=== PATIENT | female | born 1970 ===

== ENCOUNTER 2017-04-28 11:47 | Inpatient (IN) | payer MEDICAID ==
[2017-04-28 11:50] VITALS: BMI 26.4
[2017-04-28] MEDS ORDERED: (Novolin R) Insulin Human Regular 100 units/ml vial IV STA ×2 (12:22)
[2017-04-28] MEDS ORDERED: Sodium Chloride 0.9% 1,000 ML IV ONE ×2 (12:22→13:40)
[2017-04-28] MEDS ORDERED: Sodium Chloride 0.9% 1,000 ML ONE (12:32)
[2017-04-28 12:50] LABS: BASO # 0.1 K/uL (0.0-0.2); BASO % 0.9 % (0.0-2.0); EOS # 0.1 K/uL (0.0-0.7); EOS % 1.8 % (0.0-4.0); HEMOGLOBIN 15.6 g/dL (11.0-16.0); MEAN CELL VOLUME 89.2 fL (81.0-99.0); MEAN CORPUSCULAR HGB CONC 33.6 g/dL (33.0-37.0); MEAN PLATELET VOLUME 10.6 fL (7.2-11.7); MONO # 0.4 K/uL (0.0-0.8); MONO % 7.1 % (0.0-10.0); NEUT # 3.4 K/uL (1.8-7.0); NEUT % 57.2 % (50.0-75.0); NRBC % 0.3 % (0.0-2.0); RBC 5.19 Mil/uL (3.80-5.20); RED CELL DISTRIBUTION WIDTH 12.7 % (11.5-14.5)
[2017-04-28] MEDS ORDERED: (Novolin R) Insulin Human Regular 100 units/ml vial ONE ×2 (12:55→15:32)
[2017-04-28 12:59] LABS: ALBUMIN 3.9 g/dL (3.5-5.0)
[2017-04-28 13:01] LABS: AST/SGOT 102 U/L (14-36); GFR AFRICAN-AMERICAN > 60; GFR NON-AFRICAN AMERICAN > 60
[2017-04-28 13:01] LABS: VENOUS BLOOD GAS BASE EXCESS 1.7 mmol/L (0.0-2.0); VENOUS BLOOD GAS PCO2 28 mmHg (40-60); VENOUS BLOOD GAS PO2 47 mm/Hg (30-55); VENOUS BLOOD PH 7.53 (7.32-7.43)
[2017-04-28 13:02] LABS: ALT/SGPT 125 U/L (9-52); BLOOD UREA NITROGEN 13 mg/dL (7-17); CALCIUM 9.7 mg/dl (8.6-10.4); LIPASE 110 U/L (23-300)
[2017-04-28 13:26] LABS: CK-MB 0.29 ng/mL (0.0-3.38)
[2017-04-28 13:47] LABS: SQUAMOUS EPITHIAL 6 /hpf (0-5); URINE BACTERIA OCC (<OCC); URINE BILIRUBIN NEGATIVE (NEGATIVE); URINE BLOOD NEGATIVE (NEGATIVE); URINE CLARITY Clear (Clear); URINE COLOR Yellow (YELLOW); URINE GLUCOSE (UA) 3+ mg/dL (Normal); URINE NITRATE NEGATIVE (NEGATIVE); URINE PROTEIN NEGATIVE (NEGATIVE)
[2017-04-28 13:49] LABS: URINE LEUKOCYTE ESTERASE 1+ Leu/uL (Negative)
[2017-04-28] MEDS ORDERED: Morphine 4 MG/ML VIAL ONE ×2 (14:07→15:32)
[2017-04-28] MEDS ORDERED: Iodixanol 320 mg/ml 150 ml Bottle IV ONE (14:32)
[2017-04-28] MEDS ORDERED: (Novolin R) Insulin Human Regular 100 units/ml vial IV ONE (15:15)
--- NOTE | 2017-04-28 15:38 | CT ---
CT abdomen and pelvis History: Abdominal pain. Comparison: CT scan dated 04/20/2012 Technique: Multiple contiguous axial images were performed through the abdomen and pelvis with the use intravenous contrast. Subsequently, sagittal and coronal reformatted images were obtained. This CT exam was performed using one or more of the following dose reduction techniques: Automated exposure control, adjustment of the mA and/or kV according to patient size, and/or use of iterative reconstruction technique. Findings: 2 millimeter subpleural nodule along the right-sided fissure on series 3, image 1. Mild bibasilar atelectasis. No pleural or pericardial effusion. Enlarged liver with diffuse fatty infiltration and mild intrahepatic biliary ductal dilatation. Mild prominence of the common bile duct. Distended gallbladder. Prominent spleen. Adrenal glands are preserved. Pancreas is preserved. Gastric wall appears moderately thickened, nonspecific. Right kidney: No calculi or hydronephrosis. Left Kidney: No calculi or hydronephrosis. Moderate amount of air seen within the anterior aspect of the urinary bladder. Please correlate with recent instrumentation. In the absence of recent instrumentation, underlying emphysematous cystitis cannot be excluded. Clinical correlation. Heterogeneous uterus and bilateral adnexa. Prominent 8 millimeter calcification in the region of the left adnexa. Under distended and/or thickened sigmoid colon. Colonic diverticulosis. Fecal retention in the colon. Appendix is visualized best seen on series 3 images 120 through 138. Appendix is mildly prominent measuring up to 8.8 millimeters. No gross adjacent fat stranding or fluid. Indeterminate. Clinical correlation. Calcification and plaque within the aorta and iliac vessels. Few shotty para-aortic and inguinal lymph nodes. Few shotty mesenteric lymph nodes. Small fat containing umbilical hernia. Degenerative changes in the spine. Prominent posterior disc osteophyte complex at the L5-S1 level. Impression: 2 millimeter subpleural nodule along the right-sided fissure on series 3, image 1. Mild bibasilar atelectasis. No pleural or pericardial effusion. Enlarged liver with diffuse fatty infiltration and mild intrahepatic biliary ductal dilatation. Mild prominence of the common bile duct. Distended gallbladder. Prominent spleen. Adrenal glands are preserved. Pancreas is preserved. Gastric wall appears moderately thickened, nonspecific. Right kidney: No calculi or hydronephrosis. Left Kidney: No calculi or hydronephrosis. Moderate amount of air seen within the anterior aspect of the urinary bladder. Please correlate with recent instrumentation. In the absence of recent instrumentation, underlying emphysematous cystitis cannot be excluded. Clinical correlation. Heterogeneous uterus and bilateral adnexa. Prominent 8 millimeter calcification in the region of the left adnexa. Under distended and/or thickened sigmoid colon. Colonic diverticulosis. Fecal retention in the colon. Appendix is visualized best seen on series 3 images 120 through 138. Appendix is mildly prominent measuring up to 8.8 millimeters. No gross adjacent fat stranding or fluid. Indeterminate. Clinical correlation. Calcification and plaque within the aorta and iliac vessels. Few shotty para-aortic and inguinal lymph nodes. Few shotty mesenteric lymph nodes. Small fat containing umbilical hernia. Degenerative changes in the spine. Prominent posterior disc osteophyte complex at the L5-S1 level. Impression: 4 millimeter subpleural nodule along the right-sided fissure on series 3, image 1. Mild bibasilar atelectasis. No pleural or pericardial effusion. Enlarged liver with diffuse fatty infiltration and mild intrahepatic biliary ductal dilatation. Mild prominence of the common bile duct. Distended gallbladder. Prominent spleen. Adrenal glands are preserved. Pancreas is preserved. Gastric wall appears moderately thickened, nonspecific. Right kidney: No calculi or hydronephrosis. Left Kidney: No calculi or hydronephrosis. Moderate amount of air seen within the anterior aspect of the urinary bladder. Please correlate with recent instrumentation. In the absence of recent instrumentation, underlying emphysematous cystitis cannot be excluded. Clinical correlation. Heterogeneous uterus and bilateral adnexa. Prominent 8 millimeter calcification in the region of the left adnexa. Under distended and/or thickened sigmoid colon. Colonic diverticulosis. Fecal retention in the colon. Appendix is visualized best seen on series 3 images 120 through 138. Appendix is mildly prominent measuring up to 8.8 millimeters. No gross adjacent fat stranding or fluid. Indeterminate. Clinical correlation. Calcification and plaque within the aorta and iliac vessels. Few shotty para-aortic and inguinal lymph nodes. Few shotty mesenteric lymph nodes. Small fat containing umbilical hernia. Degenerative changes in the spine. Prominent posterior disc osteophyte complex at the L5-S1 level. Impression: 1. Moderate amount of air seen within the anterior aspect of the urinary bladder. Please correlate with recent instrumentation. In the absence of recent instrumentation, underlying emphysematous cystitis cannot be excluded. Clinical correlation. 2. Under distended and/or thickened sigmoid colon. Colonic diverticulosis. Clinical correlation. 3. Appendix is visualized best seen on series 3 images 120 through 138. Appendix is mildly prominent measuring up to 8.8 millimeters. No gross adjacent fat stranding or fluid. Indeterminate. Clinical correlation. 4. Enlarged liver with diffuse fatty infiltration and mild intrahepatic biliary ductal dilatation. Mild prominence of the common bile duct. 5. Distended gallbladder. 6. Prominent spleen. 7. Gastric wall appears moderately thickened, nonspecific. Clinical correlation. 8. Heterogeneous uterus and bilateral adnexa. Prominent 8 millimeter calcification in the region of the left adnexa. 8. 4 millimeter subpleural nodule along the right-sided fissure on series 3, image 1. Mild bibasilar atelectasis. 9. Prominent posterior disc osteophyte complex at the L5-S1 level.
--- NOTE | 2017-04-28 15:52 | C.PDOC ---
History Of Present Illness 46 year old female presents to the ED with complaints of bilateral lower leg pain since yesterday. Patient notes she was diagnosed with neuropathy and has had similar symptoms for many months. She also complains of nausea, vomiting, dysuria, urinary frequency, and thirst. Patient states she is complaint with medications and took ibuprofen for symptoms with no relief. She denies any fever or other complaints at this time. Time Seen by Provider: 04/28/17 12:10 Chief Complaint (Nursing): Lower Extremity Problem/Injury History Per: Patient History/Exam Limitations: no limitations Onset/Duration Of Symptoms: Days (since yesterday has had nausea, vomiting, dysuria, urinary frequency, and thirst ), Persistent (similiar bilateral leg pain for months ) Current Symptoms Are (Timing): Still Present Recent travel outside of the [place]: No Past Medical History Reviewed: Historical Data, Nursing Documentation, Vital Signs Vital Signs: Last Vital Signs Temp 98.1 F 04/28/17 17:02 Pulse 64 04/28/17 17:02 Resp 18 04/28/17 17:02 BP 136/92 H 04/28/17 17:02 Pulse Ox 100 04/28/17 18:00 - Medical History PMH: Anxiety, Bipolar Disorder, Diabetes, Post Traumatic Stress Disorder Family History: States: Unknown Family Hx - Social History Hx Tobacco Use: Yes Hx Alcohol Use: No Hx Substance Use: Yes (Methadone) - Immunization History Hx Tetanus Toxoid Vaccination: No Hx Influenza Vaccination: No Hx Pneumococcal Vaccination: No Review Of Systems Constitutional: Positive for: Other (increase thirst ). Negative for: Fever, Chills Cardiovascular: Negative for: Chest Pain Respiratory: Negative for: Cough, Shortness of Breath Gastrointestinal: Positive for: Nausea, Vomiting. Negative for: Diarrhea Genitourinary: Positive for: Dysuria, Frequency Neurological: Negative for: Weakness, Numbness, Headache Physical Exam - Physical Exam Appears: Non-toxic, In Acute Distress (painful) Skin: Warm, Dry Head: Atraumatic, Normacephalic Eye(s): bilateral: Normal Inspection, EOMI Nose: Normal Oral Mucosa: Moist Neck: Supple Chest: Symmetrical, No Deformity Cardiovascular: Rhythm Regular Respiratory: Normal Breath Sounds, No Rhonchi, No Wheezing Gastrointestinal/Abdominal: Soft, Tenderness (diffuse abdominal tenderness ), No Distention, No Guarding, No Rebound Back: No CVA Tenderness, No Vertebral Tenderness, Paraspinal Tenderness (lower paralumbar/buttock tenderness) Extremity: Normal ROM, Capillary Refill (good capillary refill ), No Swelling ( no increase swelling ), Other (diffuse leg tenderness; track rowe on legs (pt notes they are old); no erythema ) Extremity: Bilateral: Atraumatic, Normal Color And Temperature, Normal ROM Pulses: Left Dorsalis Pedis: Normal, Right Dorsalis Pedis: Normal Neurological/Psych: Oriented x3, Normal Speech, Normal Cognition, Normal Motor, Normal Sensation Gait: Steady ED Course And Treatment - Laboratory Results Result Diagrams: 04/28/17 12:33 04/28/17 12:41 ECG: Interpreted By Me, Viewed By Me ECG Rhythm: Sinus Rhythm ECG Interpretation: No Acute Changes Rate From EC (bpm) O2 Sat by Pulse Oximetry: 100 (room air ) Pulse Ox Interpretation: Normal - CT Scan/US Abd & pelvis CT Other Rad Studies (CT/US): Read By Radiologist, Radiology Report Reviewed CT/US Interpretation: Findings: 2 millimeter subpleural nodule along the right- sided fissure on series 3, image 1. Mild bibasilar atelectasis. No pleural or pericardial effusion. Enlarged liver with diffuse fatty infiltration and mild intrahepatic biliary ductal dilatation. Mild prominence of the common bile duct. Distended gallbladder. Prominent spleen. Adrenal glands are preserved. Pancreas is preserved. Gastric wall appears moderately thickened, nonspecific. Right kidney: No calculi or hydronephrosis. Left Kidney: No calculi or hydronephrosis. Moderate amount of air seen within the anterior aspect of the urinary bladder. Please correlate with recent instrumentation. In the absence of recent instrumentation, underlying emphysematous cystitis cannot be excluded. Clinical correlation. Heterogeneous uterus and bilateral adnexa. Prominent 8 millimeter calcification in the region of the left adnexa. Under distended and/or thickened sigmoid colon. Colonic diverticulosis. Fecal retention in the colon. Appendix is visualized best seen on series 3 images 120 through 138. Appendix is mildly prominent measuring up to 8.8 millimeters. No gross adjacent fat stranding or fluid. Indeterminate. Clinical correlation. Calcification and plaque within the aorta and iliac vessels. Few shotty para-aortic and inguinal lymph nodes. Few shotty mesenteric lymph nodes. Small fat containing umbilical hernia. Degenerative changes in the spine. Prominent posterior disc osteophyte complex at the L5-S1 level. Impression: 2 millimeter subpleural nodule along the right-sided fissure on series 3, image 1. Mild bibasilar atelectasis. No pleural or pericardial effusion. Enlarged liver with diffuse fatty infiltration and mild intrahepatic biliary ductal dilatation. Mild prominence of the common bile duct. Distended gallbladder. Prominent spleen. Adrenal glands are preserved. Pancreas is preserved. Gastric wall appears moderately thickened, nonspecific. Right kidney: No calculi or hydronephrosis. Left Kidney: No calculi or hydronephrosis. Moderate amount of air seen within the anterior aspect of the urinary bladder. Please correlate with recent instrumentation. In the absence of recent instrumentation, underlying emphysematous cystitis cannot be excluded. Clinical correlation. Heterogeneous uterus and bilateral adnexa. Prominent 8 millimeter calcification in the region of the left adnexa. Under distended and/or thickened sigmoid colon. Colonic diverticulosis. Fecal retention in the colon. Appendix is visualized best seen on series 3 images 120 through 138. Appendix is mildly prominent measuring up to 8.8 millimeters. No gross adjacent fat stranding or fluid. Indeterminate. Clinical correlation. Calcification and plaque within the aorta and iliac vessels. Few shotty para-aortic and inguinal lymph nodes. Few shotty mesenteric lymph nodes. Small fat containing umbilical hernia. Degenerative changes in the spine. Prominent posterior disc osteophyte complex at the L5-S1 level. Impression: 4 millimeter subpleural nodule along the right-sided fissure on series 3, image 1. Mild bibasilar atelectasis. No pleural or pericardial effusion. Enlarged liver with diffuse fatty infiltration and mild intrahepatic biliary ductal dilatation. Mild prominence of the common bile duct. Distended gallbladder. Prominent spleen. Adrenal glands are preserved. Pancreas is preserved. Gastric wall appears moderately thickened, nonspecific. Right kidney: No calculi or hydronephrosis. Left Kidney: No calculi or hydronephrosis. Moderate amount of air seen within the anterior aspect of the urinary bladder. Please correlate with recent instrumentation. In the absence of recent instrumentation, underlying emphysematous cystitis cannot be excluded. Clinical correlation. Heterogeneous uterus and bilateral adnexa. Prominent 8 millimeter calcification in the region of the left adnexa. Under distended and/or thickened sigmoid colon. Colonic diverticulosis. Fecal retention in the colon. Appendix is visualized best seen on series 3 images 120 through 138. Appendix is mildly prominent measuring up to 8.8 millimeters. No gross adjacent fat stranding or fluid. Indeterminate. Clinical correlation. Calcification and plaque within the aorta and iliac vessels. Few shotty para-aortic and inguinal lymph nodes. Few shotty mesenteric lymph nodes. Small fat containing umbilical hernia. Degenerative changes in the spine. Prominent posterior disc osteophyte complex at the L5-S1 level. Impression: 1. Moderate amount of air seen within the anterior aspect of the urinary bladder. Please correlate with recent instrumentation. In the absence of recent instrumentation, underlying emphysematous cystitis cannot be excluded. Clinical correlation. 2. Under distended and/or thickened sigmoid colon. Colonic diverticulosis. Clinical correlation. 3. Appendix is visualized best seen on series 3 images 120 through 138. Appendix is mildly prominent measuring up to 8.8 millimeters. No gross adjacent fat stranding or fluid. Indeterminate. Clinical correlation. 4. Enlarged liver with diffuse fatty infiltration and mild intrahepatic biliary ductal dilatation. Mild prominence of the common bile duct. 5. Distended gallbladder. 6. Prominent spleen. 7. Gastric wall appears moderately thickened, nonspecific. Clinical correlation. 8. Heterogeneous uterus and bilateral adnexa. Prominent 8 millimeter calcification in the region of the left adnexa. 8. 4 millimeter subpleural nodule along the right-sided fissure on series 3, image 1. Mild bibasilar atelectasis. 9. Prominent posterior disc osteophyte complex at the L5-S1 level. Progress Note: Upon re-evaluation patient states abdominal pain persists. Morphine and CT scan were ordered and patient notes some improvement. CT results reviewed. Pt denies any procedure or catheter. CT scan results were discussed with Dr. Wall who instructs medical admission and ID consult. Disposition - Disposition Disposition: HOSPITALIZED Disposition Time: 17:00 Condition: STABLE - Clinical Impression Clinical Impression: Uncontrolled diabetes mellitus, Cystitis, Neuropathy - Scribe Statement The provider has reviewed the documentation as recorded by the Scribe Rachell Bailey All medical record entries made by the Lemuelibe were at my direction and personally dictated by me. I have reviewed the chart and agree that the record accurately reflects my personal performance of the history, physical exam, medical decision making, and the department course for this patient. I have also personally directed, reviewed, and agree with the discharge instructions and disposition.
[2017-04-28] MEDS ORDERED: cefTRIAXone IV 1 gm in Dextros 50 ML IV ONE (16:55)
[2017-04-28] MEDS ORDERED: cefTRIAXone IV 1 gm in Dextros 50 ML IVPB ONE (17:32)
[2017-04-28] MEDS ORDERED: DiphenhydrAMINE 50 mg/ml Inj IVP STA (19:03)
[2017-04-28] MEDS ORDERED: MethylPREDNISolone 40 mg Vial IVP STA (19:03)
--- NOTE | 2017-04-28 19:57 | CP.PCM.HP ---
<Olivia Velez - Last Filed: 04/28/17 20:28> History of Present Illness - History of Present Illness History of Present Illness: cc: Leg and abdominal pain Patient is a 46 F with PMH of DM, HTN, Hep C, heroin/cocain/alcohol abuser 4 years ago who presents to the ED with bilateral leg and abdominal pain that has been getting worse since Saturday. Patient also has urinary frequency and burning that his been on and off for 3 months and has never been treated. Patient describes her urine as beer colored and foamy. Patient describes the abdominal pain to be in the LLQ and RUQ and has had nausea and two episodes of vomiting over the weekend. Patient says her legs feel like they are burning. Patient denies chest pain now although she says she had some when she first came to the ED. She denies headache, palpitations, shortness of breath, constipation, or diarrhea. PMH:DM, HTN, Hep C, heroin/cocain/alcohol abuser 4 years ago Psurgical: back abscess, abdominal abscess many years ago Family hx: Mom and Aunt-DM Socialhx: tobacco: 5 cigarettes per day for about 30 years EtOH: sober for 4 years, used to drink one bottle of hard liquor per day Drugs: sober for 4 years, used to inject heroin, snort cocaine goes to [facility] Home Meds:Neurontin 800mg lantus 25 u daily humalog with meals metformin 500 mg daily ambien 10 mg HS htn medication seroquel constipation medication PRN Present on Admission - Present on Admission Any Indicators Present on Admission: Yes History of DVT/PE: No History of Uncontrolled Diabetes: Yes Urinary Catheter: No Decubitus Ulcer Present: No Review of Systems - Constitutional Constitutional: absent: Fever, Headache - EENT Eyes: absent: Blurred Vision Nose/Mouth/Throat: absent: Nasal Congestion, Hoarsness, Sore Throat - Cardiovascular Cardiovascular: absent: Chest Pain, Diaphoresis, Dyspnea on Exertion, Edema, Leg Edema, Lightheadedness - Respiratory Respiratory: absent: Cough, Dyspnea, Wheezing - Gastrointestinal Gastrointestinal: absent: Constipation, Diarrhea, Hematochezia - Genitourinary Genitourinary: Dysuria, Flank Pain, Urinary Frequency Additional comments: mild left flank pain - Reproductive: Female Reproductive:Female: Post Menopausal - Musculoskeletal Musculoskeletal: Arthralgias, Myalgias Additional comments: burning in legs - Integumentary Integumentary: absent: Bleeding Lesions, Changing Lesions, Erythema, Swelling - Neurological Neurological: Burning Sensations. absent: Headaches - Psychiatric Psychiatric: absent: Confusion - Endocrine Endocrine: absent: Excessive Sweating, Palpitations - Hematologic/Lymphatic Hematologic: absent: Easy Bleeding, Easy Bruising Past Patient History - Past Social History Smoking Status: Light Smoker < 10 Cigarettes Daily - ENDOCRINE/METABOLIC Hx Diabetes Mellitus Type 1: Yes - PSYCHIATRIC Hx Anxiety: Yes Hx Bipolar Disorder: Yes Hx Post Traumatic Stress Disorder: Yes Hx Substance Use: Yes (Methadone) - SURGICAL HISTORY Hx Surgeries: No - ANESTHESIA Hx Anesthesia: No Meds Allergies/Adverse Reactions: Allergies Allergy/AdvReac Type Severity Reaction Status Date / Time Penicillins Allergy PAIN Verified 04/28/17 20:52 Physical Exam - Constitutional Appears: Non-toxic, In Acute Distress - Head Exam Head Exam: ATRAUMATIC, NORMAL INSPECTION, NORMOCEPHALIC - Eye Exam Eye Exam: EOMI, Normal appearance, PERRL - ENT Exam ENT Exam: Mucous Membranes Moist, Normal Exam - Neck Exam Neck exam: Positive for: Normal Inspection. Negative for: Tenderness - Respiratory Exam Respiratory Exam: Clear to Auscultation Bilateral, NORMAL BREATHING PATTERN. absent: Rales, Rhonchi, Wheezes, Respiratory Distress, Stridor - Cardiovascular Exam Cardiovascular Exam: REGULAR RHYTHM, RRR. absent: Gallop, Rubs, Systolic Murmur - GI/Abdominal Exam GI & Abdominal Exam: Normal Bowel Sounds, Tenderness Additional comments: RUQ tenderness and LLQ tenderness - Extremities Exam Extremities exam: Positive for: tenderness. Negative for: joint swelling, normal inspection Additional comments: tenderness b/l in legs and feet, feels like burning - Back Exam Back exam: CVA tenderness (L), NORMAL INSPECTION Additional comments: mild CVA tenderness on left side - Neurological Exam Neurological exam: Alert, Oriented x3 - Psychiatric Exam Psychiatric exam: Anxious - Skin Skin Exam: Intact, Normal Color, Warm Results - Vital Signs Recent Vital Signs: Last Vital Signs Temp 98.7 F 04/28/17 18:40 Pulse 61 04/28/17 18:40 Resp 20 04/28/17 18:40 BP 155/99 H 04/28/17 18:40 Pulse Ox 97 04/28/17 18:40 - Labs Result Diagrams: 04/28/17 12:33 04/28/17 12:41 Labs: Laboratory Results - last 24 hr 04/28/17 16:57 POC Glucose (mg/dL) 276 H Assessment & Plan - Assessment and Plan (Free Text) Assessment: 1. Complicated Urinary Tract Infection suspicion for emphysematous cystitis -CT scan:moderate amount of air in urinary bladder, emphysematous cystitis cannot be excluded -Urology Consult, Dr. Kateryna Rangel, help appreciated -ID consult, Dr. Payne, help appreciated -Florastor 250mg PO BID -UA, urine culture -Aztreonam 2 g IV q8h -gonorrhea, chlamydia 2. Abdominal Pain -amylase: normal -lipase: normal -abnormal CT scan: enlarged liver with diffuse fatty infiltration and mild intrahepatic biliary ductal dilation, distended gallbladder, appendix 8.8mm -abdominal U/S ordered -RUQ pain -general surger, Dr. Dodd, help appreciated 3. Questionable Penicillin Allergy -f/u with PMD, Dr. Parrish -solumedrol 40 mg iv x1, Benadryl 25mg x1, Pepcid 20 mg iv x1 4. Uncontrolled Diabetes -HbA1c, Lipid in AM -Accucheck q6 hours -D51/2 NS 100 cc/ hour -Lantus 25 units q daily -Novolog sliding scale (low) -Hold metformin -Neurontin 800mg po daily 5. Hypertension -f/u pharmacy to confirm meds -monitor vitals 6. Bipolar disorder -Seroquel 25mg po daily -f/u pharmacy to confirm 7. Leg Pain CPK-25 8. Prior use of Heroin -will confirm with [facility] [place] for Meth[place] dose -No narcotic medications 9. Hepatitis C -hx of hep C -not on treatment -HIV 1&2, Hepatitis panel 10. Prophylactic Measure - protonix 40 mg IVQ daily -Hepain 5000 units sc q8h -florastor 250 mg po bid <Liya Melissa V - Last Filed: 04/28/17 21:11> Results - Vital Signs Recent Vital Signs: Last Vital Signs Temp 98.7 F 04/28/17 18:40 Pulse 61 04/28/17 18:40 Resp 20 04/28/17 18:40 BP 155/99 H 04/28/17 18:40 Pulse Ox 97 04/28/17 18:40 - Labs Result Diagrams: 04/28/17 12:33 04/28/17 12:41 Labs: Laboratory Results - last 24 hr 04/28/17 16:57 POC Glucose (mg/dL) 276 H Attending/Attestation - Attestation I have personally seen and examined this patient.: Yes I have fully participated in the care of the patient.: Yes I have reviewed all pertinent clinical information: Yes Notes (Text): Patient seen, examined, and case discussed with day-time senior insight manager international. Patient reporting recurrent urinary tract symptoms over the past few months "long time" wherein she reports she has never tried antibiotics and reports that the pain associated has gone away on its own in the past. Patient reports pain worsened on Saturday and reports her abdomen hurts her. Patient reports she was told by her PMD, Dr. Parrish to go to a urologist but she has not gone. patient denies use of noyola or any procedure. Patient reports she took her Methadone this morning prior to coming in. Patient is a former heroin/cocaine user, sober for 4 years. Patient reports she has not felt like eating. Patient also reports leg pains for "long time" wherein she is on Neurontin 800mg PO daily but reports does not help her. Patient reports sensation intact and able to feel my hands across legs. PT and DT pulses are appreciable. Admitting diagnoses and orders discussed with day-time senior insight manager international. Patient reports a questionable history of allergy to pencillin which she was told she was "allergic" when she was kid by her mother,pt does not recall reaction. Patient reports she has tolerated Augmentin/Amoxcillin in the past. In the ED, patient given a dose of Rocephin. Given as preventive for allergic, Solumedrol 40mg IVX1, Benadryl 25mg IVX1, and Pepcid 20mg IVX1 in light of this questionable allergy and cross reactivity between penciillin and cephalosporins. Assessment/Plan 1. Complicated Urinary Tract Infection * suspicion for emphysematous cystitis * CT scan (04/28/17) :moderate amount of air in urinary bladder, emphysematous cystitis cannot be excluded (further details available on the EMR) * Urology Consult, Dr. Kateryna Rangel, help appreciated * ID consult, Dr. Payne, help appreciated--f/u given questionable PCN allergy * Florastor 250mg PO BID * f/u UA, urine culture * IV abx: Aztreonam 2 g IV q8h * Ordered for STD testing given patient is sexually active, no condoms, and prior history of prostitution: gonorrhea, chlamydia 2. Abdominal Pain * amylase: normal; lipase: normal * CT scan (04/28/17): enlarged liver with diffuse fatty infiltration and mild intrahepatic biliary ductal dilation, distended gallbladder, appendix 8.8mm ( further details available in the EMR) * Abdominal U/S ordered -RUQ pain; patient has negative James's sign on exam * General surgery, Dr. Dodd, help appreciated-->for further evaluation 3. Questionable Penicillin Allergy * f/u with PMD, Dr. Parrish, regarding confirmation of patient's allergy * Given: solumedrol 40 mg iv x1, Benadryl 25mg x1, Pepcid 20 mg iv x1 in light of receiving Rocephin in the ED; patient denies pruritus; swelling nor oropharyngeal involvement * Patient reports she has tolerated Amoxicillin/Augmentin in the past 4. Uncontrolled Diabetes * HbA1c, Lipid in AM * Accucheck q6 hours * D51/2 NS 100 cc/ hour * Lantus 25 units q daily (patient took this morning) * Novolog sliding scale (low) subq * Hold metformin on admission * Neurontin 800mg PO daily 5. Hypertension * f/u pharmacy to confirm meds; patient cannot recall medication * monitor vitals 6. History of Bipolar disorder and PTSD * Patient started on low dose Seroquel 25mg po daily until her actual dose is confirmed in the AM * f/u pharmacy to confirm 7. Leg Pain * CPK is low * Ordered for arterial duplex 8. Prior use of Heroin * Will confirm with [facility] [place] for Meth[facility] dose * No narcotic medications * Has been sober for 4 years; on methadone maintenance 9. Hepatitis C * hx of hep C * not on treatment * HIV 1&2, Hepatitis panel 10. Prophylactic Measure * protonix 40 mg IVQ daily for GI ppx * Heparin 5000 units sc q8h * florastor 250 mg po bid * NPO * D51/2 NS 100cc/hr
[2017-04-28] MEDS: (Novolog) Insulin Aspart, Recombinant 100 u/ml 10 ml vial SC SCH ×2 (20:17→22:04)
[2017-04-28] MEDS: Dextrose 5%/0.45% NS 1,000 ML IV SCH (20:36)
[2017-04-28] MEDS: Saccharomyces Boulardi 250 mg Cap PO SCH (20:36)
[2017-04-28] MEDS ORDERED: Aztreonam 2 GM in Sodium Chloride 0.9% 100 ML IVPB SCH (21:00)
[2017-04-28] MEDS ORDERED: Naloxone 0.4 mg/ml Inj (Adult) IVP ONE (22:45)
[2017-04-28] MEDS: Cefepime IV 2 gm in Dextrose 2 GM/100 ML BAG IVPB SCH (22:52)
--- NOTE | 2017-04-28 23:36 | CP.PCM.PN ---
Subjective - Date & Time of Evaluation Date of Evaluation: 04/29/17 Time of Evaluation: 00:07 - Subjective Subjective: House Doctor responding to page As per Nurse, the patient's son visited the patient, and shortly after he left, the patient's mental status changed. Upon exam, patient was lethargic, slurring words, startled by movement and my speech. UDS was unable to be obtained, since patient's urine sample was insufficient and consumed by toilet paper. Patient was given Narcan and Head CT ordered. --- CLINICAL DOCUMENT IMPROVEMENT EDUCATOR @ 21:14 After administration of the Narcan, patient started to become aggressive, hyperarrousal, and removed all her clothing. Ativan 2mg IV was given. Patient continued the same behavior. Patient ripped out her IV access. Haldol 5mg IM x2 was given in total and the patient is now somewhat calm. A syringe was found at bedside. As per patient she has diabetes and takes lantus at night. 1:1 ordered , psych consult ordered. Continue 1:[address] - once patient is more calm Pending UDS Objective - Vital Signs/Intake and Output Vital Signs (last 24 hours): Temp Pulse Resp BP Pulse Ox 98.7 F 61 20 155/99 H 97 04/28/17 18:40 04/28/17 18:40 04/28/17 18:40 04/28/17 18:40 04/28/17 18:40 - Medications Medications: Current Medications Famotidine (Pepcid) 20 mg IVP ONCE ONE Stop: 04/29/17 19:04 Gabapentin (Neurontin) 800 mg PO DAILY [facility] Heparin Sodium (Porcine) (Heparin) 5,000 units SC Q8 [facility] Last Admin: 04/28/17 22:51 Dose: 5,000 units Dextrose/Sodium Chloride (Dextrose 5%/0.45% Ns 1000 Ml) 1,000 mls @ 100 mls/hr IV .Q10H [facility] Last Admin: 04/28/17 20:36 Dose: 100 mls/hr Cefepime HCl (Maxipime Iv 2 Gm Premix) 2 gm in 100 mls @ 100 mls/hr IVPB Q12H [facility] Stop: 05/03/17 22:01 Last Admin: 04/28/17 22:52 Dose: 100 mls/hr Aztreonam 2 gm/ Sodium (Chloride) 100 mls @ 200 mls/hr IVPB Q8H [facility] Insulin Aspart (Novolog) 0 unit SC ACHS [facility] PRN Reason: Protocol Last Admin: 04/28/17 22:04 Dose: Not Given Insulin Glargine (Lantus) 25 unit SC HS [facility] Pantoprazole Sodium (Protonix Inj) 40 mg IVP DAILY [facility] Quetiapine Fumarate (Seroquel) 25 mg PO DAILY [facility] Saccharomyces Boulardii (Florastor) 250 mg PO BID [facility] Last Admin: 04/28/17 20:36 Dose: 250 mg Zolpidem Tartrate (Ambien) 5 mg PO HS PRN PRN Reason: Insomnia
--- NOTE | 2017-04-29 01:55 | CP.PCM.CON ---
History of Present Illness - History of Present Illness History of Present Illness: GENERAL SURGERY CONSULT NOTE FOR DR. DOZIER 46yo F with PMHx of DM, HTN, bipolar, Hep C, former heroin/cocain/alcohol abuser now on methadone who presents to the ED with chief complaint of bilateral leg pain. She also had RUQ and LLQ abdominal pain with 3 episodes of emesis. The patient states that the abdominal pain is completely gone now. She denies pain after eating or relating to food intake. She also had dysuria, urinary frequency, and increased thirst on and off over the past 3 months. She denies diarrhea. PMHx: DM, HTN, bipolar, Hep C, heroin/cocain/alcohol abuser 4 years ago Surgical: I&D of back abscess, abdominal abscess many years ago Socialhx: tobacco: 5 cigarettes per day for about 30 years; EtOH: sober for 4 years, used to drink one bottle of hard liquor per day; Drugs: sober for 4 years , used to inject heroin, snort cocaine, goes [facility] Review of Systems - Review of Systems All systems: reviewed and no additional remarkable complaints except (as per HPI ) Past Patient History - Past Social History Smoking Status: Light Smoker < 10 Cigarettes Daily - CARDIAC Hx Hypertension: Yes - PULMONARY Hx Respiratory Disorders: No - NEUROLOGICAL Hx Neurological Disorder: No - HEENT Hx HEENT Problems: No - RENAL Hx Chronic Kidney Disease: No - ENDOCRINE/METABOLIC Hx Diabetes Mellitus Type 1: Yes - HEMATOLOGICAL/ONCOLOGICAL Hx Blood Disorders: Yes Hx Hepatitis C: Yes - INTEGUMENTARY Hx Dermatological Problems: No - MUSCULOSKELETAL/RHEUMATOLOGICAL Hx Musculoskeletal Disorders: No Hx Falls: No - GASTROINTESTINAL Hx Gastrointestinal Disorders: No - GENITOURINARY/GYNECOLOGICAL Hx Genitourinary Disorders: No - PSYCHIATRIC Hx Anxiety: Yes Hx Bipolar Disorder: Yes Hx Post Traumatic Stress Disorder: Yes Hx Substance Use: Yes (Methadone) - SURGICAL HISTORY Hx Surgeries: No - ANESTHESIA Hx Anesthesia: No Meds Allergies/Adverse Reactions: Allergies Allergy/AdvReac Type Severity Reaction Status Date / Time Penicillins Allergy PAIN Verified 04/28/17 20:52 - Medications Medications: Current Medications Famotidine (Pepcid) 20 mg IVP ONCE ONE Stop: 04/29/17 19:04 Gabapentin (Neurontin) 800 mg PO DAILY [facility] Heparin Sodium (Porcine) (Heparin) 5,000 units SC Q8 [facility] Last Admin: 04/28/17 22:51 Dose: 5,000 units Dextrose/Sodium Chloride (Dextrose 5%/0.45% Ns 1000 Ml) 1,000 mls @ 100 mls/hr IV .Q10H [facility] Last Admin: 04/28/17 20:36 Dose: 100 mls/hr Cefepime HCl (Maxipime Iv 2 Gm Premix) 2 gm in 100 mls @ 100 mls/hr IVPB Q12H [facility] Stop: 05/03/17 22:01 Last Admin: 04/28/17 22:52 Dose: 100 mls/hr Aztreonam 2 gm/ Sodium (Chloride) 100 mls @ 200 mls/hr IVPB Q8H [facility] Insulin Aspart (Novolog) 0 unit SC ACHS [facility] PRN Reason: Protocol Last Admin: 04/28/17 22:04 Dose: Not Given Insulin Glargine (Lantus) 25 unit SC HS [facility] Pantoprazole Sodium (Protonix Inj) 40 mg IVP DAILY [facility] Quetiapine Fumarate (Seroquel) 25 mg PO DAILY [facility] Saccharomyces Boulardii (Florastor) 250 mg PO BID [facility] Last Admin: 04/28/17 20:36 Dose: 250 mg Zolpidem Tartrate (Ambien) 5 mg PO HS PRN PRN Reason: Insomnia Physical Exam - Constitutional Appears: Non-toxic, No Acute Distress - Head Exam Head Exam: ATRAUMATIC - Respiratory Exam Respiratory Exam: NORMAL BREATHING PATTERN. absent: Respiratory Distress - Cardiovascular Exam Cardiovascular Exam: +S1, +S2 - GI/Abdominal Exam GI & Abdominal Exam: Soft, Tenderness (tender in RUQ, mild tender on deep palpation of LLQ, no tenderness in RLQ on deep palpation). absent: Distended, Firm, Guarding, Rebound, Rigid Additional comments: + Rinard sign - Extremities Exam Additional comments: tenderness in bilateral legs and feet - Neurological Exam Neurological exam: Alert - Psychiatric Exam Psychiatric exam: Flat Affect - Skin Skin Exam: Dry, Normal Color Results - Vital Signs Recent Vital Signs: Last Vital Signs Temp 98.7 F 04/28/17 18:40 Pulse 61 04/28/17 18:40 Resp 20 04/28/17 18:40 BP 155/99 H 04/28/17 18:40 Pulse Ox 97 04/28/17 18:40 - Labs Result Diagrams: 04/28/17 12:33 04/28/17 12:41 Labs: Laboratory Results - last 24 hr 04/28/17 04/28/17 16:57 21:41 POC Glucose (mg/dL) 276 H 312 H Assessment & Plan - Assessment and Plan (Free Text) Assessment: 46yo F with PMHx of DM, HTN, bipolar, Hep C, former heroin/cocain/alcohol abuser now on methadone who has RUQ and LLQ abdominal pain - Afebrile, VSS - T bili WNL - AST, ALT, Alk phos elevated (were elevated on previous ED visit in February) - CT: moderate amount of air in bladder, emphysematous cystitis cannot be excluded; mild prominence of CBD; distended GB; fecal retention; diverticulosis ; appendix mildly prominent 8.8mm; no adjacent fat stranding or fluid - Abdominal US ordered by primary team, will follow up with results to rule out biliary pathology - Unlikely appendicitis given normal WBC and non tender in RLQ - Discussed plan with Dr. Ju Mariee PGY-3
--- NOTE | 2017-04-29 05:09 | CT ---
EXAM: CT Head Without Intravenous Contrast CLINICAL HISTORY: 46 years old, female; Signs and symptoms; Altered mental status/memory loss; Confusion or disorientation; Additional info: AMS TECHNIQUE: Axial computed tomography images of the head/brain without intravenous contrast. This CT exam was performed using one or more of the following dose reduction techniques: automated exposure control, adjustment of the mA and/or kV according to patient size, and/or use of iterative reconstruction technique. COMPARISON: No relevant prior studies available. FINDINGS: Brain: Mild atrophy. No intracranial hemorrhage. No mass. No definite edema. Ventricles: No hydrocephalus. Bones/joints: No acute fracture. Soft tissues: Unremarkable. Sinuses: No acute sinusitis. Mastoid air cells: No mastoid effusion. Orbits: Unremarkable as visualized. IMPRESSION: 1. No definite acute intracranial abnormality. Acute infarction may be CT occult within first 24 hours. If a focal deficit persists, consider followup CT or MRI for further evaluation. 2. Incidental/non-acute findings are described above.
[2017-04-29] MEDS: Aztreonam 2 GM in Sodium Chloride 0.9% 100 ML IVPB SCH ×3 (05:40→21:53)
[2017-04-29] MEDS: Dextrose 5%/0.45% NS 1,000 ML IV SCH (05:49)
[2017-04-29 08:29] LABS: INR 1.1; PROTHROMBIN TIME 12.6 SECONDS (9.7-12.2)
[2017-04-29 08:44] LABS: HDL CHOLESTEROL 20 mg/dL (30-70)
[2017-04-29 08:56] LABS: LDL CHOLESTEROL 69 mg/dL (0-129)
[2017-04-29 09:16] LABS: HEPATITIS B SURFACE AG NEGATIVE (NEGATIVE)
[2017-04-29 09:21] LABS: HEPATITIS A IGM NEGATIVE (NEGATIVE)
[2017-04-29 09:22] LABS: HEPATITIS B CORE AB NEGATIVE (NEGATIVE)
[2017-04-29] MEDS: Saccharomyces Boulardi 250 mg Cap PO SCH ×2 (09:50→17:12)
[2017-04-29] MEDS: Cefepime IV 2 gm in Dextrose 2 GM/100 ML BAG IVPB SCH ×2 (09:54→22:45)
[2017-04-29] MEDS: (Novolog) Insulin Aspart, Recombinant 100 u/ml 10 ml vial SC SCH ×4 (10:38→22:03)
--- NOTE | 2017-04-29 11:46 | RAD ---
HISTORY: abdominal pain COMPARISON: 10/03/2015 TECHNIQUE: Chest PA and lateral FINDINGS: LUNGS: No active pulmonary disease. PLEURA: No significant pleural effusion identified. No pneumothorax apparent. CARDIOVASCULAR: Normal. OSSEOUS STRUCTURES: No significant abnormalities. VISUALIZED UPPER ABDOMEN: Normal. OTHER FINDINGS: None. IMPRESSION: No active disease.
[2017-04-29 11:48] LABS: HEPATITIS C ANTIBODY REACTIVE (NEGATIVE)
--- NOTE | 2017-04-29 11:57 | US ---
HISTORY: RUQ pain COMPARISON: CT abdomen/pelvis 04/28/2017 TECHNIQUE: Sonographic evaluation of the abdomen. FINDINGS: LIVER: Measures 18.9 cm. Diffusely increased echogenicity of the liver parenchyma. Consistent with fatty infiltration. Smooth contour. No mass. No intrahepatic biliary dilatation. GALLBLADDER: Cholelithiasis. Small while sludge noted. No mural thickening. No pericholecystic fluid. Negative sonographic James sign. COMMON BILE DUCT: Measures 5 mm. No stones. No dilatation. PANCREAS: Unremarkable as visualized. No mass. No ductal dilatation. RIGHT KIDNEY: Measures 11.6cm. Normal echogenicity. No calculus, mass, or hydronephrosis. LEFT KIDNEY: Measures 11.0cm. Normal echogenicity. No calculus, mass, or hydronephrosis. SPLEEN: Normal in size and contour. No mass. AORTA: No aneurysmal dilatation. IVC: Unremarkable. OTHER FINDINGS: None. IMPRESSION: Cholelithiasis without sonographic evidence of cholecystitis. Mild hepatomegaly with fatty infiltration. No additional abnormality.
--- NOTE | 2017-04-29 14:09 | PCM.PSYCH ---
Initial Psychiatric Evaluation - Initial Psychiatric Evaluation Type of Admission: Voluntary Legal Status: Capacity Chief Complaint (in patient's own words): 'I have pain in my legs' History of Present Illness and Precipitating Events: Patient is a 46 years-old female, who lives alone, presented to the ED with pain in her legs. We were consulted due to her mental status change for suspicion of heroin overdose after her son visited yesterday. As per the staff, she was lethargic, slurring words, and acting up. There was insufficient amount of urine for toxicology screening. Patient was seen and evaluated today. She denies any substance abuse and states that she has not abused heroin for past 4 years. She states that she has been on methadone 200 mg/day and attends [facility] methadone clinic regularly in [place], [place] for past 4 years. She does not appear lethargic, or slurring any words. However, she appears to have methadone withdrawal s/s. Patient reports nausea, back pain, and anxiety. She reports irritable mood and denies feelings of hopelessness and helplessness. She denies any auditory or visual hallucinations. She denies any past psychiatric hospitalizations. She denies any past suicidal ideation or attempts. Current Medications: Active Medications Generic Name Dose Route Start Last Admin Trade Name Freq PRN Reason Stop Dose Admin Famotidine 20 mg 04/29/17 19:03 Pepcid IVP 04/29/17 19:04 ONCE ONE Gabapentin 800 mg 04/29/17 10:00 04/29/17 09:50 Neurontin PO Not Given DAILY NICHOL Heparin Sodium (Porcine) 5,000 units 04/28/17 22:00 04/29/17 13:52 Heparin SC 5,000 units Q8 NICHOL Administration Dextrose/Sodium Chloride 1,000 mls @ 100 mls/hr 04/28/17 19:45 04/29/17 05:49 Dextrose 5%/0.45% Ns 1000 Ml IV Not Given .Q10H NICHOL Cefepime HCl 2 gm in 100 mls @ 100 mls/hr 04/28/17 22:00 04/29/17 09:54 Maxipime Iv 2 Gm Premix IVPB 05/03/17 22:01 100 mls/hr Q12H NICHOL Administration Aztreonam 2 gm/ Sodium 100 mls @ 200 mls/hr 04/29/17 05:30 04/29/17 12:30 Chloride IVPB 200 mls/hr Q8H NICHOL Administration Insulin Aspart 0 unit 04/28/17 19:42 04/29/17 12:22 Novolog SC 4 unit ACHS NICHOL Administration Protocol Insulin Glargine 25 unit 04/29/17 22:00 Lantus SC HS NICHOL Pantoprazole Sodium 40 mg 04/29/17 10:00 04/29/17 12:28 Protonix Inj IVP 40 mg DAILY NICHOL Administration Quetiapine Fumarate 25 mg 04/29/17 10:00 04/29/17 12:22 Seroquel PO Not Given DAILY NICHOL Saccharomyces Boulardii 250 mg 04/28/17 19:45 04/29/17 09:50 Florastor PO Not Given BID NICHOL Zolpidem Tartrate 5 mg 04/28/17 21:22 Ambien PO HS PRN Insomnia Past Psychiatric History - Past Psychiatric History Previous Treatment History: None Pertinent Medical Hx (Current Medical&Sleep Prob, Allergies): Allergies Allergy/AdvReac Type Severity Reaction Status Date / Time Penicillins Allergy PAIN Verified 04/28/17 20:52 Ambien 10/03/15 Humalog 10/03/15 Ibuprofen [Motrin] 600 mg PO Q6 #25 tab 10/03/15 Lantus 10/03/15 Methadone 10/03/15 Methocarbamol [Robaxin] 2 tab PO TID #30 tab 10/03/15 SEROquel 10/03/15 metFORMIN 10/03/15 Famotidine [Pepcid] 20 mg PO Q12 #20 tab 02/25/17 Review of Systems - Review of Systems All systems: reviewed and no additional remarkable complaints except - Psychiatric Psychiatric: Anxiety, Irritability Mental Status Examination - Personal Presentation Personal Presentation: Looks stated age - Affect Affect: Broad - Motor Activity Motor Activity: Psychomotor Agitation - Reliability in Providing Information Reliability in Providing Information: Fair - Speech Speech: Organized - Mood Mood: Anxious - Formal Thought Process Formal Thought Process: No Impairment - Obsessions/Compulsions Obsessions: No Compulsions: No - Cognitive Functions Orientation: Person, Place, Situation, Time Sensorium: Alert Attention/Concentration: Attentive Abstract Thinking: Corinna Estimate of Intelligence: Below average Judgement: Imparied, as evidence by: Poor judgement, Imparied, as evidence by: Lack of insight into illness - Risk Risk: Withdrawal, Diminished functioning - Strength & Assets Inventory Strength & Assets Inventory: Cooperative DSM 5 DX - DSM 5 DSM 5 Diagnosis: Opioid use severe in sustained remission on Maintenance therapy Mood disorder - Recommended/Plan of Treatment Treatment Recommendations and Plan of Treatment: Opioid use severe in sustained remission on Maintenance therapy CBT Psychoeducation Supportive therapy, individual therapy Clonidine when necessary Methadone 200 mg PO Daily (dose verified) Mood disorder CBT Psychoeducation Supportive therapy, group therapy, individual therapy Seroquel 25 mg pO Daily Neurontin 100 mg po TID - Smoking Cessation Smoking Cessation Initiated: No
[2017-04-29] MEDS ORDERED: Methadone 40 mg Tab PO ONE (14:16)
--- NOTE | 2017-04-29 14:45 | VASCLAB ---
STUDY DESCRIPTION: HISTORY: pain in legs, diabetes, neuropathy PRIORS: None. TECHNIQUE: Pulse volume recording waveforms and segmental pressures of bilateral lower extremities at multiple levels were obtained. Ankle Brachial Indices (ABIs) were calculated. Report prepared by DOMINGO Rebollar, RVT RIGHT LOWER EXTREMITY: * Brachial artery: Pressure - 132 mmHg. * High thigh: Pressure - 179 mmHg: Ratio - 1.35: PVR waveform - Pulsatile * Low thigh: Pressure - 189 mmHg: Ratio - 1.42 PVR waveform: Pulsatile * Calf: Pressure - 161 mmHg: Ratio - 1.21 PVR waveform: Pulsatile * Posterior tibial Artery: Pressure - 155 mmHg: Ratio - 1.17 PVR waveform: Pulsatile * Dorsalis pedis Artery: Pressure - 143 mmHg: Ratio - 1.08 PVR waveform: Pulsatile * Great toe: Pressure - mmHg: Ratio - PVR waveform: Ankle brachial index (NAOMI): 1.17 LEFT LOWER EXTREMITY: * Brachial artery: Pressure - 133 mmHg. * High thigh: Pressure - 178 mmHg: Ratio - 1.34: PVR waveform - Pulsatile * Low thigh: Pressure - 184 mmHg: Ratio - 1.38 PVR waveform: Pulsatile * Calf: Pressure - 144 mmHg: Ratio - 1.08 PVR waveform: Pulsatile * Posterior tibial Artery: Pressure - 154 mmHg: Ratio - 1.16 PVR waveform: Pulsatile * Dorsalis pedis Artery: Pressure - 161 mmHg: Ratio - 1.21 PVR waveform: Pulsatile * Great toe: Pressure - mmHg: Ratio - PVR waveform: Ankle brachial index (NAOMI): 1.21 OTHER FINDINGS: Right: Left: IMPRESSION: Right: There was no evidence of hemodynamically significant arterial insufficiency in the right lower extremity. Left: There was no evidence of hemodynamically significant arterial insufficiency in the left lower extremity.
[2017-04-29 14:49] LABS: BARBITURATES, UR NEGATIVE (NEGATIVE); BENZODIAZEPINES, UR NEGATIVE (NEGATIVE)
[2017-04-29 14:52] LABS: OPIATES, UR NEGATIVE (NEGATIVE)
[2017-04-29 14:53] LABS: PHENCYCLIDINE, UR NEGATIVE (NEGATIVE)
--- NOTE | 2017-04-29 15:45 | CP.PCM.PN ---
<Dony Brown - Last Filed: 04/29/17 18:32> Subjective - Date & Time of Evaluation Date of Evaluation: 04/29/17 Time of Evaluation: 11:00 - Subjective Subjective: Patient was seen and examined at bedside. Patient was not in acute distress. Patient stated she needed her methadone today. She stated that she gets 200mg of methadone every morning. I called her methadone clinic and verified this. She had no other complaints when I saw her. She denied chest pain, shortness of breath, fever, dysuria, abdominal pain, headache, nausea, vomiting, diarrhea. Objective - Vital Signs/Intake and Output Vital Signs (last 24 hours): Temp Pulse Resp BP Pulse Ox 97.6 F 83 20 131/89 97 04/29/17 08:00 04/29/17 08:00 04/29/17 08:00 04/29/17 08:00 04/29/17 08:00 Intake and Output: 04/29/17 04/29/17 06:59 18:59 Intake Total 800 Balance 800 - Medications Medications: Current Medications Famotidine (Pepcid) 20 mg IVP ONCE ONE Stop: 04/29/17 19:04 Gabapentin (Neurontin) 800 mg PO DAILY COUNT INCLUDES THE [facility] Last Admin: 04/29/17 09:50 Dose: Not Given Heparin Sodium (Porcine) (Heparin) 5,000 units SC Q8 COUNT INCLUDES THE [facility] Last Admin: 04/29/17 13:52 Dose: 5,000 units Dextrose/Sodium Chloride (Dextrose 5%/0.45% Ns 1000 Ml) 1,000 mls @ 100 mls/hr IV .Q10H COUNT INCLUDES THE [facility] Last Admin: 04/29/17 05:49 Dose: Not Given Cefepime HCl (Maxipime Iv 2 Gm Premix) 2 gm in 100 mls @ 100 mls/hr IVPB Q12H COUNT INCLUDES THE [facility] Stop: 05/03/17 22:01 Last Admin: 04/29/17 09:54 Dose: 100 mls/hr Aztreonam 2 gm/ Sodium (Chloride) 100 mls @ 200 mls/hr IVPB Q8H COUNT INCLUDES THE [facility] Last Admin: 04/29/17 12:30 Dose: 200 mls/hr Insulin Aspart (Novolog) 0 unit SC ACHS COUNT INCLUDES THE [facility] PRN Reason: Protocol Last Admin: 04/29/17 12:22 Dose: 4 unit Insulin Glargine (Lantus) 25 unit SC [facility] Pantoprazole Sodium (Protonix Inj) 40 mg IVP DAILY COUNT INCLUDES THE [facility] Last Admin: 04/29/17 12:28 Dose: 40 mg Quetiapine Fumarate (Seroquel) 25 mg PO DAILY COUNT INCLUDES THE [facility] Last Admin: 04/29/17 12:22 Dose: Not Given Saccharomyces Boulardii (Florastor) 250 mg PO BID COUNT INCLUDES THE [facility] Last Admin: 04/29/17 09:50 Dose: Not Given Zolpidem Tartrate (Ambien) 5 mg PO HS PRN PRN Reason: Insomnia - Labs Labs: PT 12.6 SECONDS (9.7-12.2) H 04/29/17 08:09 INR 1.1 04/29/17 08:09 - Constitutional Appears: Well - Head Exam Head Exam: ATRAUMATIC, NORMAL INSPECTION, NORMOCEPHALIC - Eye Exam Eye Exam: EOMI, Normal appearance, PERRL - ENT Exam ENT Exam: Mucous Membranes Moist, Normal Exam - Neck Exam Neck Exam: Full ROM, Normal Inspection. absent: Lymphadenopathy - Respiratory Exam Respiratory Exam: Clear to Ausculation Bilateral, NORMAL BREATHING PATTERN - Cardiovascular Exam Cardiovascular Exam: REGULAR RHYTHM, +S1, +S2. absent: Murmur - GI/Abdominal Exam GI & Abdominal Exam: Soft, Normal Bowel Sounds. absent: Tenderness - Rectal Exam Rectal Exam: Deferred - Extremities Exam Extremities Exam: Full ROM, Normal Capillary Refill, Normal Inspection. absent : Joint Swelling, Pedal Edema - Neurological Exam Neurological Exam: Alert, Awake, Oriented x3 - Psychiatric Exam Psychiatric exam: Normal Affect, Normal Mood - Skin Skin Exam: Dry, Intact, Normal Color, Warm Assessment and Plan - Assessment and Plan (Free Text) Assessment: Assessment/Plan 1. Complicated Urinary Tract Infection 04/29: urine culture: gram negative rods 04/29: CXR: no active disease * suspicion for emphysematous cystitis * CT scan (04/28/17) :moderate amount of air in urinary bladder, emphysematous cystitis cannot be excluded (further details available on the EMR) * Urology Consult, Dr. Kateryna Rangel, help appreciated * ID consult, Dr. Payne, help appreciated--f/u given questionable PCN allergy * Florastor 250mg PO BID * f/u UA, urine culture. UA 04/28: positive for glucose, ketones, urobilinogen, leukocyte esterase, wbc, rbc, epith cells, bacteria * IV abx: Aztreonam 2 g IV q8h * IV abx: cefepime 2gm IV q12 * Ordered for STD testing given patient is sexually active, no condoms, and prior history of prostitution: gonorrhea, chlamydia * 04/29: AMS, Head CT ordered: 1. No definite acute intracranial abnormality. Acute infarction may be CT occult within first 24 hours. If a focal deficit persists, consider followup CT or MRI for further evaluation. 2. Incidental/ non-acute findings are described above. 2. Abdominal Pain * amylase: normal; lipase: normal * CT scan (04/28/17): enlarged liver with diffuse fatty infiltration and mild intrahepatic biliary ductal dilation, distended gallbladder, appendix 8.8mm ( further details available in the EMR) * Abdominal U/S ordered -RUQ pain; patient has negative James's sign on exam * 04/29: Abd Ultrasound: Cholelithiasis without sonographic evidence of cholecystitis. Mild hepatomegaly with fatty infiltration. No additional abnormality. * General surgery, Dr. Dodd, help appreciated-->for further evaluation 3. Questionable Penicillin Allergy * f/u with PMD, Dr. Parrish, regarding confirmation of patient's allergy * Given: solumedrol 40 mg iv x1, Benadryl 25mg x1, Pepcid 20 mg iv x1 in light of receiving Rocephin in the ED; patient denies pruritus; swelling nor oropharyngeal involvement * Patient reports she has tolerated Amoxicillin/Augmentin in the past 4. Uncontrolled Diabetes * HbA1c, Lipid in AM * Accucheck q6 hours * D51/2 NS 100 cc/ hour * Lantus 25 units q daily (patient took this morning) * Novolog sliding scale (low) subq * Hold metformin on admission * Neurontin 800mg PO daily 5. Hypertension * f/u pharmacy to confirm meds; patient cannot recall medication * monitor vitals * lisinopril 10mg po daily 6. History of Bipolar disorder and PTSD * Patient started on low dose Seroquel 25mg po daily until her actual dose is confirmed in the AM * f/u pharmacy to confirm 7. Leg Pain * CPK is low * Ordered for arterial duplex 8. Prior use of Heroin * Will confirm with [facility] in [place] for Methadone dose * 04/29: Spoke with Pt's cardiovascular lab director Areli at [facility] who verified 200mg methadone dose every morning * No narcotic medications * Has been sober for 4 years; on methadone maintenance 9. Hepatitis C * hx of hep C, 04/29: hepatitic C reactive, GI consulted - Dr Pantoja * not on treatment * HIV 1&2, Hepatitis panel 10. Prophylactic Measure * protonix 40 mg IVQ daily for GI ppx * Heparin 5000 units sc q8h * florastor 250 mg po bid * consistent carb diet * discontinued D51/2 NS 100cc/hr <Da Dewitt - Last Filed: 04/29/17 21:15> Objective - Vital Signs/Intake and Output Vital Signs (last 24 hours): Temp Pulse Resp BP Pulse Ox 98.6 F 79 20 131/91 H 96 04/29/17 16:00 04/29/17 16:00 04/29/17 16:00 04/29/17 16:00 04/29/17 16:00 Intake and Output: 04/29/17 04/30/17 18:59 06:59 Intake Total 800 Balance 800 - Medications Medications: Current Medications Gabapentin (Neurontin) 800 mg PO DAILY COUNT INCLUDES THE [facility] Last Admin: 04/29/17 09:50 Dose: Not Given Heparin Sodium (Porcine) (Heparin) 5,000 units SC Q8 COUNT INCLUDES THE [facility] Last Admin: 04/29/17 13:52 Dose: 5,000 units Cefepime HCl (Maxipime Iv 2 Gm Premix) 2 gm in 100 mls @ 100 mls/hr IVPB Q12H COUNT INCLUDES THE [facility] Stop: 05/03/17 22:01 Last Admin: 04/29/17 09:54 Dose: 100 mls/hr Aztreonam 2 gm/ Sodium (Chloride) 100 mls @ 200 mls/hr IVPB Q8H COUNT INCLUDES THE [facility] Last Admin: 04/29/17 12:30 Dose: 200 mls/hr Insulin Aspart (Novolog) 0 unit SC ACHS COUNT INCLUDES THE [facility] PRN Reason: Protocol Last Admin: 04/29/17 17:12 Dose: 4 unit Insulin Glargine (Lantus) 25 unit SC HS COUNT INCLUDES [facility] Lisinopril (Zestril) 10 mg PO DAILY COUNT INCLUDES THE [facility] Pantoprazole Sodium (Protonix Inj) 40 mg IVP DAILY COUNT INCLUDES THE [facility] Last Admin: 04/29/17 12:28 Dose: 40 mg Quetiapine Fumarate (Seroquel) 25 mg PO DAILY COUNT INCLUDES THE [facility] Last Admin: 04/29/17 12:22 Dose: Not Given Saccharomyces Boulardii (Florastor) 250 mg PO BID COUNT INCLUDES THE [facility] Last Admin: 04/29/17 17:12 Dose: 250 mg Zolpidem Tartrate (Ambien) 5 mg PO HS PRN PRN Reason: Insomnia - Labs Labs: PT 12.6 SECONDS (9.7-12.2) H 04/29/17 08:09 INR 1.1 04/29/17 08:09 Attending/Attestation - Attestation I have personally seen and examined this patient.: Yes I have fully participated in the care of the patient.: Yes I have reviewed all pertinent clinical information, including history, physical exam and plan: Yes Notes (Text): 04/29/17 21:12 Patient was seen and examined at 6 PM 04/29/17 Exam, Assessment and Plan were thoroughly gone over with the Resident. Methadone dose was confirmed with [facility] Hx Hepatitis C +: GI consult placed for recommendations. Currently not on any treatment Awaiting sensitivities for Urine Culture + for Gram Negative Rods Lisinopril 10 mg PO 1x/day was added for HTN considering the Hx DM [address]illip Mitchell consult placed considering the uncontrolled DM 2: HgBA1C at 16.6. Da Dewitt D.O.
[2017-04-29] MEDS ORDERED: (Lantus) Insulin Glargine, Recombinant SC SCH ×2 (22:00→22:49)
[2017-04-30] MEDS: Aztreonam 2 GM in Sodium Chloride 0.9% 100 ML IVPB SCH ×2 (05:19→13:33)
[2017-04-30] MEDS: Methadone 40 mg Tab PO SCH (07:59)
[2017-04-30] MEDS: (Novolog) Insulin Aspart, Recombinant 100 u/ml 10 ml vial SC SCH ×7 (08:00→22:10)
[2017-04-30 08:33] LABS: BASO % 0.9 % (0.0-2.0); EOS # 0.1 K/uL (0.0-0.7); EOS % 2.5 % (0.0-4.0); HEMOGLOBIN 14.6 g/dL (11.0-16.0); LYMPH # 2.2 K/uL (1.0-4.3); LYMPH % 37.7 % (20.0-40.0); MEAN CORPUSCULAR HEMOGLOBIN 30.1 pg (27.0-31.0); MEAN CORPUSCULAR HGB CONC 33.8 g/dL (33.0-37.0); MEAN PLATELET VOLUME 10.3 fL (7.2-11.7); MONO # 0.5 K/uL (0.0-0.8); MONO % 8.6 % (0.0-10.0); NEUT # 2.9 K/uL (1.8-7.0); NEUT % 50.3 % (50.0-75.0); NRBC % 1.4 % (0.0-2.0); RBC 4.86 Mil/uL (3.80-5.20); RED CELL DISTRIBUTION WIDTH 12.6 % (11.5-14.5); WHITE BLOOD COUNT 5.7 K/uL (4.8-10.8)
[2017-04-30 08:46] LABS: ALBUMIN 3.4 g/dL (3.5-5.0)
[2017-04-30 08:49] LABS: AST/SGOT 160 U/L (14-36); GFR AFRICAN-AMERICAN > 60; GFR NON-AFRICAN AMERICAN > 60
[2017-04-30 08:50] LABS: ALT/SGPT 147 U/L (9-52); BLOOD UREA NITROGEN 10 mg/dL (7-17); CALCIUM 8.9 mg/dl (8.6-10.4); GAMMA GLUTAMYL TRANSPEPTIDASE 351 U/L (8-78); LIPASE 148 U/L (23-300); MAGNESIUM 1.7 mg/dL (1.6-2.3)
[2017-04-30 08:51] LABS: HDL CHOLESTEROL 23 mg/dL (30-70)
--- NOTE | 2017-04-30 09:00 | CP.PCM.PN ---
Subjective - Date & Time of Evaluation Date of Evaluation: 04/30/17 Time of Evaluation: 07:00 - Subjective Subjective: General sx progres note for Dr. Andrea Correa, PGY-1 Pt S & E at bedside. Pt tolerating diet, reports abdominal pain resolved, reports normal BM this AM. Objective - Vital Signs/Intake and Output Vital Signs (last 24 hours): Temp Pulse Resp BP Pulse Ox 98.9 F 74 20 149/90 97 04/30/17 07:34 04/30/17 07:34 04/30/17 07:34 04/30/17 07:34 04/30/17 07:34 Intake and Output: 04/30/17 04/30/17 06:59 18:59 Intake Total 280 Balance 280 - Medications Medications: Current Medications Gabapentin (Neurontin) 800 mg PO DAILY [facility] Last Admin: 04/29/17 09:50 Dose: Not Given Heparin Sodium (Porcine) (Heparin) 5,000 units SC Q8 [facility] Last Admin: 04/30/17 05:18 Dose: 5,000 units Cefepime HCl (Maxipime Iv 2 Gm Premix) 2 gm in 100 mls @ 100 mls/hr IVPB Q12H [facility] Stop: 05/03/17 22:01 Last Admin: 04/29/17 22:45 Dose: 100 mls/hr Aztreonam 2 gm/ Sodium (Chloride) 100 mls @ 200 mls/hr IVPB Q8H [facility] Last Admin: 04/30/17 05:19 Dose: 200 mls/hr Insulin Aspart (Novolog) 12 unit SC AC [facility] Insulin Aspart (Novolog) 0 unit SC ACHS [facility] PRN Reason: Protocol Insulin Glargine (Lantus) 34 unit SC HS [facility] Lisinopril (Zestril) 10 mg PO DAILY [facility] Methadone HCl (Methadose) 200 mg PO DAILY@0800 [facility] Last Admin: 04/30/17 07:59 Dose: 200 mg Pantoprazole Sodium (Protonix Inj) 40 mg IVP DAILY [facility] Last Admin: 04/30/17 08:06 Dose: 40 mg Quetiapine Fumarate (Seroquel) 100 mg PO BID [facility] Saccharomyces Boulardii (Florastor) 250 mg PO BID [facility] Last Admin: 04/29/17 17:12 Dose: 250 mg Zolpidem Tartrate (Ambien) 5 mg PO HS PRN PRN Reason: Insomnia Last Admin: 04/29/17 23:50 Dose: 5 mg - Labs Labs: 04/30/17 08:08 04/30/17 08:08 PT 12.6 SECONDS (9.7-12.2) H 04/29/17 08:09 INR 1.1 04/29/17 08:09 - Constitutional Appears: Non-toxic, No Acute Distress - Head Exam Head Exam: ATRAUMATIC, NORMAL INSPECTION, NORMOCEPHALIC - Eye Exam Eye Exam: EOMI, Normal appearance - ENT Exam ENT Exam: Mucous Membranes Moist, Normal Exam - Neck Exam Neck Exam: Full ROM, Normal Inspection - Respiratory Exam Respiratory Exam: Clear to Ausculation Bilateral, NORMAL BREATHING PATTERN - Cardiovascular Exam Cardiovascular Exam: REGULAR RHYTHM, +S1, +S2 - GI/Abdominal Exam GI & Abdominal Exam: Soft, Normal Bowel Sounds. absent: Distended, Firm, Guarding, Rigid, Tenderness - Extremities Exam Extremities Exam: Normal Inspection. absent: Tenderness - Neurological Exam Neurological Exam: Alert, Awake, CN II-XII Intact - Psychiatric Exam Psychiatric exam: Normal Affect, Normal Mood - Skin Skin Exam: Dry, Intact, Normal Color, Warm Assessment and Plan - Assessment and Plan (Free Text) Assessment: 46F w/abdominal pain- resolving Plan: -No surgical intervention at this time -Please re-consult as needed Will SACHIN attending Madeline, PGY-1
[2017-04-30 09:09] LABS: LDL CHOLESTEROL 73 mg/dL (0-129)
--- NOTE | 2017-04-30 09:26 | CP.PCM.PN ---
<StephanieDony R - Last Filed: 04/30/17 19:08> Subjective - Date & Time of Evaluation Date of Evaluation: 04/30/17 Time of Evaluation: 07:45 - Subjective Subjective: Patient was seen and examined at bedside. Patient stated she was not feeling well. She says usually gets her Methadone dose (200mg) in the morning (this was verified yesterday by calling her methadone clinic). She stated that she was having left leg pain in her thigh to her foot. She admits to abdominal pain in her left lower quadrant. She said she's been eating her meals. She denied chest pain, fever, nausea, vomiting, fever, chills. Objective - Vital Signs/Intake and Output Vital Signs (last 24 hours): Temp Pulse Resp BP Pulse Ox 98.9 F 74 20 149/90 97 04/30/17 07:34 04/30/17 07:34 04/30/17 07:34 04/30/17 07:34 04/30/17 07:34 Intake and Output: 04/30/17 04/30/17 06:59 18:59 Intake Total 280 Balance 280 - Medications Medications: Current Medications Gabapentin (Neurontin) 800 mg PO DAILY [facility] Last Admin: 04/29/17 09:50 Dose: Not Given Heparin Sodium (Porcine) (Heparin) 5,000 units SC Q8 [facility] Last Admin: 04/30/17 05:18 Dose: 5,000 units Cefepime HCl (Maxipime Iv 2 Gm Premix) 2 gm in 100 mls @ 100 mls/hr IVPB Q12H [facility] Stop: 05/03/17 22:01 Last Admin: 04/29/17 22:45 Dose: 100 mls/hr Aztreonam 2 gm/ Sodium (Chloride) 100 mls @ 200 mls/hr IVPB Q8H [facility] Last Admin: 04/30/17 05:19 Dose: 200 mls/hr Insulin Aspart (Novolog) 12 unit SC AC [facility] Insulin Aspart (Novolog) 0 unit SC ACHS [facility] PRN Reason: Protocol Insulin Glargine (Lantus) 34 unit SC HS [facility] Lisinopril (Zestril) 10 mg PO DAILY [facility] Methadone HCl (Methadose) 200 mg PO DAILY@0800 [facility] Last Admin: 04/30/17 07:59 Dose: 200 mg Pantoprazole Sodium (Protonix Inj) 40 mg IVP DAILY [facility] Last Admin: 04/30/17 08:06 Dose: 40 mg Quetiapine Fumarate (Seroquel) 100 mg PO BID [facility] Saccharomyces Boulardii (Florastor) 250 mg PO BID [facility] Last Admin: 04/29/17 17:12 Dose: 250 mg Zolpidem Tartrate (Ambien) 5 mg PO HS PRN PRN Reason: Insomnia Last Admin: 04/29/17 23:50 Dose: 5 mg - Labs Labs: 04/30/17 08:08 04/30/17 08:08 PT 12.6 SECONDS (9.7-12.2) H 04/29/17 08:09 INR 1.1 04/29/17 08:09 - Constitutional Appears: Non-toxic, No Acute Distress, Agitated - Head Exam Head Exam: ATRAUMATIC, NORMAL INSPECTION, NORMOCEPHALIC - Eye Exam Eye Exam: EOMI, Normal appearance, PERRL - ENT Exam ENT Exam: Mucous Membranes Moist, Normal Exam - Neck Exam Neck Exam: Full ROM, Normal Inspection. absent: Lymphadenopathy - Respiratory Exam Respiratory Exam: Clear to Ausculation Bilateral, NORMAL BREATHING PATTERN - Cardiovascular Exam Cardiovascular Exam: REGULAR RHYTHM, +S1, +S2. absent: Murmur - GI/Abdominal Exam GI & Abdominal Exam: Tenderness - Rectal Exam Rectal Exam: Deferred - Extremities Exam Extremities Exam: Full ROM, Normal Capillary Refill, Normal Inspection, Tenderness. absent: Joint Swelling, Pedal Edema Additional comments: tenderness in left lower extremity from thigh to foot - Neurological Exam Neurological Exam: Alert, Awake, Oriented x3 - Psychiatric Exam Psychiatric exam: Normal Affect, Normal Mood - Skin Skin Exam: Dry, Intact, Normal Color, Warm Assessment and Plan - Assessment and Plan (Free Text) Assessment: 1. Complicated Urinary Tract Infection 04/30: started tigecycline 50mg iv q12 as it is sensitive for e coli in urine 04/30: stopped cefepime as it is resistant for e coli in urine 04/28: urine culture -> e coli 04/28: blood culture x2 -> gram negative rods 04/28: CXR: no active disease * suspicion for emphysematous cystitis * CT scan (04/28/17): moderate amount of air in urinary bladder, emphysematous cystitis cannot be excluded (further details available on the EMR) * Urology Consult, Dr. Kateryna Rangel, help appreciated * ID consult, Dr. Payne, help appreciated--f/u given questionable PCN allergy * 04/28: UA -> positive for glucose, ketones, urobilinogen, leukocyte esterase, wbc, rbc, epith cells, bacteria * IV abx: Aztreonam 2 g IV q8h * IV abx: cefepime 2gm IV q12 * Ordered for STD testing given patient is sexually active, no condoms, and prior history of prostitution: gonorrhea, chlamydia * 04/29: AMS, Head CT ordered: 1. No definite acute intracranial abnormality. Acute infarction may be CT occult within first 24 hours. If a focal deficit persists, consider followup CT or MRI for further evaluation. 2. Incidental/ non-acute findings are described above. * Florastor 250mg PO BID 2. Abdominal Pain * amylase: normal; lipase: normal * CT scan (04/28/17): enlarged liver with diffuse fatty infiltration and mild intrahepatic biliary ductal dilation, distended gallbladder, appendix 8.8mm ( further details available in the EMR) * Abdominal U/S ordered -RUQ pain; patient has negative James's sign on exam * 04/29: Abd Ultrasound: Cholelithiasis without sonographic evidence of cholecystitis. Mild hepatomegaly with fatty infiltration. No additional abnormality. * General surgery, Dr. Dodd, help appreciated-->for further evaluation 3. Questionable Penicillin Allergy * f/u with PMD, Dr. Parrish, regarding confirmation of patient's allergy * Given: solumedrol 40 mg iv x1, Benadryl 25mg x1, Pepcid 20 mg iv x1 in light of receiving Rocephin in the ED; patient denies pruritus; swelling nor oropharyngeal involvement * Patient reports she has tolerated Amoxicillin/Augmentin in the past 4. Uncontrolled Diabetes * HbA1c 16.6 * 04/30: Triglycerides 158, Cholesterol 119, LDL pending, HDL 23 * Accucheck q6 hours * discontinued: D51/2 NS 100 cc/ hour * Lantus 25 units q daily (patient took this morning) * Novolog sliding scale (low) subq * Hold metformin on admission * Neurontin 800mg PO daily 5. Hypertension * f/u pharmacy to confirm meds; patient cannot recall medication * monitor vitals * lisinopril 10mg po daily 6. History of Bipolar disorder and PTSD * Patient started on low dose Seroquel 25mg po daily until her actual dose is confirmed in the AM * f/u pharmacy to confirm * psychiatry following, per Dr oRdriguez: Mood disorder CBT Psychoeducation Supportive therapy, group therapy, individual therapy Seroquel 25 mg pO Daily Neurontin 100 mg po TID 7. Leg Pain * CPK is low * 04/29: Lower extremity ultrasound -> No evidence of hemodynamically significant arterial insufficiency in lower extremities b/l * 04/30: venous duplex scan ordered, f/u 8. 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 Hepatitis C 04/30: Per Dr Pantoja: "Obtain autoimmune panel. No planned GI intervention for chronic HCV, she should be considered for outpatient elective treatment following resolution of acute symptoms. Will sign off case, please reconsult as necessary, thank you. 04/30: f/u mitochondrial antibodies and smooth muscle antibodies * hx of hep C, 04/29: hepatitic C reactive, GI consulted - Dr Pantoja * not on treatment * HIV 1&2, Hepatitis panel * 10. Elevated LFTs 04/30: Likely 2/2 Hep C or likely 2/2 Aztreonam. Trend LFTs going forward. 10. Prophylactic Measure * protonix 40 mg IVQ daily for GI ppx * Heparin 5000 units sc q8h * florastor 250 mg po bid * consistent carb diet * discontinued D51/2 NS 100cc/hr <Da Dewitt - Last Filed: 04/30/17 20:48> Objective - Vital Signs/Intake and Output Vital Signs (last 24 hours): Temp Pulse Resp BP Pulse Ox 98.7 F 95 H 20 127/93 H 97 04/30/17 15:00 04/30/17 15:00 04/30/17 15:00 04/30/17 15:00 04/30/17 15:00 - Medications Medications: Current Medications Gabapentin (Neurontin) 800 mg PO DAILY [facility] Last Admin: 04/30/17 12:14 Dose: 800 mg Heparin Sodium (Porcine) (Heparin) 5,000 units SC Q8 [facility] Last Admin: 04/30/17 13:34 Dose: 5,000 units Tigecycline 50 mg/ Sodium (Chloride) 100 mls @ 100 mls/hr IVPB Q12H [facility] Insulin Aspart (Novolog) 0 unit SC ACHS [facility] PRN Reason: Protocol Last Admin: 04/30/17 17:29 Dose: 3 unit Insulin Aspart (Novolog) 20 unit SC AC [facility] Last Admin: 04/30/17 17:31 Dose: 20 unit Insulin Glargine (Lantus) 40 unit SC HS [facility] Lisinopril (Zestril) 10 mg PO DAILY [facility] Last Admin: 04/30/17 12:22 Dose: 10 mg Methadone HCl (Methadose) 200 mg PO DAILY@0800 [facility] Last Admin: 04/30/17 07:59 Dose: 200 mg Pantoprazole Sodium (Protonix Inj) 40 mg IVP DAILY [facility] Last Admin: 04/30/17 12:17 Dose: Not Given Quetiapine Fumarate (Seroquel) 100 mg PO BID [facility] Last Admin: 04/30/17 12:23 Dose: 100 mg Saccharomyces Boulardii (Florastor) 250 mg PO BID [facility] Last Admin: 04/30/17 17:32 Dose: 250 mg Zolpidem Tartrate (Ambien) 5 mg PO HS PRN PRN Reason: Insomnia Last Admin: 04/29/17 23:50 Dose: 5 mg - Labs Labs: 04/30/17 08:08 04/30/17 08:08 PT 12.6 SECONDS (9.7-12.2) H 04/29/17 08:09 INR 1.1 04/29/17 08:09 Attending/Attestation - Attestation I have personally seen and examined this patient.: Yes I have fully participated in the care of the patient.: Yes I have reviewed all pertinent clinical information, including history, physical exam and plan: Yes Notes (Text): 04/30/17 20:47 Patient was seen and examined at 7 PM Exam, Assessment and Plan were thoroughly gone over with the Resident. Da Dewitt D.O.
--- NOTE | 2017-04-30 11:24 | CP.PCM.CON ---
<Mima Bryant - Last Filed: 04/30/17 11:42> History of Present Illness - History of Present Illness History of Present Illness: GI Fellow PGY4 Consult Note This is a 46yF with a pmhx of uncontrolled DM, HTN, Hep C, IVDA. Pt pw with complaints of lower abdominal pain, nausea, vomiting for 2 days. Pt is currently being treated for emphysematous cysitis and urine cultures gram negative rods on IV antibiotic Aztreonam and Rocephin. Pt reports she was diagnosed with Hep C 5 yrs ago however never sought any further treatment. Pt reports she abused heroin/cocain for 6yrs at which time shared needles but has not used drugs in 4yrs. Pt denies any alcohol abuse history to me but per records has a hx of drinking hard liquor for years. Pt reports she has lost 50 pounds over 3months due to poor appetite, denies dysphagia. Pt at this time appears uncomfortable and complaining of suprapubic pain and pain in her legs and lower back. Pt reports subjective fevers, chills, N/V. GI was consulted for history of Hepatitis C with a positive Hep C antibody. Pt denies any prior EGD or colonoscopy. ROS: A 12pt ROS was obtained and was negative except as mentioned above. PmHx: As stated in HPI PsHx: back/abdominal abscess SHx: hx of heroin/cocaine abuse for 6yrs, drug free for 4 yrs on methadone now, denies alcohol use to me but per H/P has a hx of drinking hard liquor FHx: hx denies CA, liver disease, positive for DM Review of Systems - Review of Systems Review of Systems: A 12pt ROS was obtained and was negative except as mentioned above. Past Patient History - Past Social History Smoking Status: Light Smoker < 10 Cigarettes Daily - CARDIAC Hx Hypertension: Yes - PULMONARY Hx Respiratory Disorders: No - NEUROLOGICAL Hx Neurological Disorder: No - HEENT Hx HEENT Problems: No - RENAL Hx Chronic Kidney Disease: No - ENDOCRINE/METABOLIC Hx Diabetes Mellitus Type 1: Yes - HEMATOLOGICAL/ONCOLOGICAL Hx Blood Disorders: Yes Hx Hepatitis C: Yes - INTEGUMENTARY Hx Dermatological Problems: No - MUSCULOSKELETAL/RHEUMATOLOGICAL Hx Musculoskeletal Disorders: No Hx Falls: No - GASTROINTESTINAL Hx Gastrointestinal Disorders: No - GENITOURINARY/GYNECOLOGICAL Hx Genitourinary Disorders: No - PSYCHIATRIC Hx Anxiety: Yes Hx Bipolar Disorder: Yes Hx Post Traumatic Stress Disorder: Yes Hx Substance Use: Yes (Methadone) - SURGICAL HISTORY Hx Surgeries: No - ANESTHESIA Hx Anesthesia: No Meds Allergies/Adverse Reactions: Allergies Allergy/AdvReac Type Severity Reaction Status Date / Time Penicillins Allergy PAIN Verified 04/28/17 20:52 - Medications Medications: Current Medications Gabapentin (Neurontin) 800 mg PO DAILY [facility] Last Admin: 04/29/17 09:50 Dose: Not Given Heparin Sodium (Porcine) (Heparin) 5,000 units SC Q8 [facility] Last Admin: 04/30/17 05:18 Dose: 5,000 units Cefepime HCl (Maxipime Iv 2 Gm Premix) 2 gm in 100 mls @ 100 mls/hr IVPB Q12H [facility] Stop: 05/03/17 22:01 Last Admin: 04/29/17 22:45 Dose: 100 mls/hr Aztreonam 2 gm/ Sodium (Chloride) 100 mls @ 200 mls/hr IVPB Q8H [facility] Last Admin: 04/30/17 05:19 Dose: 200 mls/hr Insulin Aspart (Novolog) 12 unit SC AC [facility] Insulin Aspart (Novolog) 0 unit SC ACHS [facility] PRN Reason: Protocol Insulin Glargine (Lantus) 34 unit SC HS [facility] Lisinopril (Zestril) 10 mg PO DAILY [facility] Methadone HCl (Methadose) 200 mg PO DAILY@0800 [facility] Last Admin: 04/30/17 07:59 Dose: 200 mg Pantoprazole Sodium (Protonix Inj) 40 mg IVP DAILY [facility] Last Admin: 04/30/17 08:06 Dose: 40 mg Quetiapine Fumarate (Seroquel) 100 mg PO BID [facility] Saccharomyces Boulardii (Florastor) 250 mg PO BID [facility] Last Admin: 04/29/17 17:12 Dose: 250 mg Zolpidem Tartrate (Ambien) 5 mg PO HS PRN PRN Reason: Insomnia Last Admin: 04/29/17 23:50 Dose: 5 mg Physical Exam - Constitutional Appears: Non-toxic, In Acute Distress, Unkempt - Head Exam Head Exam: ATRAUMATIC, NORMAL INSPECTION, NORMOCEPHALIC - Eye Exam Eye Exam: EOMI, Normal appearance, Periorbital tenderness, PERRL Pupil Exam: PERRL - ENT Exam ENT Exam: Mucous Membranes Moist, Normal Exam, Normal External Ear Exam - Neck Exam Neck exam: Positive for: Full Rom, Normal Inspection - Respiratory Exam Respiratory Exam: Clear to Auscultation Bilateral, NORMAL BREATHING PATTERN - Cardiovascular Exam Cardiovascular Exam: REGULAR RHYTHM, RRR, +S1, +S2 - GI/Abdominal Exam GI & Abdominal Exam: Normal Bowel Sounds, Soft, Tenderness Additional comments: TTP Suprapubic - Rectal Exam Rectal Exam: Deferred - Extremities Exam Extremities exam: Positive for: normal inspection, tenderness. Negative for: pedal edema - Back Exam Back exam: NORMAL INSPECTION - Neurological Exam Neurological exam: Alert, Oriented x3 - Psychiatric Exam Additional comments: Appears in pain and uncomfortable - Skin Skin Exam: Dry, Intact, Normal Color, Warm Results - Vital Signs Recent Vital Signs: Last Vital Signs Temp 98.9 F 04/30/17 07:34 Pulse 74 04/30/17 07:34 Resp 20 04/30/17 07:34 BP 149/90 04/30/17 07:34 Pulse Ox 97 04/30/17 07:34 - Labs Result Diagrams: 04/30/17 08:08 04/30/17 08:08 Labs: Laboratory Results - last 24 hr 04/29/17 04/29/17 04/29/17 08:09 11:18 14:28 WBC RBC Hgb Hct MCV MCH MCHC RDW Plt Count MPV Neut % (Auto) Lymph % (Auto) Wetzel % (Auto) Eos % (Auto) Baso % (Auto) Neut # Lymph # Wetzel # Eos # Baso # Differential Comment Sodium Potassium Chloride Carbon Dioxide Anion Gap BUN Creatinine Est GFR ( Amer) Est GFR (Non-Af Amer) POC Glucose (mg/dL) 319 H Random Glucose Hemoglobin A1c Calcium Phosphorus Magnesium Total Bilirubin GGT AST ALT Alkaline Phosphatase Total Protein Albumin Globulin Albumin/Globulin Ratio Triglycerides Cholesterol LDL Cholesterol Direct HDL Cholesterol Lipase TSH 3rd Generation Urine Opiates Screen Negative Urine Methadone Screen Positive Ur Barbiturates Screen Negative Ur Phencyclidine Scrn Negative Ur Amphetamines Screen Negative U Benzodiazepines Scrn Negative U Oth Cocaine Metabols Negative U Cannabinoids Screen Negative Hepatitis C Antibody Reactive H 04/29/17 04/29/17 04/30/17 16:55 21:33 07:40 WBC RBC Hgb Hct MCV MCH MCHC RDW Plt Count MPV Neut % (Auto) Lymph % (Auto) Wetzel % (Auto) Eos % (Auto) Baso % (Auto) Neut # Lymph # Wetzel # Eos # Baso # Differential Comment Sodium Potassium Chloride Carbon Dioxide Anion Gap BUN Creatinine Est GFR ( Amer) Est GFR (Non-Af Amer) POC Glucose (mg/dL) 347 H 357 H 302 H Random Glucose Hemoglobin A1c Calcium Phosphorus Magnesium Total Bilirubin GGT AST ALT Alkaline Phosphatase Total Protein Albumin Globulin Albumin/Globulin Ratio Triglycerides Cholesterol LDL Cholesterol Direct HDL Cholesterol Lipase TSH 3rd Generation Urine Opiates Screen Urine Methadone Screen Ur Barbiturates Screen Ur Phencyclidine Scrn Ur Amphetamines Screen U Benzodiazepines Scrn U Oth Cocaine Metabols U Cannabinoids Screen Hepatitis C Antibody 04/30/17 04/30/17 04/30/17 08:08 08:08 08:08 WBC 5.7 RBC 4.86 Hgb 14.6 Hct 43.2 MCV 89.0 MCH 30.1 MCHC 33.8 RDW 12.6 Plt Count 116 L MPV 10.3 Neut % (Auto) 50.3 Lymph % (Auto) 37.7 Wetzel % (Auto) 8.6 Eos % (Auto) 2.5 Baso % (Auto) 0.9 Neut # 2.9 Lymph # 2.2 Wetzel # 0.5 Eos # 0.1 Baso # 0.0 Differential Comment Sodium 137 Potassium 3.7 Chloride 102 Carbon Dioxide 23 Anion Gap 16 BUN 10 Creatinine 0.5 L Est GFR ( Amer) > 60 Est GFR (Non-Af Amer) > 60 POC Glucose (mg/dL) Random Glucose 331 H Hemoglobin A1c 16.3 H Calcium 8.9 Phosphorus 3.6 Magnesium 1.7 Total Bilirubin 0.9 GGT 351 H AST 160 H D ALT 147 H Alkaline Phosphatase 142 H Total Protein 6.6 Albumin 3.4 L Globulin 3.2 Albumin/Globulin Ratio 1.0 Triglycerides 158 H Cholesterol 119 LDL Cholesterol Direct 73 HDL Cholesterol 23 L Lipase 148 TSH 3rd Generation 0.96 Urine Opiates Screen Urine Methadone Screen Ur Barbiturates Screen Ur Phencyclidine Scrn Ur Amphetamines Screen U Benzodiazepines Scrn U Oth Cocaine Metabols U Cannabinoids Screen Hepatitis C Antibody Assessment & Plan - Assessment and Plan (Free Text) Assessment: This is a 46yF with hx of IVDA, Hep C, uncontrolled DM, HTN pw complaints of lower abdominal pain found to have complicated UTI on IV antibiotics. 1. Hepatitis C 2. Complicated UTI-emphysematous cystitis 3. Uncontrolled DM 4. Hx of IVDA 5. Weight loss Plan: -Pt is not in decompensated liver failure and Abdominal US/CT shows enlarged fatty liver with no signs of lesions concerning for HCC -Pt will need outpt followup for further workup of her Hepatitis C including viral load/genotype for treatment options only after pt displays medical compliance and followup at the GI clinic. -Pt will need further outpt workup for weight loss once medically stable -Continue pepcid and pain control as needed by primary team -Continue abx for Complicated UTI -Discussed with patient the importance of followup at GI clinic for further Hep C workup Thank you for this consultation. Please call with any questions/concerns. <Tyron Pantoja Y - Last Filed: 04/30/17 12:25> Meds - Medications Medications: Current Medications Gabapentin (Neurontin) 800 mg PO DAILY [facility] Last Admin: 04/30/17 12:14 Dose: 800 mg Heparin Sodium (Porcine) (Heparin) 5,000 units SC Q8 [facility] Last Admin: 04/30/17 05:18 Dose: 5,000 units Cefepime HCl (Maxipime Iv 2 Gm Premix) 2 gm in 100 mls @ 100 mls/hr IVPB Q12H [facility] Stop: 05/03/17 22:01 Last Admin: 04/30/17 12:11 Dose: 100 mls/hr Aztreonam 2 gm/ Sodium (Chloride) 100 mls @ 200 mls/hr IVPB Q8H [facility] Last Admin: 04/30/17 05:19 Dose: 200 mls/hr Insulin Aspart (Novolog) 12 unit SC AC [facility] Last Admin: 04/30/17 12:15 Dose: 12 unit Insulin Aspart (Novolog) 0 unit SC ACHS [facility] PRN Reason: Protocol Last Admin: 04/30/17 08:00 Dose: 3 unit Insulin Glargine (Lantus) 34 unit SC HS [facility] Lisinopril (Zestril) 10 mg PO DAILY [facility] Methadone HCl (Methadose) 200 mg PO DAILY@0800 [facility] Last Admin: 04/30/17 07:59 Dose: 200 mg Pantoprazole Sodium (Protonix Inj) 40 mg IVP DAILY [facility] Last Admin: 04/30/17 12:17 Dose: Not Given Quetiapine Fumarate (Seroquel) 100 mg PO BID [facility] Saccharomyces Boulardii (Florastor) 250 mg PO BID [facility] Last Admin: 04/30/17 12:13 Dose: 250 mg Zolpidem Tartrate (Ambien) 5 mg PO HS PRN PRN Reason: Insomnia Last Admin: 04/29/17 23:50 Dose: 5 mg Results - Vital Signs Recent Vital Signs: Last Vital Signs Temp 98.9 F 04/30/17 07:34 Pulse 74 04/30/17 07:34 Resp 20 04/30/17 07:34 BP 149/90 04/30/17 07:34 Pulse Ox 97 04/30/17 07:34 - Labs Result Diagrams: 04/30/17 08:08 04/30/17 08:08 Labs: Laboratory Results - last 24 hr 04/29/17 04/29/17 04/29/17 11:18 14:28 16:55 WBC RBC Hgb Hct MCV MCH MCHC RDW Plt Count MPV Neut % (Auto) Lymph % (Auto) Wetzel % (Auto) Eos % (Auto) Baso % (Auto) Neut # Lymph # Wetzel # Eos # Baso # Differential Comment Sodium Potassium Chloride Carbon Dioxide Anion Gap BUN Creatinine Est GFR ( Amer) Est GFR (Non-Af Amer) POC Glucose (mg/dL) 319 H 347 H Random Glucose Hemoglobin A1c Calcium Phosphorus Magnesium Total Bilirubin GGT AST ALT Alkaline Phosphatase Total Protein Albumin Globulin Albumin/Globulin Ratio Triglycerides Cholesterol LDL Cholesterol Direct HDL Cholesterol Lipase TSH 3rd Generation Urine Opiates Screen Negative Urine Methadone Screen Positive Ur Barbiturates Screen Negative Ur Phencyclidine Scrn Negative Ur Amphetamines Screen Negative U Benzodiazepines Scrn Negative U Oth Cocaine Metabols Negative U Cannabinoids Screen Negative 04/29/17 04/30/17 04/30/17 21:33 07:40 08:08 WBC 5.7 RBC 4.86 Hgb 14.6 Hct 43.2 MCV 89.0 MCH 30.1 MCHC 33.8 RDW 12.6 Plt Count 116 L MPV 10.3 Neut % (Auto) 50.3 Lymph % (Auto) 37.7 Wetzel % (Auto) 8.6 Eos % (Auto) 2.5 Baso % (Auto) 0.9 Neut # 2.9 Lymph # 2.2 Wetzel # 0.5 Eos # 0.1 Baso # 0.0 Differential Comment Sodium Potassium Chloride Carbon Dioxide Anion Gap BUN Creatinine Est GFR ( Amer) Est GFR (Non-Af Amer) POC Glucose (mg/dL) 357 H 302 H Random Glucose Hemoglobin A1c Calcium Phosphorus Magnesium Total Bilirubin GGT AST ALT Alkaline Phosphatase Total Protein Albumin Globulin Albumin/Globulin Ratio Triglycerides Cholesterol LDL Cholesterol Direct HDL Cholesterol Lipase TSH 3rd Generation Urine Opiates Screen Urine Methadone Screen Ur Barbiturates Screen Ur Phencyclidine Scrn Ur Amphetamines Screen U Benzodiazepines Scrn U Oth Cocaine Metabols U Cannabinoids Screen 04/30/17 04/30/17 04/30/17 08:08 08:08 11:44 WBC RBC Hgb Hct MCV MCH MCHC RDW Plt Count MPV Neut % (Auto) Lymph % (Auto) Wetzel % (Auto) Eos % (Auto) Baso % (Auto) Neut # Lymph # Wetzel # Eos # Baso # Differential Comment Sodium 137 Potassium 3.7 Chloride 102 Carbon Dioxide 23 Anion Gap 16 BUN 10 Creatinine 0.5 L Est GFR ( Amer) > 60 Est GFR (Non-Af Amer) > 60 POC Glucose (mg/dL) 297 H Random Glucose 331 H Hemoglobin A1c 16.3 H Calcium 8.9 Phosphorus 3.6 Magnesium 1.7 Total Bilirubin 0.9 GGT 351 H AST 160 H D ALT 147 H Alkaline Phosphatase 142 H Total Protein 6.6 Albumin 3.4 L Globulin 3.2 Albumin/Globulin Ratio 1.0 Triglycerides 158 H Cholesterol 119 LDL Cholesterol Direct 73 HDL Cholesterol 23 L Lipase 148 TSH 3rd Generation 0.96 Urine Opiates Screen Urine Methadone Screen Ur Barbiturates Screen Ur Phencyclidine Scrn Ur Amphetamines Screen U Benzodiazepines Scrn U Oth Cocaine Metabols U Cannabinoids Screen Attending/Attestation - Attestation I have personally seen and examined this patient.: Yes I have fully participated in the care of the patient.: Yes I have reviewed all pertinent clinical information: Yes Notes (Text): 04/30/17 12:18 I have seen and examined patient with GI fellow. Agree with above documentation with the following additions. In brief, this is a 46 year old female with history of DM, HTN, chronic HCV (history of IVDA, diagnosed 5 years ago, treatment naive) who presents to hospital with complaint of suprapubic abdominal pain, nausea, and vomiting for the past 2 days. She was diagnosed with acute emphysematous cystitis and currently undergoing treatment. GI called for further management of chronic HCV. Currently her main complaint is suprapubic pain along with lower extremity discomfort. She denies ongoing drug or ETOH use. She denies jaundice, pruritis, rectal bleeding, or change in bowel habits. She does report significant weight loss over the past few months due to poor appetite. No prior endoscopic evaluation. DM / HTN Chronic HCV, treatment naive Emphysematous cystitis - Diet as tolerated - Continue with antibiotic therapy as per medical team - Abdominal US reviewed by me showing no focal hepatic lesions - LFTs stable, continue to monitor - Obtain autoimmune panel - No planned GI intervention for chronic HCV, she should be considered for outpatient elective treatment following resolution of acute symptoms. Will sign off case, please reconsult as necessary, thank you.
[2017-04-30] MEDS: Cefepime IV 2 gm in Dextrose 2 GM/100 ML BAG IVPB SCH (12:11)
[2017-04-30] MEDS: Saccharomyces Boulardi 250 mg Cap PO SCH ×2 (12:13→17:32)
--- NOTE | 2017-04-30 12:56 | US ---
PROCEDURE: Ultrasound of the Bladder HISTORY: retention COMPARISON: None available. TECHNIQUE: Sonographic evaluation of the bladder was performed. FINDINGS: Unremarkable without wall thickening or intraluminal debris. No calculus or gross mass lesion. No free fluid in pelvis. Prevoid Volume: 310 cc. Post void residual: 53 cc. Bilateral ureteral jets noted Uterus partly visualized and anteverted. IMPRESSION: Bladder with 53 cc postvoid residual urine volume
--- NOTE | 2017-04-30 21:07 | CP.PCM.CON ---
History of Present Illness - History of Present Illness History of Present Illness: THis patient is a 46 F with PMH of DM, HTN, Hep C, heroin/cocain/alcohol abuser 4 years ago who presents to the ED with bilateral leg and abdominal pain that has been getting worse since Saturday. Patient also has urinary frequency and burning that his been on and off for 3 months and has never been treated. Patient describes her urine as beer colored and foamy. Patient describes the abdominal pain to be in the LLQ and RUQ and has had nausea and two episodes of vomiting over the weekend. Patient says her legs feel like they are burning. Patient denies chest pain now although she says she had some when she first came to the ED. She denies headache, palpitations, shortness of breath, constipation, or diarrhea.She is on methadone she says PMH:DM, HTN, Hep C, heroin/cocain/alcohol abuser 4 years ago Psurgical: back abscess, abdominal abscess many years ago Family hx: Mom and Aunt-DM Socialhx: tobacco: 5 cigarettes per day for about 30 years EtOH: sober for 4 years, used to drink one bottle of hard liquor per day Drugs: sober for 4 years, used to inject heroin, snort cocaine goes to [facility] Home Meds:Neurontin 800mg lantus 25 u daily humalog with meals metformin 500 mg daily ambien 10 mg HS htn medication seroquel constipation medication P Review of Systems - Constitutional Constitutional: absent: As Per HPI, Anorexia, Chills, Daytime Sleepiness, Excessive Sweating, Fatigue, Fever, Frequent Falls, Headache, Increased Appetite , Lethargy, Malaise, Night Sweats, Snoring, Sleep Apnea, Weight Gain, Weight Loss, Weakness, Other - EENT Eyes: absent: As Per HPI, Blind Spots, Blurred Vision, Change in Vision, Decreased Night Vision, Diplopia, Discharge, Dry Eye, Exophthalmos, Floaters, Irritation, Itchy Eyes, Loss of Peripheral Vision, Pain, Photophobia, Requires Corrective Lenses, Sees Flashes, Spots in Vision, Tunnel Vision, Other Visual Disturbances, Loss of Vision, Other Ears: absent: As Per HPI, Decreased Hearing, Ear Discharge, Ear Pain, Tinnitus, Abnormal Hearing, Disequilibrium, Dizziness, Other Nose/Mouth/Throat: absent: As Per HPI, Epistaxis, Nasal Congestion, Nasal Discharge, Nasal Obstruction, Nasal Trauma, Nose Pain, Post Nasal Drip, Sinus Pain, Sinus Pressure, Bleeding Gums, Change in Voice, Dental Pain, Dry Mouth, Dysphagia, Halitosis, Hoarsness, Lip Swelling, Mouth Lesions, Mouth Pain, Odynophagia, Sore Throat, Throat Swelling, Tongue Swelling, Facial Pain, Neck Pain, Neck Mass, Other - Cardiovascular Cardiovascular: absent: As Per HPI, Acrocyanosis, Chest Pain, Chest Pain at Rest , Chest Pain with Activity, Claudication, Diaphoresis, Dyspnea, Dyspnea on Exertion, Edema, Irregular Heart Rhythm, Pain Radiating to Arm/Neck/Jaw, Leg Edema, Leg Ulcers, Lightheadedness, Orthopnea, Palpitations, Paroxysmal Nocturnal Dyspnea, Pedal Edema, Radiating Pain, Rapid Heart Rate, Slow Heart Rate, Syncope, Other - Respiratory Respiratory: absent: As Per HPI, Cough, Dyspnea, Hemoptysis, Dyspnea on Exertion , Wheezing, Snoring, Stridor, Pain on Inspiration, Chest Congestion, Excessive Mucous Production, Change in Mucous Color, Pain with Coughing, Other - Gastrointestinal Gastrointestinal: Abdominal Pain, Nausea - Genitourinary Genitourinary: Dysuria, Urinary Frequency, Freq UTI. absent: As Per HPI, Change in Urinary Stream, Difficulty Urinating, Flank Pain, Hematuria, Pyuria, Nocturia, Urinary Incontinence, Urinary Hesitance, Urinary Urgency, Voiding Freq /Small Amts, Hx Renal/Bladder Calculi, Hx /Renal Surgery, Bladder Distension, Other - Musculoskeletal Musculoskeletal: Arthralgias - Neurological Neurological: absent: As Per HPI, Abnormal Gait, Abnormal Hearing, Abnormal Movements, Abnormal Speech, Behavioral Changes, Burning Sensations, Confusion, Convulsions, Disequilibrium, Dizziness, Numbness, Focal Weakness, Frequent Falls , Headaches, Lack of Coordination, Loss of Vision, Memory Loss, Paresthesias, Radicular Pain, Restless Legs, Sensory Deficit, Syncope, Tingling, Tremor, Vertigo, Weakness, Other Visual Disturbances, Other Past Patient History - Past Social History Smoking Status: Light Smoker < 10 Cigarettes Daily - CARDIAC Hx Hypertension: Yes - PULMONARY Hx Respiratory Disorders: No - NEUROLOGICAL Hx Neurological Disorder: No - HEENT Hx HEENT Problems: No - RENAL Hx Chronic Kidney Disease: No - ENDOCRINE/METABOLIC Hx Diabetes Mellitus Type 1: Yes - HEMATOLOGICAL/ONCOLOGICAL Hx Blood Disorders: Yes Hx Hepatitis C: Yes - INTEGUMENTARY Hx Dermatological Problems: No - MUSCULOSKELETAL/RHEUMATOLOGICAL Hx Musculoskeletal Disorders: No Hx Falls: No - GASTROINTESTINAL Hx Gastrointestinal Disorders: No - GENITOURINARY/GYNECOLOGICAL Hx Genitourinary Disorders: No - PSYCHIATRIC Hx Substance Use: Yes (Methadone) - SURGICAL HISTORY Hx Surgeries: No - ANESTHESIA Hx Anesthesia: No Meds Allergies/Adverse Reactions: Allergies Allergy/AdvReac Type Severity Reaction Status Date / Time Penicillins Allergy PAIN Verified 04/28/17 20:52 - Medications Medications: Current Medications Gabapentin (Neurontin) 800 mg PO DAILY [facility] Last Admin: 04/30/17 12:14 Dose: 800 mg Heparin Sodium (Porcine) (Heparin) 5,000 units SC Q8 [facility] Last Admin: 04/30/17 13:34 Dose: 5,000 units Tigecycline 50 mg/ Sodium (Chloride) 100 mls @ 100 mls/hr IVPB Q12H [facility] Insulin Aspart (Novolog) 0 unit SC ACHS [facility]ICH[facility] PRN Reason: Protocol Last Admin: 04/30/17 17:29 Dose: 3 unit Insulin Aspart (Novolog) 20 unit SC AC [facility] Last Admin: 04/30/17 17:31 Dose: 20 unit Insulin Glargine (Lantus) 40 unit SC HS [facility] Lisinopril (Zestril) 10 mg PO DAILY [facility] Last Admin: 04/30/17 12:22 Dose: 10 mg Methadone HCl (Methadose) 200 mg PO DAILY@0800 [facility] Last Admin: 04/30/17 07:59 Dose: 200 mg Pantoprazole Sodium (Protonix Inj) 40 mg IVP DAILY [facility] Last Admin: 04/30/17 12:17 Dose: Not Given Quetiapine Fumarate (Seroquel) 100 mg PO BID [facility] Last Admin: 04/30/17 12:23 Dose: 100 mg Saccharomyces Boulardii (Florastor) 250 mg PO BID [facility] Last Admin: 04/30/17 17:32 Dose: 250 mg Zolpidem Tartrate (Ambien) 5 mg PO HS PRN PRN Reason: Insomnia Last Admin: 04/29/17 23:50 Dose: 5 mg Physical Exam - Constitutional Appears: No Acute Distress - Head Exam Head Exam: ATRAUMATIC, NORMOCEPHALIC - Eye Exam Eye Exam: Normal appearance Pupil Exam: NORMAL ACCOMODATION - ENT Exam ENT Exam: Mucous Membranes Moist - Neck Exam Neck exam: Positive for: Normal Inspection. Negative for: Full Rom, Lymphadenopathy, Meningismus, Tenderness, Thyromegaly - Respiratory Exam Respiratory Exam: Clear to Auscultation Bilateral, NORMAL BREATHING PATTERN. absent: Accessory Muscle Use, Chest Wall Tenderness, Decreased Breath Sounds, Prolonged Expiratory Phase, Rales, Rhonchi, Wheezes, Respiratory Distress, Stridor - Cardiovascular Exam Cardiovascular Exam: REGULAR RHYTHM. absent: Bradycardia, Tachycardia, Clicks, Diastolic murmur, Gallop, Irregular Rhythm, JVD, RRR, Rubs, +S1, +S2, +S4, Systolic Murmur - GI/Abdominal Exam GI & Abdominal Exam: Soft. absent: Bruit, Diminished Bowel Sounds, Distended, Firm, Guarding, Hernia, Hyperactive Bowel Sounds, Hypoactive Bowel Sounds, Mass , Normal Bowel Sounds, Organomegaly, Pulsatile Mass, Rebound, Rigid, Tenderness - Extremities Exam Extremities exam: Positive for: normal inspection. Negative for: calf tenderness, full ROM, joint swelling, normal capillary refill, pedal edema, tenderness, pedal pulses present - Back Exam Back exam: absent: CVA tenderness (L), CVA tenderness (R), FULL ROM, muscle spasm, NORMAL INSPECTION, paraspinal tenderness, rash noted, tenderness, vertebral tenderness Results - Vital Signs Recent Vital Signs: Last Vital Signs Temp 98.7 F 04/30/17 15:00 Pulse 95 H 04/30/17 15:00 Resp 20 04/30/17 15:00 BP 127/93 H 04/30/17 15:00 Pulse Ox 97 04/30/17 15:00 - Labs Result Diagrams: 04/30/17 08:08 04/30/17 08:08 Labs: Laboratory Results - last 24 hr 04/29/17 04/30/17 04/30/17 21:33 07:40 08:08 WBC 5.7 RBC 4.86 Hgb 14.6 Hct 43.2 MCV 89.0 MCH 30.1 MCHC 33.8 RDW 12.6 Plt Count 116 L MPV 10.3 Neut % (Auto) 50.3 Lymph % (Auto) 37.7 [place] % (Auto) 8.6 Eos % (Auto) 2.5 Baso % (Auto) 0.9 Neut # 2.9 Lymph # 2.2 [place] # 0.5 Eos # 0.1 Baso # 0.0 Differential Comment Sodium Potassium Chloride Carbon Dioxide Anion Gap BUN Creatinine Est GFR ( Amer) Est GFR (Non-Af Amer) POC Glucose (mg/dL) 357 H 302 H Random Glucose Hemoglobin A1c Calcium Phosphorus Magnesium Total Bilirubin GGT AST ALT Alkaline Phosphatase Total Protein Albumin Globulin Albumin/Globulin Ratio Triglycerides Cholesterol LDL Cholesterol Direct HDL Cholesterol Lipase TSH 3rd Generation 04/30/17 04/30/17 04/30/17 08:08 08:08 11:44 WBC RBC Hgb Hct MCV MCH MCHC RDW Plt Count MPV Neut % (Auto) Lymph % (Auto) [place] % (Auto) Eos % (Auto) Baso % (Auto) Neut # Lymph # [place] # Eos # Baso # Differential Comment Sodium 137 Potassium 3.7 Chloride 102 Carbon Dioxide 23 Anion Gap 16 BUN 10 Creatinine 0.5 L Est GFR ( Amer) > 60 Est GFR (Non-Af Amer) > 60 POC Glucose (mg/dL) 297 H Random Glucose 331 H Hemoglobin A1c 16.3 H Calcium 8.9 Phosphorus 3.6 Magnesium 1.7 Total Bilirubin 0.9 GGT 351 H AST 160 H D ALT 147 H Alkaline Phosphatase 142 H Total Protein 6.6 Albumin 3.4 L Globulin 3.2 Albumin/Globulin Ratio 1.0 Triglycerides 158 H Cholesterol 119 LDL Cholesterol Direct 73 HDL Cholesterol 23 L Lipase 148 TSH 3rd Generation 0.96 04/30/17 16:39 WBC RBC Hgb Hct MCV MCH MCHC RDW Plt Count MPV Neut % (Auto) Lymph % (Auto) [place] % (Auto) Eos % (Auto) Baso % (Auto) Neut # Lymph # [place] # Eos # Baso # Differential Comment Sodium Potassium Chloride Carbon Dioxide Anion Gap BUN Creatinine Est GFR ( Amer) Est GFR (Non-Af Amer) POC Glucose (mg/dL) 344 H Random Glucose Hemoglobin A1c Calcium Phosphorus Magnesium Total Bilirubin GGT AST ALT Alkaline Phosphatase Total Protein Albumin Globulin Albumin/Globulin Ratio Triglycerides Cholesterol LDL Cholesterol Direct HDL Cholesterol Lipase TSH 3rd Generation Assessment & Plan (1) Escherichia coli septicemia Assessment and Plan: Patient is allergic to penicillin but she has E coli esbl positive septiciemia will have to add tygacil or merrem with gentamicin Status: Acute (2) Hepatitis C Assessment and Plan: dr Ackerman is ordering further test,she is however HIv negative Status: Acute (3) Hepatitis C antibody positive in blood Status: Acute (4) Cystitis Status: Acute (5) Uncontrolled diabetes mellitus Status: Acute
[2017-04-30] MEDS ORDERED: (Lantus) Insulin Glargine, Recombinant SC SCH ×2 (22:00→22:49)
[2017-04-30] MEDS: Gentamicin 60mg/50ml NS 60 MG/50 ML BAG IVPB SCH (22:16)
--- NOTE | 2017-05-01 06:25 | CP.PCM.PN ---
<StephanieDony R - Last Filed: 05/01/17 18:17> Subjective - Date & Time of Evaluation Date of Evaluation: 05/01/17 Time of Evaluation: 07:30 - Subjective Subjective: Patient was seen and examined at bedside. Patient was resting comfortably in bed. She stated she had no complaints at this time. She said she's been eating well and slept well last night. She denied dysuria, chest pain, shortness of breath, abdominal pain, flank pain, diarrhea, vomiting, fever, nausea. Objective - Vital Signs/Intake and Output Vital Signs (last 24 hours): Temp Pulse Resp BP Pulse Ox 98.6 F 86 20 125/84 97 04/30/17 21:30 04/30/17 21:30 04/30/17 21:30 04/30/17 21:30 04/30/17 21:30 - Medications Medications: Current Medications Gabapentin (Neurontin) 800 mg PO DAILY [facility] Last Admin: 04/30/17 12:14 Dose: 800 mg Heparin Sodium (Porcine) (Heparin) 5,000 units SC Q8 [facility] Last Admin: 04/30/17 22:15 Dose: 5,000 units Tigecycline 50 mg/ Sodium (Chloride) 100 mls @ 100 mls/hr IVPB Q12H [facility] Last Admin: 05/01/17 05:58 Dose: 100 mls/hr Gentamicin Sulfate/Sodium Chloride (Gentamicin 60mg/50ml Ns) 60 mg in 50 mls @ 100 mls/hr IVPB Q8 [facility] Last Admin: 04/30/17 22:16 Dose: 100 mls/hr Insulin Aspart (Novolog) 0 unit SC ACHS [facility] PRN Reason: Protocol Last Admin: 04/30/17 22:10 Dose: Not Given Insulin Aspart (Novolog) 20 unit SC AC [facility] Last Admin: 04/30/17 17:31 Dose: 20 unit Insulin Glargine (Lantus) 40 unit SC HS [facility] Last Admin: 04/30/17 22:16 Dose: 40 units Lisinopril (Zestril) 10 mg PO DAILY [facility] Last Admin: 04/30/17 12:22 Dose: 10 mg Methadone HCl (Methadose) 200 mg PO DAILY@0800 [facility] Last Admin: 04/30/17 07:59 Dose: 200 mg Pantoprazole Sodium (Protonix Inj) 40 mg IVP DAILY [facility] Last Admin: 04/30/17 12:17 Dose: Not Given Quetiapine Fumarate (Seroquel) 100 mg PO BID [facility] Last Admin: 04/30/17 18:00 Dose: 100 mg Saccharomyces Boulardii (Florastor) 250 mg PO BID [facility] Last Admin: 04/30/17 17:32 Dose: 250 mg Zolpidem Tartrate (Ambien) 5 mg PO HS PRN PRN Reason: Insomnia Last Admin: 04/30/17 22:16 Dose: 5 mg - Labs Labs: 04/30/17 08:08 04/30/17 08:08 PT 12.6 SECONDS (9.7-12.2) H 04/29/17 08:09 INR 1.1 04/29/17 08:09 - Constitutional Appears: Well - Head Exam Head Exam: ATRAUMATIC, NORMAL INSPECTION, NORMOCEPHALIC - Eye Exam Eye Exam: EOMI, Normal appearance, PERRL - ENT Exam ENT Exam: Mucous Membranes Moist, Normal Exam - Neck Exam Neck Exam: Full ROM, Normal Inspection. absent: Lymphadenopathy - Respiratory Exam Respiratory Exam: Clear to Ausculation Bilateral, NORMAL BREATHING PATTERN - GI/Abdominal Exam GI & Abdominal Exam: Soft, Normal Bowel Sounds. absent: Tenderness - Rectal Exam Rectal Exam: Deferred - Extremities Exam Extremities Exam: Full ROM, Normal Capillary Refill, Normal Inspection. absent : Joint Swelling, Pedal Edema - Neurological Exam Neurological Exam: Alert, Awake, Oriented x3 - Psychiatric Exam Psychiatric exam: Normal Affect, Normal Mood - Skin Skin Exam: Dry, Intact, Normal Color, Warm Assessment and Plan - Assessment and Plan (Free Text) Assessment: 1. Complicated Urinary Tract Infection 05/01: waiting for blood culture organism identification 04/30: started tigecycline 50mg iv q12 as it is sensitive for e coli in urine 04/30: stopped cefepime as it is resistant for e coli in urine 04/28: urine culture -> e coli 04/28: blood culture x2 -> gram negative rods 04/28: CXR: no active disease * suspicion for emphysematous cystitis * CT scan (04/28/17): moderate amount of air in urinary bladder, emphysematous cystitis cannot be excluded (further details available on the EMR) * Urology Consult, Dr. Kateryna Rangel, help appreciated * ID consult, Dr. Payne, help appreciated--f/u given questionable PCN allergy * 04/28: UA -> positive for glucose, ketones, urobilinogen, leukocyte esterase, wbc, rbc, epith cells, bacteria * IV abx: Aztreonam 2 g IV q8h * IV abx: cefepime 2gm IV q12 * Ordered for STD testing given patient is sexually active, no condoms, and prior history of prostitution: gonorrhea, chlamydia * 04/29: AMS, Head CT ordered: 1. No definite acute intracranial abnormality. Acute infarction may be CT occult within first 24 hours. If a focal deficit persists, consider followup CT or MRI for further evaluation. 2. Incidental/ non-acute findings are described above. * Florastor 250mg PO BID 2. Abdominal Pain * amylase: normal; lipase: normal * CT scan (04/28/17): enlarged liver with diffuse fatty infiltration and mild intrahepatic biliary ductal dilation, distended gallbladder, appendix 8.8mm ( further details available in the EMR) * Abdominal U/S ordered -RUQ pain; patient has negative James's sign on exam * 04/29: Abd Ultrasound: Cholelithiasis without sonographic evidence of cholecystitis. Mild hepatomegaly with fatty infiltration. No additional abnormality. * General surgery, Dr. Dodd, help appreciated-->for further evaluation 3. Questionable Penicillin Allergy * f/u with PMD, Dr. Parrish, regarding confirmation of patient's allergy * Given: solumedrol 40 mg iv x1, Benadryl 25mg x1, Pepcid 20 mg iv x1 in light of receiving Rocephin in the ED; patient denies pruritus; swelling nor oropharyngeal involvement * Patient reports she has tolerated Amoxicillin/Augmentin in the past 4. Uncontrolled Diabetes 05/01: adjusted insulin regimen today. novolog 25 u sc ac. lantus 56 u sc hs. * HbA1c 16.6 * 04/30: Triglycerides 158, Cholesterol 119, LDL pending, HDL 23 * Accucheck q6 hours * discontinued: D51/2 NS 100 cc/ hour * Lantus 25 units q daily (patient took this morning) * Novolog sliding scale (low) subq * Hold metformin on admission * Neurontin 800mg PO daily 5. Hypertension * f/u pharmacy to confirm meds; patient cannot recall medication * monitor vitals * lisinopril 10mg po daily 6. History of Bipolar disorder and PTSD * Patient started on low dose Seroquel 25mg po daily until her actual dose is confirmed in the AM * f/u pharmacy to confirm * psychiatry following, per Dr Rodriguez: Mood disorder CBT Psychoeducation Supportive therapy, group therapy, individual therapy Seroquel 25 mg pO Daily Neurontin 100 mg po TID 7. Leg Pain * CPK is low * 04/29: Lower extremity ultrasound -> No evidence of hemodynamically significant arterial insufficiency in lower extremities b/l * 04/30: venous duplex scan ordered, f/u 8. Opioid use in sustained remission * On maintenance therapy - Will confirm with [facility] clin in [place] for Methadone dose * 04/29: Spoke with Pt's team lead Areli at [facility] who verified 200mg methadone dose every morning * No narcotic medications * Has been sober for 4 years; on methadone maintenance * psychiatry following, per dr Rodriguez: CBT Psychoeducation Supportive therapy, individual therapy Clonidine when necessary Methadone 200 mg PO Daily (dose verified) 9. Hepatitis C 04/30: Per Dr Pantoja: "Obtain autoimmune panel. No planned GI intervention for chronic HCV, she should be considered for outpatient elective treatment following resolution of acute symptoms. Will sign off case, please reconsult as necessary, thank you. 04/30: f/u mitochondrial antibodies and smooth muscle antibodies * hx of hep C, 04/29: hepatitic C reactive, GI consulted - Dr Pantoja * not on treatment * HIV 1&2, Hepatitis panel * 10. Elevated LFTs 04/30: Likely 2/2 Hep C or likely 2/2 Aztreonam. Trend LFTs going forward. 10. Prophylactic Measure * protonix 40 mg IVQ daily for GI ppx * Heparin 5000 units sc q8h * florastor 250 mg po bid * consistent carb diet * discontinued D51/2 NS 100cc/hr <Da Dewitt - Last Filed: 05/01/17 19:52> Objective - Vital Signs/Intake and Output Vital Signs (last 24 hours): Temp Pulse Resp BP Pulse Ox 98.4 F 80 18 121/87 98 05/01/17 16:00 05/01/17 16:00 05/01/17 16:00 05/01/17 16:00 05/01/17 16:00 Intake and Output: 05/01/17 05/02/17 18:59 06:59 Intake Total 700 Balance 700 - Medications Medications: Current Medications Acetaminophen (Tylenol 325mg Tab) 650 mg PO Q6 PRN PRN Reason: Pain, moderate (4-7) Last Admin: 05/01/17 17:30 Dose: 650 mg Gabapentin (Neurontin) 800 mg PO DAILY [facility] Last Admin: 05/01/17 09:14 Dose: 800 mg Heparin Sodium (Porcine) (Heparin) 5,000 units SC Q8 [facility] Last Admin: 05/01/17 13:37 Dose: 5,000 units Tigecycline 50 mg/ Sodium (Chloride) 100 mls @ 100 mls/hr IVPB Q12H [facility] Last Admin: 05/01/17 16:25 Dose: 100 mls/hr Gentamicin Sulfate/Sodium Chloride (Gentamicin 60mg/50ml Ns) 60 mg in 50 mls @ 100 mls/hr IVPB Q8 [facility] Last Admin: 05/01/17 13:00 Dose: 100 mls/hr Insulin Aspart (Novolog) 0 unit SC ACHS [facility] PRN Reason: Protocol Last Admin: 05/01/17 17:33 Dose: 3 unit Insulin Aspart (Novolog) 25 unit SC AC [facility] Last Admin: 05/01/17 17:33 Dose: 25 unit Insulin Glargine (Lantus) 56 unit SC HS [facility] Lisinopril (Zestril) 10 mg PO DAILY [facility] Last Admin: 05/01/17 09:14 Dose: 10 mg Methadone HCl (Methadose) 200 mg PO DAILY@0800 [facility] Last Admin: 05/01/17 07:51 Dose: 200 mg Pantoprazole Sodium (Protonix Inj) 40 mg IVP DAILY [facility] Last Admin: 05/01/17 09:14 Dose: 40 mg Quetiapine Fumarate (Seroquel) 100 mg PO BID [facility] Last Admin: 05/01/17 09:14 Dose: 100 mg Saccharomyces Boulardii (Florastor) 250 mg PO BID [facility] Last Admin: 05/01/17 17:31 Dose: 250 mg Zolpidem Tartrate (Ambien) 5 mg PO HS PRN PRN Reason: Insomnia Last Admin: 04/30/17 22:16 Dose: 5 mg - Labs Labs: 05/01/17 07:04 05/01/17 07:04 PT 12.6 SECONDS (9.7-12.2) H 04/29/17 08:09 INR 1.1 04/29/17 08:09 Attending/Attestation - Attestation I have personally seen and examined this patient.: Yes I have fully participated in the care of the patient.: Yes I have reviewed all pertinent clinical information, including history, physical exam and plan: Yes Notes (Text): 05/01/17 19:50 Patient was seen and examined at 5:12 PM 05/01/17 Assessment and Plan were thoroughly gone over with the Resident. Tylenol 650 mg PO Q6H PRN Bilateral Thigh Pain ordered. Explained to patient that we could not give her additional narcotics as she was already on Methadone 200 mg PO 1x/day for her history of drug abuse. She does not appear to be uncomfortable with the bilateral thigh soreness and expressed understanding. Da Dewitt D.O.
[2017-05-01] MEDS: Gentamicin 60mg/50ml NS 60 MG/50 ML BAG IVPB SCH ×3 (07:13→21:15)
[2017-05-01 07:37] LABS: ALBUMIN 3.1 g/dL (3.5-5.0)
[2017-05-01 07:39] LABS: BASO % 0.8 % (0.0-2.0); EOS # 0.2 K/uL (0.0-0.7); EOS % 2.7 % (0.0-4.0); GFR AFRICAN-AMERICAN > 60; GFR NON-AFRICAN AMERICAN > 60; HEMOGLOBIN 14.1 g/dL (11.0-16.0); LYMPH # 2.8 K/uL (1.0-4.3); LYMPH % 46.5 % (20.0-40.0); MEAN CELL VOLUME 89.7 fL (81.0-99.0); MEAN CORPUSCULAR HEMOGLOBIN 30.2 pg (27.0-31.0); MEAN CORPUSCULAR HGB CONC 33.6 g/dL (33.0-37.0); MEAN PLATELET VOLUME 9.9 fL (7.2-11.7); MONO # 0.5 K/uL (0.0-0.8); MONO % 8.4 % (0.0-10.0); NEUT # 2.5 K/uL (1.8-7.0); NEUT % 41.6 % (50.0-75.0); NRBC % 0.1 % (0.0-2.0); RBC 4.69 Mil/uL (3.80-5.20); RED CELL DISTRIBUTION WIDTH 12.8 % (11.5-14.5)
[2017-05-01 07:40] LABS: ALB/GLOB RATIO 0.9 (1.0-2.1); AST/SGOT 159 U/L (14-36); BLOOD UREA NITROGEN 16 mg/dL (7-17); CALCIUM 8.9 mg/dl (8.6-10.4)
[2017-05-01 07:41] LABS: ALT/SGPT 156 U/L (9-52); MAGNESIUM 1.6 mg/dL (1.6-2.3)
[2017-05-01] MEDS: (Novolog) Insulin Aspart, Recombinant 100 u/ml 10 ml vial SC SCH ×6 (07:41→22:08)
[2017-05-01] MEDS: Methadone 40 mg Tab PO SCH (07:51)
[2017-05-01] MEDS: Saccharomyces Boulardi 250 mg Cap PO SCH ×2 (09:14→17:31)
--- NOTE | 2017-05-01 10:54 | PCM.URO ---
Urology Progress Note - Subjective Abdominal Pain: Yes (multiple ) - Objective Lab Results Last 24 Hours: Laboratory Results - last 24 hr 04/30/17 04/30/17 04/30/17 08:08 11:44 16:39 WBC RBC Hgb Hct MCV MCH MCHC RDW Plt Count MPV Neut % (Auto) Lymph % (Auto) [place] % (Auto) Eos % (Auto) Baso % (Auto) Neut # Lymph # [place] # Eos # Baso # Differential Comment Sodium Potassium Chloride Carbon Dioxide Anion Gap BUN Creatinine Est GFR ( Amer) Est GFR (Non-Af Amer) POC Glucose (mg/dL) 297 H 344 H Random Glucose Calcium Phosphorus Magnesium Total Bilirubin AST ALT Alkaline Phosphatase Total Protein Albumin Globulin Albumin/Globulin Ratio 04/30/17 05/01/17 05/01/17 22:05 06:11 07:04 WBC 6.0 RBC 4.69 Hgb 14.1 Hct 42.0 MCV 89.7 MCH 30.2 MCHC 33.6 RDW 12.8 Plt Count 103 L MPV 9.9 Neut % (Auto) 41.6 L Lymph % (Auto) 46.5 H [place] % (Auto) 8.4 Eos % (Auto) 2.7 Baso % (Auto) 0.8 Neut # 2.5 Lymph # 2.8 [place] # 0.5 Eos # 0.2 Baso # 0.0 Differential Comment Sodium Potassium Chloride Carbon Dioxide Anion Gap BUN Creatinine Est GFR ( Amer) Est GFR (Non-Af Amer) POC Glucose (mg/dL) 198 H 310 H Random Glucose Calcium Phosphorus Magnesium Total Bilirubin AST ALT Alkaline Phosphatase Total Protein Albumin Globulin Albumin/Globulin Ratio 05/01/17 07:04 WBC RBC Hgb Hct MCV MCH MCHC RDW Plt Count MPV Neut % (Auto) Lymph % (Auto) [place] % (Auto) Eos % (Auto) Baso % (Auto) Neut # Lymph # [place] # Eos # Baso # Differential Comment Sodium 135 Potassium 3.9 Chloride 101 Carbon Dioxide 25 Anion Gap 13 BUN 16 Creatinine 0.7 Est GFR ( Amer) > 60 Est GFR (Non-Af Amer) > 60 POC Glucose (mg/dL) Random Glucose 333 H Calcium 8.9 Phosphorus 3.7 Magnesium 1.6 Total Bilirubin 0.8 AST 159 H ALT 156 H Alkaline Phosphatase 135 H Total Protein 6.4 Albumin 3.1 L Globulin 3.3 Albumin/Globulin Ratio 0.9 L Vital Signs: Vital Signs - 24 hr 04/30/17 04/30/17 05/01/17 15:00 21:30 08:31 Temperature 98.7 F 98.6 F 98.4 F Pulse Rate 95 H 86 90 Respiratory 20 20 18 Rate Blood Pressure 127/93 H 125/84 143/101 H O2 Sat by Pulse 97 97 97 Oximetry
--- NOTE | 2017-05-01 11:45 | CARD ---
APPROVED REPORT EKG Measurement Heart [id number] CT 126P-17 [id number] <Conclusion> Normal sinus rhythm Minimal voltage criteria for LVH, may be normal variant Borderline ECG
--- NOTE | 2017-05-01 16:17 | CARD ---
APPROVED REPORT EXAM: Two-dimensional and M-mode echocardiogram with Doppler and color Doppler. Other Information Quality : GoodRhythm : NSR INDICATION Chest Pain Hep C RISK FACTORS Diabetes M-Mode DIMENSIONS RVDd2.34 (2.1-3.2cm)Left Atrium (MM)3.83 (2.5-4.0cm) IVSd1.07 (0.7-1.1cm)Aortic Root3.07 (2.2-3.7cm) LVDd4.51 (4.0-5.6cm)Aortic Cusp Exc.1.58 (1.5-2.0cm) PWd0.96 (0.7-1.1cm)FS (%) 26 % LVDs3.33 (2.0-3.8cm)LVEF (%)52 (>50%) Mitral Valve MV E Dduzwvqk21.1cm/sMV A Uvmrpnhy60.1cm/sE/A ratio0.6 TDI E/Lateral E'0.0E/Medial E'0.0 Tricuspid Valve TR Peak [id number]/sTR Peak Gr.[id number] LEFT VENTRICLE The left ventricle is normal size. There is normal left ventricular wall thickness. The left ventricular systolic function is normal. The left ventricular ejection fraction is within the normal range. There is normal LV segmental wall motion. The left ventricular diastolic function is normal. RIGHT VENTRICLE The right ventricle is normal size. The right ventricular systolic function is normal. ATRIA The left atrium size is normal. The right atrium size is normal. AORTIC VALVE The aortic valve is normal in structure. No aortic regurgitation is present. MITRAL VALVE The mitral valve is normal in structure. There is no mitral valve regurgitation noted. TRICUSPID VALVE The tricuspid valve is normal in structure. There is trace tricuspid regurgitation. PULMONIC VALVE The pulmonary valve is normal in structure. There is trace pulmonic valvular regurgitation. GREAT VESSELS The aortic root is normal in size. The IVC is normal in size and collapses >50% with inspiration. PERICARDIAL EFFUSION There is no pericardial effusion. <Conclusion> Normal biventricular function. No structural valvular abnormality. No pericardial effusion.
--- NOTE | 2017-05-01 21:51 | CP.PCM.PN ---
Subjective - Date & Time of Evaluation Date of Evaluation: 05/01/17 Time of Evaluation: 03:15 - Subjective Subjective: Patient is complaining of right thigh pain though there is no obvious sign of swelling,redness or pain,She is on Tygacil and gentamicin will repeat blood cultures as she has morganella septiciemia,denies any nausea or vomiting and asks if she will get better Objective - Vital Signs/Intake and Output Vital Signs (last 24 hours): Temp Pulse Resp BP Pulse Ox 98.4 F 80 18 121/87 98 05/01/17 16:00 05/01/17 16:00 05/01/17 16:00 05/01/17 16:00 05/01/17 16:00 Intake and Output: 05/01/17 05/02/17 18:59 06:59 Intake Total 700 Balance 700 - Medications Medications: Current Medications Acetaminophen (Tylenol 325mg Tab) 650 mg PO Q6 PRN PRN Reason: Pain, moderate (4-7) Last Admin: 05/01/17 17:30 Dose: 650 mg Gabapentin (Neurontin) 800 mg PO DAILY [facility] Last Admin: 05/01/17 09:14 Dose: 800 mg Heparin Sodium (Porcine) (Heparin) 5,000 units SC Q8 [facility] Last Admin: 05/01/17 21:15 Dose: 5,000 units Tigecycline 50 mg/ Sodium (Chloride) 100 mls @ 100 mls/hr IVPB Q12H [facility] Last Admin: 05/01/17 16:25 Dose: 100 mls/hr Gentamicin Sulfate/Sodium Chloride (Gentamicin 60mg/50ml Ns) 60 mg in 50 mls @ 100 mls/hr IVPB Q8 [facility] Last Admin: 05/01/17 21:15 Dose: 100 mls/hr Insulin Aspart (Novolog) 0 unit SC ACHS [facility] PRN Reason: Protocol Last Admin: 05/01/17 17:33 Dose: 3 unit Insulin Aspart (Novolog) 25 unit SC AC [facility] Last Admin: 05/01/17 17:33 Dose: 25 unit Insulin Glargine (Lantus) 60 unit SC HS [facility] Lisinopril (Zestril) 10 mg PO DAILY [facility] Last Admin: 05/01/17 09:14 Dose: 10 mg Methadone HCl (Methadose) 200 mg PO DAILY@0800 [facility] Last Admin: 05/01/17 07:51 Dose: 200 mg Pantoprazole Sodium (Protonix Inj) 40 mg IVP DAILY [facility] Last Admin: 05/01/17 09:14 Dose: 40 mg Quetiapine Fumarate (Seroquel) 100 mg PO BID [facility] Last Admin: 05/01/17 19:00 Dose: 100 mg Saccharomyces Boulardii (Florastor) 250 mg PO BID [facility] Last Admin: 05/01/17 17:31 Dose: 250 mg Zolpidem Tartrate (Ambien) 5 mg PO HS PRN PRN Reason: Insomnia Last Admin: 04/30/17 22:16 Dose: 5 mg - Labs Labs: 05/01/17 07:04 05/01/17 07:04 PT 12.6 SECONDS (9.7-12.2) H 04/29/17 08:09 INR 1.1 04/29/17 08:09 - Constitutional Appears: No Acute Distress - Head Exam Head Exam: ATRAUMATIC, NORMOCEPHALIC - Eye Exam Eye Exam: Normal appearance Pupil Exam: NORMAL ACCOMODATION - ENT Exam ENT Exam: Mucous Membranes Moist - Neck Exam Neck Exam: Normal Inspection - Respiratory Exam Respiratory Exam: Clear to Ausculation Bilateral, NORMAL BREATHING PATTERN - Cardiovascular Exam Cardiovascular Exam: REGULAR RHYTHM, RRR - GI/Abdominal Exam GI & Abdominal Exam: Soft, Normal Bowel Sounds - Extremities Exam Extremities Exam: Normal Inspection - Back Exam Back Exam: NORMAL INSPECTION Assessment and Plan (1) Escherichia coli septicemia Assessment & Plan: Patient is on antibiotics and will follow also seen by Urologist Status: Acute (2) Hepatitis C Assessment & Plan: follow up with GI Status: Acute (3) Hepatitis C antibody positive in blood Status: Acute (4) Cystitis Status: Acute (5) Uncontrolled diabetes mellitus Status: Acute
[2017-05-01] MEDS ORDERED: (Lantus) Insulin Glargine, Recombinant SC SCH ×2 (22:00)
[2017-05-02] MEDS: Gentamicin 60mg/50ml NS 60 MG/50 ML BAG IVPB SCH ×3 (06:27→21:57)
[2017-05-02 07:34] LABS: BASO % 0.6 % (0.0-2.0); EOS # 0.2 K/uL (0.0-0.7); EOS % 3.7 % (0.0-4.0); HEMOGLOBIN 14.4 g/dL (11.0-16.0); LYMPH # 2.6 K/uL (1.0-4.3); LYMPH % 42.6 % (20.0-40.0); MEAN CELL VOLUME 89.6 fL (81.0-99.0); MEAN CORPUSCULAR HEMOGLOBIN 29.9 pg (27.0-31.0); MEAN CORPUSCULAR HGB CONC 33.4 g/dL (33.0-37.0); MEAN PLATELET VOLUME 9.7 fL (7.2-11.7); MONO # 0.6 K/uL (0.0-0.8); MONO % 10.4 % (0.0-10.0); NEUT # 2.6 K/uL (1.8-7.0); NEUT % 42.7 % (50.0-75.0); NRBC % 0.1 % (0.0-2.0); RBC 4.81 Mil/uL (3.80-5.20); RED CELL DISTRIBUTION WIDTH 12.8 % (11.5-14.5)
[2017-05-02 07:57] LABS: ALBUMIN 3.2 g/dL (3.5-5.0)
[2017-05-02 08:00] LABS: GFR AFRICAN-AMERICAN > 60; GFR NON-AFRICAN AMERICAN > 60
[2017-05-02 08:01] LABS: ALT/SGPT 163 U/L (9-52); AST/SGOT 157 U/L (14-36); BLOOD UREA NITROGEN 16 mg/dL (7-17); CALCIUM 8.8 mg/dl (8.6-10.4); MAGNESIUM 1.7 mg/dL (1.6-2.3)
[2017-05-02] MEDS: Methadone 40 mg Tab PO SCH (08:19)
[2017-05-02] MEDS: (Novolog) Insulin Aspart, Recombinant 100 u/ml 10 ml vial SC SCH ×7 (09:42→22:00)
--- NOTE | 2017-05-02 10:26 | VASCLAB ---
PROCEDURE: Lower Extremity Venous Duplex Exam. HISTORY: left leg pain PRIORS: None. TECHNIQUE: Bilateral common femoral, femoral, popliteal and posterior tibial, peroneal and great saphenous veins were evaluated. Flow was assessed with color Doppler, compressibility, assessment of phasic flow and augmentation response. Report prepared by John Paul Burger, DOMINGO, RVT FINDINGS: RIGHT: 1. Common Femoral Vein: 1.1. Compressibility - Fully compressible: Thrombus - None : Flow - Phasic: Augmentation -Normal: Reflux - None. 2. Femoral Vein: 2.1. Compressibility - Fully compressible: Thrombus - None : Flow - Phasic: Augmentation -Normal: Reflux - None. 3. Popliteal Vein: 3.1. Compressibility - Fully compressible: Thrombus - None : Flow - Phasic: Augmentation -Normal: Reflux - None. 4. Posterior Tibial Vein: 4.1. Compressibility - Fully compressible: Thrombus - None: Flow - Phasic: Augmentation -Normal: Reflux - None. 5. Peroneal Vein: 5.1. Compressibility - Fully compressible: Thrombus - None: Flow - Phasic: Augmentation -Normal: Reflux - None. 6. Great Saphenous Vein: 6.1. Compressibility - Fully compressible: Thrombus - None: Flow - Phasic: Augmentation - Normal: Reflux - None. LEFT: 1. Common Femoral Vein: 1.1. Compressibility - Fully compressible: Thrombus - None: Flow - Phasic: Augmentation -Normal: Reflux - None. 2. Femoral Vein: 2.1. Compressibility - Fully compressible: Thrombus - None: Flow - Phasic: Augmentation -Normal: Reflux - None. 3. Popliteal Vein: 3.1. Compressibility - Fully compressible: Thrombus - None : Flow - Phasic: Augmentation -Normal: Reflux - None. 4. Posterior Tibial Vein: 4.1. Compressibility - Fully compressible: Thrombus - None: Flow - Phasic: Augmentation -Normal: Reflux - None. 5. Peroneal Vein: 5.1. Compressibility - Fully compressible: Thrombus - None: Flow - Phasic: Augmentation -Normal: Reflux - None. 6. Great Saphenous Vein: 6.1. Compressibility - Fully compressible: Thrombus - None: Flow - Phasic: Augmentation - Normal: Reflux - Severe. OTHER FINDINGS: Right: None significant. Left: Severe valvular incompetence of the left greater saphenous vein. IMPRESSION: Right: No evidence of deep or superficial vein thrombosis of the right lower extremity. Normal valve function noted of the right side. Left: No evidence of deep or superficial vein thrombosis of the left lower extremity.
--- NOTE | 2017-05-02 10:36 | CP.PCM.PN ---
<StephanieDony Vipul - Last Filed: 05/02/17 19:28> Subjective - Date & Time of Evaluation Date of Evaluation: 05/02/17 Time of Evaluation: 08:15 - Subjective Subjective: Patient was seen and examined at bedside. Patient was in NAD. She was able to get some adequate sleep last night. General pain is well controlled. Patient does admit to having 1 episode of loose, brown diarrhea last night. Denies any blood or color changes to stool. She has been able to urinate without any issue as well. Denies dysuria or hematuria. When asked if there was any changes to her leg pain, patient admits to mild pain still present in the right lower leg, unchanged from yesterday. Also mentions presence of "static-like" tingling to the dorsum of the left foot this morning as well. Denies any burning, numbness or calf pain in association. She also denies any chest pain, nausea, vomiting, abdominal pain, headache or SOB. No other complaints are noted at this time. Objective - Vital Signs/Intake and Output Vital Signs (last 24 hours): Temp Pulse Resp BP Pulse Ox 98.0 F 77 18 139/82 98 05/02/17 08:59 05/02/17 08:59 05/02/17 08:59 05/02/17 08:59 05/02/17 08:59 Intake and Output: 05/02/17 05/02/17 06:59 18:59 Intake Total 750 Balance 750 - Medications Medications: Current Medications Acetaminophen (Tylenol 325mg Tab) 650 mg PO Q6 PRN PRN Reason: Pain, moderate (4-7) Last Admin: 05/01/17 17:30 Dose: 650 mg Gabapentin (Neurontin) 800 mg PO DAILY [facility] Last Admin: 05/01/17 09:14 Dose: 800 mg Heparin Sodium (Porcine) (Heparin) 5,000 units SC Q8 [facility] Last Admin: 05/02/17 06:27 Dose: 5,000 units Tigecycline 50 mg/ Sodium (Chloride) 100 mls @ 100 mls/hr IVPB Q12H [facility] Last Admin: 05/02/17 05:11 Dose: 100 mls/hr Gentamicin Sulfate/Sodium Chloride (Gentamicin 60mg/50ml Ns) 60 mg in 50 mls @ 100 mls/hr IVPB Q8 [facility] Last Admin: 05/02/17 06:27 Dose: 100 mls/hr Insulin Aspart (Novolog) 0 unit SC ACHS [facility] PRN Reason: Protocol Last Admin: 05/02/17 09:42 Dose: 3 unit Insulin Aspart (Novolog) 25 unit SC AC [facility] Last Admin: 05/02/17 09:42 Dose: 25 unit Insulin Glargine (Lantus) 60 unit SC HS [facility] Last Admin: 05/01/17 22:09 Dose: 60 units Lisinopril (Zestril) 10 mg PO DAILY [facility] Last Admin: 05/01/17 09:14 Dose: 10 mg Methadone HCl (Methadose) 200 mg PO DAILY@0800 [facility] Last Admin: 05/02/17 08:19 Dose: 200 mg Pantoprazole Sodium (Protonix Inj) 40 mg IVP DAILY [facility] Last Admin: 05/01/17 09:14 Dose: 40 mg Quetiapine Fumarate (Seroquel) 100 mg PO BID [facility] Last Admin: 05/01/17 19:00 Dose: 100 mg Saccharomyces Boulardii (Florastor) 250 mg PO BID [facility] Last Admin: 05/01/17 17:31 Dose: 250 mg Zolpidem Tartrate (Ambien) 5 mg PO HS PRN PRN Reason: Insomnia Last Admin: 04/30/17 22:16 Dose: 5 mg - Labs Labs: 05/02/17 07:24 05/02/17 07:24 PT 12.6 SECONDS (9.7-12.2) H 04/29/17 08:09 INR 1.1 04/29/17 08:09 - Constitutional Appears: Well - Head Exam Head Exam: ATRAUMATIC, NORMAL INSPECTION, NORMOCEPHALIC - Eye Exam Eye Exam: EOMI, Normal appearance, PERRL - ENT Exam ENT Exam: Mucous Membranes Moist, Normal Exam - Neck Exam Neck Exam: Full ROM, Normal Inspection. absent: Lymphadenopathy - Respiratory Exam Respiratory Exam: Clear to Ausculation Bilateral, NORMAL BREATHING PATTERN - Cardiovascular Exam Cardiovascular Exam: REGULAR RHYTHM, +S1, +S2. absent: Murmur - GI/Abdominal Exam GI & Abdominal Exam: Soft, Normal Bowel Sounds. absent: Tenderness - Rectal Exam Rectal Exam: Deferred - Extremities Exam Extremities Exam: Full ROM, Normal Capillary Refill, Normal Inspection. absent : Joint Swelling, Pedal Edema - Neurological Exam Neurological Exam: Alert, Awake, Oriented x3 - Psychiatric Exam Psychiatric exam: Normal Affect, Normal Mood - Skin Skin Exam: Dry, Intact, Normal Color, Warm Assessment and Plan - Assessment and Plan (Free Text) Assessment: 1. Complicated Urinary Tract Infection 05/02: Blood culture shows enterobacter 05/01: waiting for blood culture organism identification 04/30: started tigecycline 50mg iv q12 as it is sensitive for e coli in urine 04/30: stopped cefepime as it is resistant for e coli in urine 04/28: urine culture -> e coli 04/28: blood culture x2 -> gram negative rods 04/28: CXR: no active disease * suspicion for emphysematous cystitis * CT scan (04/28/17): moderate amount of air in urinary bladder, emphysematous cystitis cannot be excluded (further details available on the EMR) * Urology Consult, Dr. Kateryna Rangel, help appreciated * ID consult, Dr. Payne, help appreciated--f/u given questionable PCN allergy * 04/28: UA -> positive for glucose, ketones, urobilinogen, leukocyte esterase, wbc, rbc, epith cells, bacteria * IV abx: Aztreonam 2 g IV q8h * IV abx: cefepime 2gm IV q12 * Ordered for STD testing given patient is sexually active, no condoms, and prior history of prostitution: gonorrhea, chlamydia * 04/29: AMS, Head CT ordered: 1. No definite acute intracranial abnormality. Acute infarction may be CT occult within first 24 hours. If a focal deficit persists, consider followup CT or MRI for further evaluation. 2. Incidental/ non-acute findings are described above. * Florastor 250mg PO BID 2. Abdominal Pain * amylase: normal; lipase: normal * CT scan (04/28/17): enlarged liver with diffuse fatty infiltration and mild intrahepatic biliary ductal dilation, distended gallbladder, appendix 8.8mm ( further details available in the EMR) * Abdominal U/S ordered -RUQ pain; patient has negative James's sign on exam * 04/29: Abd Ultrasound: Cholelithiasis without sonographic evidence of cholecystitis. Mild hepatomegaly with fatty infiltration. No additional abnormality. * General surgery, Dr. Dodd, help appreciated-->for further evaluation 3. Questionable Penicillin Allergy * f/u with PMD, Dr. Parrish, regarding confirmation of patient's allergy * Given: solumedrol 40 mg iv x1, Benadryl 25mg x1, Pepcid 20 mg iv x1 in light of receiving Rocephin in the ED; patient denies pruritus; swelling nor oropharyngeal involvement * Patient reports she has tolerated Amoxicillin/Augmentin in the past 4. Uncontrolled Diabetes 05/02: Dr Mitchell adjusted insulin regimen today. novolog 34 u sc ac. lantus 80 u sc hs. 05/01: adjusted insulin regimen today. novolog 25 u sc ac. lantus 56 u sc hs. * HbA1c 16.6 * 04/30: Triglycerides 158, Cholesterol 119, LDL pending, HDL 23 * Accucheck q6 hours * discontinued: D510/22 NS 100 cc/ hour * Lantus 25 units q daily (patient took this morning) * Novolog sliding scale (low) subq * Hold metformin on admission * Neurontin 800mg PO daily 5. Hypertension * f/u pharmacy to confirm meds; patient cannot recall medication * monitor vitals * lisinopril 10mg po daily 6. History of Bipolar disorder and PTSD * Patient started on low dose Seroquel 25mg po daily until her actual dose is confirmed in the AM * f/u pharmacy to confirm * psychiatry following, per Dr Rodriguez: Mood disorder CBT Psychoeducation Supportive therapy, group therapy, individual therapy Seroquel 25 mg pO Daily Neurontin 100 mg po TID 7. Leg Pain 05/02: started tylenol 650mg q6 prn. Will not give narcotics for leg pain as she is already takes methadone. * CPK is low * 04/29: Lower extremity ultrasound -> No evidence of hemodynamically significant arterial insufficiency in lower extremities b/l * 04/30: venous duplex scan ordered, f/u 8. 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 Hepatitis C 04/30: Per Dr Pantoja: "Obtain autoimmune panel. No planned GI intervention for chronic HCV, she should be considered for outpatient elective treatment following resolution of acute symptoms. Will sign off case, please reconsult as necessary, thank you. 04/30: f/u mitochondrial antibodies and smooth muscle antibodies * hx of hep C, 04/29: hepatitic C reactive, GI consulted - Dr Pantoja * not on treatment * HIV 1&2, Hepatitis panel * 10. Elevated LFTs 04/30: Likely 2/2 Hep C or likely 2/2 Aztreonam. Trend LFTs going forward. 11. Hypotension 05/02: gave 500 ml bolus NS for low BP 12. Prophylactic Measure 05/02: PT eval and treat because patient was complaining of musculoskeletal aches and pain * protonix 40 mg IVQ daily for GI ppx * Heparin 5000 units sc q8h * florastor 250 mg po bid * consistent carb diet * discontinued D51/2 NS 100cc/hr <Da Dewitt - Last Filed: 05/02/17 19:38> Objective - Vital Signs/Intake and Output Vital Signs (last 24 hours): Temp Pulse Resp BP Pulse Ox 98.5 F 126 H 18 85/65 L 98 05/02/17 15:54 05/02/17 15:54 05/02/17 15:54 05/02/17 15:54 05/02/17 15:54 Intake and Output: 05/02/17 05/03/17 18:59 06:59 Intake Total 530 Balance 530 - Medications Medications: Current Medications Acetaminophen (Tylenol 325mg Tab) 650 mg PO Q6 PRN PRN Reason: Pain, moderate (4-7) Last Admin: 05/01/17 17:30 Dose: 650 mg Gabapentin (Neurontin) 800 mg PO DAILY [facility] Last Admin: 05/02/17 10:53 Dose: 800 mg Heparin Sodium (Porcine) (Heparin) 5,000 units SC Q8 [facility] Last Admin: 05/02/17 13:21 Dose: 5,000 units Tigecycline 50 mg/ Sodium (Chloride) 100 mls @ 100 mls/hr IVPB Q12H [facility] Last Admin: 05/02/17 17:48 Dose: 100 mls/hr Gentamicin Sulfate/Sodium Chloride (Gentamicin 60mg/50ml Ns) 60 mg in 50 mls @ 100 mls/hr IVPB Q8 [facility] Last Admin: 05/02/17 14:42 Dose: 100 mls/hr Insulin Aspart (Novolog) 0 unit SC ACHS [facility] PRN Reason: Protocol Last Admin: 05/02/17 17:24 Dose: Not Given Insulin Aspart (Novolog) 34 unit SC AC [facility] Last Admin: 05/02/17 17:26 Dose: Not Given Insulin Glargine (Lantus) 80 unit SC HS [facility] Lisinopril (Zestril) 10 mg PO DAILY [facility] Last Admin: 05/02/17 10:54 Dose: 10 mg Methadone HCl (Methadose) 200 mg PO DAILY@0800 [facility] Last Admin: 05/02/17 08:19 Dose: 200 mg Pantoprazole Sodium (Protonix Inj) 40 mg IVP DAILY [facility] Last Admin: 05/02/17 10:54 Dose: 40 mg Quetiapine Fumarate (Seroquel) 100 mg PO BID [facility] Last Admin: 05/02/17 17:48 Dose: 100 mg Saccharomyces Boulardii (Florastor) 250 mg PO BID [facility] Last Admin: 05/02/17 17:48 Dose: 250 mg Zolpidem Tartrate (Ambien) 5 mg PO HS PRN PRN Reason: Insomnia Last Admin: 04/30/17 22:16 Dose: 5 mg - Labs Labs: 05/02/17 07:24 05/02/17 07:24 PT 12.6 SECONDS (9.7-12.2) H 04/29/17 08:09 INR 1.1 04/29/17 08:09 Attending/Attestation - Attestation I have personally seen and examined this patient.: Yes I have fully participated in the care of the patient.: Yes I have reviewed all pertinent clinical information, including history, physical exam and plan: Yes Notes (Text): 05/02/17 19:34 Patient was seen and examined at 4:45 PM 05/02/17 655 Exam, Assessment and Plan were thoroughly gone over with the Resident. Please note that the patient is also on Gentamycin 60 mg IV Q8H to cover the Enterbacter (+) Blood Culture. Patient's blood glucose is not under control and Endocrine Dr. Mitchell has made changes to insulin regimen as noted above. However, upon questioning patient today to make sure that she was only eating the diet prescribed for her, she stated that she was mostly eating "[employer] and shit" that her family was bringing her. I explained to her the importance of controlling the blood glucose to help fight the infections in her blood as well as her urine and that the more uncontrolled the blood glucose was, the more difficult to fight these infections. She expressed understanding. Da Dewitt D.O.
[2017-05-02] MEDS: Saccharomyces Boulardi 250 mg Cap PO SCH ×2 (10:54→17:48)
[2017-05-02] MEDS ORDERED: Sodium Chloride 0.9% 500 ML IV ONE (16:28)
[2017-05-02] MEDS: (Lantus) Insulin Glargine, Recombinant SC SCH (21:57)
[2017-05-03] MEDS: Gentamicin 60mg/50ml NS 60 MG/50 ML BAG IVPB SCH ×3 (07:00→22:20)
--- NOTE | 2017-05-03 07:41 | CP.PCM.PN ---
<Dony Brown - Last Filed: 05/03/17 19:25> Subjective - Date & Time of Evaluation Date of Evaluation: 05/03/17 Time of Evaluation: 07:50 - Subjective Subjective: Patient was seen and examined at bedside. I saw her in the hospital lobby last night waiting for a friend to bring her ice cream so we discussed the importance of adhering to her low sugar diet in the context of diabetes. She nodded her head. She said she felt well and had no complaints today. She denied chest pain, dysuria, abdominal pain, headache, nausea, vomiting, diarrhea, fever , dizziness. Objective - Vital Signs/Intake and Output Vital Signs (last 24 hours): Temp Pulse Resp BP Pulse Ox 98.3 F 81 20 144/96 H 98 05/02/17 23:30 05/02/17 23:30 05/02/17 23:30 05/02/17 23:30 05/02/17 23:30 - Medications Medications: Current Medications Acetaminophen (Tylenol 325mg Tab) 650 mg PO Q6 PRN PRN Reason: Pain, moderate (4-7) Last Admin: 05/01/17 17:30 Dose: 650 mg Gabapentin (Neurontin) 800 mg PO DAILY [facility] Last Admin: 05/02/17 10:53 Dose: 800 mg Heparin Sodium (Porcine) (Heparin) 5,000 units SC Q8 [facility] Last Admin: 05/03/17 05:53 Dose: Not Given Tigecycline 50 mg/ Sodium (Chloride) 100 mls @ 100 mls/hr IVPB Q12H [facility] Last Admin: 05/03/17 05:48 Dose: 100 mls/hr Gentamicin Sulfate/Sodium Chloride (Gentamicin 60mg/50ml Ns) 60 mg in 50 mls @ 100 mls/hr IVPB Q8 [facility] Last Admin: 05/02/17 21:57 Dose: 100 mls/hr Insulin Aspart (Novolog) 0 unit SC ACHS NICHOL PRN Reason: Protocol Last Admin: 05/02/17 17:24 Dose: Not Given Insulin Aspart (Novolog) 34 unit SC AC [facility] Last Admin: 05/02/17 17:26 Dose: Not Given Insulin Glargine (Lantus) 80 unit SC HS [facility] Last Admin: 05/02/17 21:57 Dose: 80 unit Lisinopril (Zestril) 10 mg PO DAILY [facility] Last Admin: 05/02/17 10:54 Dose: 10 mg Methadone HCl (Methadose) 200 mg PO DAILY@0800 [facility] Last Admin: 05/02/17 08:19 Dose: 200 mg Pantoprazole Sodium (Protonix Ec Tab) 40 mg PO DAILY [facility] Quetiapine Fumarate (Seroquel) 100 mg PO BID [facility] Last Admin: 05/02/17 17:48 Dose: 100 mg Saccharomyces Boulardii (Florastor) 250 mg PO BID [facility] Last Admin: 05/02/17 17:48 Dose: 250 mg Zolpidem Tartrate (Ambien) 5 mg PO HS PRN PRN Reason: Insomnia Last Admin: 05/02/17 21:57 Dose: 5 mg - Labs Labs: 05/02/17 07:24 05/02/17 07:24 PT 12.6 SECONDS (9.7-12.2) H 04/29/17 08:09 INR 1.1 04/29/17 08:09 - Constitutional Appears: Well - Head Exam Head Exam: ATRAUMATIC, NORMAL INSPECTION, NORMOCEPHALIC - Eye Exam Eye Exam: EOMI, Normal appearance, PERRL - ENT Exam ENT Exam: Mucous Membranes Moist - Neck Exam Neck Exam: Full ROM - Respiratory Exam Respiratory Exam: Clear to Ausculation Bilateral, NORMAL BREATHING PATTERN - Cardiovascular Exam Cardiovascular Exam: REGULAR RHYTHM, +S1, +S2. absent: Murmur - GI/Abdominal Exam GI & Abdominal Exam: Soft, Normal Bowel Sounds. absent: Tenderness - Rectal Exam Rectal Exam: Deferred - Extremities Exam Extremities Exam: Full ROM, Normal Capillary Refill, Normal Inspection. absent : Joint Swelling, Pedal Edema - Neurological Exam Neurological Exam: Alert, Awake, Oriented x3 - Psychiatric Exam Psychiatric exam: Normal Affect, Normal Mood - Skin Skin Exam: Dry, Intact, Normal Color, Warm Assessment and Plan - Assessment and Plan (Free Text) Assessment: 1. Complicated Urinary Tract Infection 05/03: No ova and parasite seen in stool collection 05/02: Blood culture shows enterobacter 05/01: waiting for blood culture organism identification 04/30: started genamicin 60mg iv q8 04/30: started tigecycline 50mg iv q12 as it is sensitive for e coli in urine 04/30: stopped aztreonam 2g IV q12 04/30: stopped cefepime as it is resistant for e coli in urine 04/28: urine culture -> e coli 04/28: blood culture x2 -> gram negative rods 04/28: CXR: no active disease * suspicion for emphysematous cystitis * CT scan (04/28/17): moderate amount of air in urinary bladder, emphysematous cystitis cannot be excluded (further details available on the EMR) * Urology Consult, Dr. Kateryna Rangel, help appreciated * ID consult, Dr. Payne, help appreciated--f/u given questionable PCN allergy * 04/28: UA -> positive for glucose, ketones, urobilinogen, leukocyte esterase, wbc, rbc, epith cells, bacteria * IV abx: Aztreonam 2 g IV q8h * IV abx: cefepime 2gm IV q12 * Ordered for STD testing given patient is sexually active, no condoms, and prior history of prostitution: gonorrhea, chlamydia * 04/29: AMS, Head CT ordered: 1. No definite acute intracranial abnormality. Acute infarction may be CT occult within first 24 hours. If a focal deficit persists, consider followup CT or MRI for further evaluation. 2. Incidental/ non-acute findings are described above. * Florastor 250mg PO BID 2. Abdominal Pain * amylase: normal; lipase: normal * CT scan (04/28/17): enlarged liver with diffuse fatty infiltration and mild intrahepatic biliary ductal dilation, distended gallbladder, appendix 8.8mm ( further details available in the EMR) * Abdominal U/S ordered -RUQ pain; patient has negative James's sign on exam * 04/29: Abd Ultrasound: Cholelithiasis without sonographic evidence of cholecystitis. Mild hepatomegaly with fatty infiltration. No additional abnormality. * General surgery, Dr. Dodd, help appreciated-->for further evaluation 3. Questionable Penicillin Allergy * f/u with PMD, Dr. Parrish, regarding confirmation of patient's allergy * Given: solumedrol 40 mg iv x1, Benadryl 25mg x1, Pepcid 20 mg iv x1 in light of receiving Rocephin in the ED; patient denies pruritus; swelling nor oropharyngeal involvement * Patient reports she has tolerated Amoxicillin/Augmentin in the past 4. Uncontrolled Diabetes 05/02: Dr Mitchell adjusted insulin regimen today. novolog 34 u sc ac. lantus 80 u sc hs. 05/01: adjusted insulin regimen today. novolog 25 u sc ac. lantus 56 u sc hs. * HbA1c 16.6 * 04/30: Triglycerides 158, Cholesterol 119, LDL pending, HDL 23 * Accucheck q6 hours * discontinued: D5/ NS 100 cc/ hour * Lantus 25 units q daily (patient took this morning) * Novolog sliding scale (low) subq * Hold metformin on admission * Neurontin 800mg PO daily 5. Hypertension * f/u pharmacy to confirm meds; patient cannot recall medication * monitor vitals * lisinopril 10mg po daily 6. History of Bipolar disorder and PTSD * Patient started on low dose Seroquel 25mg po daily until her actual dose is confirmed in the AM * f/u pharmacy to confirm * psychiatry following, per Dr Rodriguez: Mood disorder CBT Psychoeducation Supportive therapy, group therapy, individual therapy Seroquel 25 mg pO Daily Neurontin 100 mg po TID 7. Leg Pain 05/02: started tylenol 650mg q6 prn. Will not give narcotics for leg pain as she is already takes methadone. * CPK is low * 04/29: Lower extremity ultrasound -> No evidence of hemodynamically significant arterial insufficiency in lower extremities b/l * 04/30: venous duplex scan ordered, f/u 8. Opioid use in sustained remission * On maintenance therapy - Will confirm with [facility] clin in [place] for Methadone dose * 04/29: Spoke with Pt's nut sorter operator Areli at [facility] who verified 200mg methadone dose every morning * No narcotic medications * Has been sober for 4 years; on methadone maintenance * psychiatry following, per dr Rodriguez: CBT Psychoeducation Supportive therapy, individual therapy Clonidine when necessary Methadone 200 mg PO Daily (dose verified) 9. Hepatitis C 04/30: Per Dr Pantoja: "Obtain autoimmune panel. No planned GI intervention for chronic HCV, she should be considered for outpatient elective treatment following resolution of acute symptoms. Will sign off case, please reconsult as necessary, thank you. 04/30: f/u mitochondrial antibodies and smooth muscle antibodies * hx of hep C, 04/29: hepatitic C reactive, GI consulted - Dr Pantoja * not on treatment * HIV 1&2, Hepatitis panel * 10. Elevated LFTs 04/30: Likely 2/2 Hep C or likely 2/2 Aztreonam. Trend LFTs going forward. 11. Hypotension 05/02: gave 500 ml bolus NS for low BP 12. Prophylactic Measure 05/02: PT eval and treat because patient was complaining of musculoskeletal aches and pain * protonix 40 mg IVQ daily for GI ppx * Heparin 5000 units sc q8h * florastor 250 mg po bid * consistent carb diet * discontinued D51/2 NS 100cc/hr <Da Dewitt - Last Filed: 05/03/17 19:54> Objective - Vital Signs/Intake and Output Vital Signs (last 24 hours): Temp Pulse Resp BP Pulse Ox 98.5 F 73 18 120/85 98 05/03/17 15:36 05/03/17 15:36 05/03/17 15:36 05/03/17 15:36 05/03/17 15:36 Intake and Output: 05/03/17 05/04/17 18:59 06:59 Intake Total 550 Balance 550 - Medications Medications: Current Medications Acetaminophen (Tylenol 325mg Tab) 650 mg PO Q6 PRN PRN Reason: Pain, moderate (4-7) Last Admin: 05/03/17 16:12 Dose: 650 mg Gabapentin (Neurontin) 800 mg PO DAILY [facility] Last Admin: 05/03/17 10:36 Dose: 800 mg Heparin Sodium (Porcine) (Heparin) 5,000 units SC Q8 [facility] Last Admin: 05/03/17 13:15 Dose: 5,000 units Tigecycline 50 mg/ Sodium (Chloride) 100 mls @ 100 mls/hr IVPB Q12H [facility] Last Admin: 05/03/17 17:56 Dose: 100 mls/hr Gentamicin Sulfate/Sodium Chloride (Gentamicin 60mg/50ml Ns) 60 mg in 50 mls @ 100 mls/hr IVPB Q8 [facility] Last Admin: 05/03/17 13:15 Dose: 100 mls/hr Insulin Aspart (Novolog) 0 unit SC ACHS NICHOL PRN Reason: Protocol Last Admin: 05/03/17 17:56 Dose: Not Given Insulin Aspart (Novolog) 34 unit SC AC [facility] Last Admin: 05/03/17 17:56 Dose: 34 unit Insulin Glargine (Lantus) 80 unit SC HS [facility] Last Admin: 05/02/17 21:57 Dose: 80 unit Lisinopril (Zestril) 10 mg PO DAILY [facility] Last Admin: 05/03/17 10:36 Dose: 10 mg Methadone HCl (Methadose) 200 mg PO DAILY@0800 [facility] Last Admin: 05/03/17 08:12 Dose: 200 mg Pantoprazole Sodium (Protonix Ec Tab) 40 mg PO DAILY [facility] Last Admin: 05/03/17 10:36 Dose: 40 mg Quetiapine Fumarate (Seroquel) 100 mg PO BID [facility] Last Admin: 05/03/17 17:56 Dose: 100 mg Saccharomyces Boulardii (Florastor) 250 mg PO BID [facility] Last Admin: 05/03/17 17:56 Dose: 250 mg Zolpidem Tartrate (Ambien) 5 mg PO HS PRN PRN Reason: Insomnia Last Admin: 05/02/17 21:57 Dose: 5 mg - Labs Labs: 05/03/17 07:20 05/03/17 07:20 PT 12.6 SECONDS (9.7-12.2) H 04/29/17 08:09 INR 1.1 04/29/17 08:09 Attending/Attestation - Attestation I have personally seen and examined this patient.: Yes I have fully participated in the care of the patient.: Yes I have reviewed all pertinent clinical information, including history, physical exam and plan: Yes Notes (Text): 05/03/17 19:53 Patient was seen and examined at 6:45 PM Exam, assessment and plan were thoroughly gone over with the resident. Repeat Blood and Urine Culture 05/04/17. Da Dewitt D.O.
[2017-05-03 07:43] LABS: BASO % 0.7 % (0.0-2.0); EOS # 0.2 K/uL (0.0-0.7); EOS % 4.6 % (0.0-4.0); HEMOGLOBIN 13.6 g/dL (11.0-16.0); LYMPH # 2.3 K/uL (1.0-4.3); LYMPH % 42.6 % (20.0-40.0); MEAN CELL VOLUME 90.5 fL (81.0-99.0); MEAN CORPUSCULAR HEMOGLOBIN 30.1 pg (27.0-31.0); MEAN CORPUSCULAR HGB CONC 33.3 g/dL (33.0-37.0); MEAN PLATELET VOLUME 9.8 fL (7.2-11.7); MONO # 0.6 K/uL (0.0-0.8); MONO % 10.9 % (0.0-10.0); NEUT # 2.2 K/uL (1.8-7.0); NEUT % 41.2 % (50.0-75.0); NRBC % 0.1 % (0.0-2.0); RBC 4.51 Mil/uL (3.80-5.20); RED CELL DISTRIBUTION WIDTH 12.7 % (11.5-14.5); WHITE BLOOD COUNT 5.3 K/uL (4.8-10.8)
[2017-05-03 07:48] LABS: ALB/GLOB RATIO 0.9 (1.0-2.1); ALT/SGPT 139 U/L (9-52); AST/SGOT 135 U/L (14-36); BLOOD UREA NITROGEN 15 mg/dL (7-17); CALCIUM 8.4 mg/dl (8.6-10.4); GFR AFRICAN-AMERICAN > 60; GFR NON-AFRICAN AMERICAN > 60; MAGNESIUM 1.6 mg/dL (1.6-2.3)
[2017-05-03] MEDS: (Novolog) Insulin Aspart, Recombinant 100 u/ml 10 ml vial SC SCH ×7 (08:11→22:02)
[2017-05-03] MEDS: Methadone 40 mg Tab PO SCH (08:12)
[2017-05-03] MEDS: Pantoprazole 40 mg EC Tab PO SCH (10:36)
[2017-05-03] MEDS: Saccharomyces Boulardi 250 mg Cap PO SCH ×2 (10:36→17:56)
--- NOTE | 2017-05-03 14:09 | PCM.URO ---
Urology Progress Note - General General: No Complaints, Tolerating Diet - Subjective Abdominal Pain: No Flank Pain: No Nausea: No Vomiting: No Voiding Well: Yes Dysuria: No Hematuria: No Good Stream: Yes - Objective Lab Results Last 24 Hours: Laboratory Results - last 24 hr 04/30/17 05/02/17 05/02/17 17:56 16:34 21:21 WBC RBC Hgb Hct MCV MCH MCHC RDW Plt Count MPV Neut % (Auto) Lymph % (Auto) Burt % (Auto) Eos % (Auto) Baso % (Auto) Neut # Lymph # Burt # Eos # Baso # Sodium Potassium Chloride Carbon Dioxide Anion Gap BUN Creatinine Est GFR ( Amer) Est GFR (Non-Af Amer) POC Glucose (mg/dL) 138 H 334 H Random Glucose Calcium Phosphorus Magnesium Total Bilirubin AST ALT Alkaline Phosphatase Total Protein Albumin Globulin Albumin/Globulin Ratio Anti-Mitochondrial Ab Negative Anti-Smooth Muscle Ab Negative 05/03/17 05/03/17 05/03/17 02:14 06:07 07:20 WBC 5.3 RBC 4.51 Hgb 13.6 Hct 40.8 MCV 90.5 MCH 30.1 MCHC 33.3 RDW 12.7 Plt Count 108 L MPV 9.8 Neut % (Auto) 41.2 L Lymph % (Auto) 42.6 H Burt % (Auto) 10.9 H Eos % (Auto) 4.6 H Baso % (Auto) 0.7 Neut # 2.2 Lymph # 2.3 Burt # 0.6 Eos # 0.2 Baso # 0.0 Sodium Potassium Chloride Carbon Dioxide Anion Gap BUN Creatinine Est GFR ( Amer) Est GFR (Non-Af Amer) POC Glucose (mg/dL) 290 H 322 H Random Glucose Calcium Phosphorus Magnesium Total Bilirubin AST ALT Alkaline Phosphatase Total Protein Albumin Globulin Albumin/Globulin Ratio Anti-Mitochondrial Ab Anti-Smooth Muscle Ab 05/03/17 05/03/17 07:20 11:14 WBC RBC Hgb Hct MCV MCH MCHC RDW Plt Count MPV Neut % (Auto) Lymph % (Auto) Burt % (Auto) Eos % (Auto) Baso % (Auto) Neut # Lymph # Burt # Eos # Baso # Sodium 132 Potassium 4.3 Chloride 98 Carbon Dioxide 26 Anion Gap 13 BUN 15 Creatinine 0.5 L Est GFR ( Amer) > 60 Est GFR (Non-Af Amer) > 60 POC Glucose (mg/dL) 70 Random Glucose 311 H Calcium 8.4 L Phosphorus 3.4 Magnesium 1.6 Total Bilirubin 0.8 AST 135 H ALT 139 H Alkaline Phosphatase 216 H Total Protein 6.3 Albumin 3.0 L Globulin 3.2 Albumin/Globulin Ratio 0.9 L Anti-Mitochondrial Ab Anti-Smooth Muscle Ab Intake & Output: Intake & Output 05/02/17 05/03/17 05/03/17 18:59 06:59 18:59 Intake Total 530 Balance 530 Intake: Intake, IV Amount 50 Left Hand 50 Oral 480 Other: # Voids Urine, Voided 3 Vital Signs: Vital Signs - 24 hr 05/02/17 05/02/17 05/03/17 15:54 23:30 07:35 Temperature 98.5 F 98.3 F 98.3 F Pulse Rate 126 H 81 68 Respiratory 18 20 18 Rate Blood Pressure 85/65 L 144/96 H 138/90 O2 Sat by Pulse 98 98 98 Oximetry - Physical Exam Abdominal Exam: Soft, Non-Tender, Non-Distended Back: No CVA Tenderness Urine Color: Clear, Yellow - Plan Additional Information: Imp: cystitis, improved. Progressing well urologically - Date & Time of Note Date: 05/03/17 Time: 10:30
--- NOTE | 2017-05-03 14:56 | PN ---
DATE: 05/02/2017 ROOM: 655 SUBJECTIVE: This is a 46-year-old female with recent uncontrolled type-2 insulin requiring diabetes now being followed closely for metabolic management. Her glycemic accelerations have declined and improved accordingly as noted. However, today the glucose values are much higher with glucose levels raising from 302 to 319 and 335 mg per dL. Her latest chemistry showed BUN of 16, sodium 138, potassium 4.0, chloride 103, CO2 of 26, glucose 320 and creatinine 0.5, so at this time, we will modify once again her basal and bolus insulin regimen and increase the NovoLog to 34 units subcu t.i.d. before meals to start at dinner time today as ordered. We will also increase the basal insulin with Lantus to be given at 80 units subcu at bedtime daily to start tonight. We will continue the low-dose correction scale using NovoLog insulin as given. We will obtain serial of chemistries and supplement accordingly as needed. We will follow and advice accordingly. Colleen Mitchell MD
--- NOTE | 2017-05-03 19:48 | CP.PCM.PN ---
Subjective - Date & Time of Evaluation Date of Evaluation: 05/03/17 Time of Evaluation: 02:20 - Subjective Subjective: dictated Objective - Vital Signs/Intake and Output Vital Signs (last 24 hours): Temp Pulse Resp BP Pulse Ox 98.5 F 73 18 120/85 98 05/03/17 15:36 05/03/17 15:36 05/03/17 15:36 05/03/17 15:36 05/03/17 15:36 Intake and Output: 05/03/17 05/04/17 18:59 06:59 Intake Total 550 Balance 550 - Medications Medications: Current Medications Acetaminophen (Tylenol 325mg Tab) 650 mg PO Q6 PRN PRN Reason: Pain, moderate (4-7) Last Admin: 05/03/17 16:12 Dose: 650 mg Gabapentin (Neurontin) 800 mg PO DAILY [facility] Last Admin: 05/03/17 10:36 Dose: 800 mg Heparin Sodium (Porcine) (Heparin) 5,000 units SC Q8 [facility] Last Admin: 05/03/17 13:15 Dose: 5,000 units Tigecycline 50 mg/ Sodium (Chloride) 100 mls @ 100 mls/hr IVPB Q12H [facility] Last Admin: 05/03/17 17:56 Dose: 100 mls/hr Gentamicin Sulfate/Sodium Chloride (Gentamicin 60mg/50ml Ns) 60 mg in 50 mls @ 100 mls/hr IVPB Q8 [facility] Last Admin: 05/03/17 13:15 Dose: 100 mls/hr Insulin Aspart (Novolog) 0 unit SC ACHS NICHOL PRN Reason: Protocol Last Admin: 05/03/17 17:56 Dose: Not Given Insulin Aspart (Novolog) 34 unit SC AC [facility] Last Admin: 05/03/17 17:56 Dose: 34 unit Insulin Glargine (Lantus) 80 unit SC HS [facility] Last Admin: 05/02/17 21:57 Dose: 80 unit Lisinopril (Zestril) 10 mg PO DAILY [facility] Last Admin: 05/03/17 10:36 Dose: 10 mg Methadone HCl (Methadose) 200 mg PO DAILY@0800 [facility] Last Admin: 05/03/17 08:12 Dose: 200 mg Pantoprazole Sodium (Protonix Ec Tab) 40 mg PO DAILY [facility] Last Admin: 05/03/17 10:36 Dose: 40 mg Quetiapine Fumarate (Seroquel) 100 mg PO BID [facility] Last Admin: 05/03/17 17:56 Dose: 100 mg Saccharomyces Boulardii (Florastor) 250 mg PO BID [facility] Last Admin: 05/03/17 17:56 Dose: 250 mg Zolpidem Tartrate (Ambien) 5 mg PO HS PRN PRN Reason: Insomnia Last Admin: 05/02/17 21:57 Dose: 5 mg - Labs Labs: 05/03/17 07:20 05/03/17 07:20 PT 12.6 SECONDS (9.7-12.2) H 04/29/17 08:09 INR 1.1 04/29/17 08:09 - Constitutional Appears: No Acute Distress - Head Exam Head Exam: NORMAL INSPECTION, NORMOCEPHALIC - Eye Exam Eye Exam: Normal appearance Pupil Exam: NORMAL ACCOMODATION - ENT Exam ENT Exam: Mucous Membranes Moist - Neck Exam Neck Exam: Normal Inspection - Respiratory Exam Respiratory Exam: Clear to Ausculation Bilateral, NORMAL BREATHING PATTERN - Cardiovascular Exam Cardiovascular Exam: REGULAR RHYTHM, RRR. absent: Bradycardia, Tachycardia, Clicks, Diastolic murmur, Gallop, Irregular Rhythm, JVD, Rubs, +S1, +S2, +S4, Murmur - GI/Abdominal Exam GI & Abdominal Exam: Soft, Normal Bowel Sounds. absent: Bruit, Distended, Firm , Guarding, Rigid, Tenderness, Diminished Bowel Sounds, Hernia, Hyperactive Bowel Sounds, Hypoactive Bowel Sounds, Organomegaly, Pulsatile Mass, Rebound, Mass - Extremities Exam Extremities Exam: Normal Inspection. absent: Calf Tenderness, Full ROM, Joint Swelling, Normal Capillary Refill, Pedal Edema, Tenderness - Back Exam Back Exam: absent: CVA tenderness (L), CVA tenderness (R), Full ROM, muscle spasm, NORMAL INSPECTION, paraspinal tenderness, rash noted, tenderness, vertebral tenderness Assessment and Plan (1) Escherichia coli septicemia Assessment & Plan: patient needs repeat blood and urine culture.follow up with urology noted Status: Acute (2) Hepatitis C Status: Acute (3) Hepatitis C antibody positive in blood Status: Acute (4) Cystitis Status: Acute (5) Uncontrolled diabetes mellitus Status: Acute (6) ESBL (extended spectrum beta-lactamase) producing bacteria infection Status: Acute - Assessment and Plan (Free Text) Assessment: will continue medications and check blood and urine culture pt needs total 2 weeks of treatment dc gentamicin soon
[2017-05-03] MEDS: (Lantus) Insulin Glargine, Recombinant SC SCH (22:19)
[2017-05-04] MEDS: Gentamicin 60mg/50ml NS 60 MG/50 ML BAG IVPB SCH ×3 (06:08→21:42)
[2017-05-04 06:51] LABS: BASO % 0.8 % (0.0-2.0); EOS # 0.2 K/uL (0.0-0.7); HEMOGLOBIN 13.5 g/dL (11.0-16.0); LYMPH # 2.5 K/uL (1.0-4.3); LYMPH % 47.8 % (20.0-40.0); MEAN CELL VOLUME 90.4 fL (81.0-99.0); MEAN CORPUSCULAR HGB CONC 33.2 g/dL (33.0-37.0); MEAN PLATELET VOLUME 9.9 fL (7.2-11.7); MONO # 0.5 K/uL (0.0-0.8); NEUT # 1.9 K/uL (1.8-7.0); NEUT % 37.4 % (50.0-75.0); NRBC % 0.1 % (0.0-2.0); RBC 4.51 Mil/uL (3.80-5.20); RED CELL DISTRIBUTION WIDTH 12.6 % (11.5-14.5); WHITE BLOOD COUNT 5.2 K/uL (4.8-10.8)
[2017-05-04 07:01] LABS: SQUAMOUS EPITHIAL < 1 /hpf (0-5); URINE BILIRUBIN NEGATIVE (NEGATIVE); URINE BLOOD NEGATIVE (NEGATIVE); URINE CLARITY Clear (Clear); URINE COLOR Yellow (YELLOW); URINE GLUCOSE (UA) 3+ mg/dL (Normal); URINE LEUKOCYTE ESTERASE NEG Leu/uL (Negative); URINE NITRATE NEGATIVE (NEGATIVE); URINE PROTEIN NEGATIVE (NEGATIVE); URINE UROBILINOGEN NORMAL mg/dL (0.2-1.0)
[2017-05-04 07:11] LABS: ALBUMIN 2.9 g/dL (3.5-5.0)
[2017-05-04 07:14] LABS: ALB/GLOB RATIO 0.9 (1.0-2.1); AST/SGOT 109 U/L (14-36); GFR AFRICAN-AMERICAN > 60; GFR NON-AFRICAN AMERICAN > 60
[2017-05-04 07:15] LABS: ALT/SGPT 126 U/L (9-52); BLOOD UREA NITROGEN 13 mg/dL (7-17); CALCIUM 8.8 mg/dl (8.6-10.4); MAGNESIUM 1.6 mg/dL (1.6-2.3)
--- NOTE | 2017-05-04 07:45 | CP.PCM.PN ---
<Dony Brown - Last Filed: 05/04/17 07:44> Subjective - Date & Time of Evaluation Date of Evaluation: 05/04/17 Time of Evaluation: 08:00 - Subjective Subjective: Patient was seen and examined at bedside. Objective - Vital Signs/Intake and Output Vital Signs (last 24 hours): Temp Pulse Resp BP Pulse Ox 98.4 F 83 20 135/97 H 98 05/04/17 07:00 05/04/17 07:00 05/04/17 07:00 05/04/17 07:00 05/04/17 07:00 - Medications Medications: Current Medications Acetaminophen (Tylenol 325mg Tab) 650 mg PO Q6 PRN PRN Reason: Pain, moderate (4-7) Last Admin: 05/03/17 16:12 Dose: 650 mg Gabapentin (Neurontin) 800 mg PO DAILY [facility] Last Admin: 05/03/17 10:36 Dose: 800 mg Heparin Sodium (Porcine) (Heparin) 5,000 units SC Q8 [facility] [place] Last Admin: 05/04/17 06:09 Dose: 5,000 units Tigecycline 50 mg/ Sodium (Chloride) 100 mls @ 100 mls/hr IVPB Q12H [facility] [place] Last Admin: 05/04/17 04:56 Dose: 100 mls/hr Gentamicin Sulfate/Sodium Chloride (Gentamicin 60mg/50ml Ns) 60 mg in 50 mls @ 100 mls/hr IVPB Q8 [facility] [place] Last Admin: 05/04/17 06:08 Dose: 100 mls/hr Insulin Aspart (Novolog) 0 unit SC ACHS NICHOL PRN Reason: Protocol Last Admin: 05/03/17 22:02 Dose: Not Given Insulin Aspart (Novolog) 34 unit SC AC [facility] [place] Last Admin: 05/03/17 17:56 Dose: 34 unit Insulin Glargine (Lantus) 80 unit SC HS [facility] [place] Last Admin: 05/03/17 22:19 Dose: 80 unit Lisinopril (Zestril) 10 mg PO DAILY [facility] [place] Last Admin: 05/03/17 10:36 Dose: 10 mg Methadone HCl (Methadose) 200 mg PO DAILY@0800 [facility] [place] Last Admin: 05/03/17 08:12 Dose: 200 mg Pantoprazole Sodium (Protonix Ec Tab) 40 mg PO DAILY [facility] [place] Last Admin: 05/03/17 10:36 Dose: 40 mg Quetiapine Fumarate (Seroquel) 100 mg PO BID [facility] [place] Last Admin: 05/03/17 17:56 Dose: 100 mg Saccharomyces Boulardii (Florastor) 250 mg PO BID [facility] [place] Last Admin: 05/03/17 17:56 Dose: 250 mg Zolpidem Tartrate (Ambien) 5 mg PO HS PRN PRN Reason: Insomnia Last Admin: 05/03/17 22:18 Dose: 5 mg - Labs Labs: 05/04/17 06:36 05/04/17 06:36 PT 12.6 SECONDS (9.7-12.2) H 04/29/17 08:09 INR 1.1 04/29/17 08:09 Assessment and Plan - Assessment and Plan (Free Text) Assessment: 1. Complicated Urinary Tract Infection 05/03: No ova and parasite seen in stool collection 05/02: Blood culture shows enterobacter 05/01: waiting for blood culture organism identification 04/30: started genamicin 60mg iv q8 04/30: started tigecycline 50mg iv q12 as it is sensitive for e coli in urine 04/30: stopped aztreonam 2g IV q12 04/30: stopped cefepime as it is resistant for e coli in urine 04/28: urine culture -> e coli 04/28: blood culture x2 -> gram negative rods 04/28: CXR: no active disease * suspicion for emphysematous cystitis * CT scan (04/28/17): moderate amount of air in urinary bladder, emphysematous cystitis cannot be excluded (further details available on the EMR) * Urology Consult, Dr. Kateryna Rangel, help appreciated * ID consult, Dr. Payne, help appreciated--f/u given questionable PCN allergy * 04/28: UA -> positive for glucose, ketones, urobilinogen, leukocyte esterase, wbc, rbc, epith cells, bacteria * IV abx: Aztreonam 2 g IV q8h * IV abx: cefepime 2gm IV q12 * Ordered for STD testing given patient is sexually active, no condoms, and prior history of prostitution: gonorrhea, chlamydia * 04/29: AMS, Head CT ordered: 1. No definite acute intracranial abnormality. Acute infarction may be CT occult within first 24 hours. If a focal deficit persists, consider followup CT or MRI for further evaluation. 2. Incidental/ non-acute findings are described above. * Florastor 250mg PO BID 2. Abdominal Pain * amylase: normal; lipase: normal * CT scan (04/28/17): enlarged liver with diffuse fatty infiltration and mild intrahepatic biliary ductal dilation, distended gallbladder, appendix 8.8mm ( further details available in the EMR) * Abdominal U/S ordered -RUQ pain; patient has negative James's sign on exam * 04/29: Abd Ultrasound: Cholelithiasis without sonographic evidence of cholecystitis. Mild hepatomegaly with fatty infiltration. No additional abnormality. * General surgery, Dr. Dodd, help appreciated-->for further evaluation 3. Questionable Penicillin Allergy * f/u with PMD, Dr. Parrish, regarding confirmation of patient's allergy * Given: solumedrol 40 mg iv x1, Benadryl 25mg x1, Pepcid 20 mg iv x1 in light of receiving Rocephin in the ED; patient denies pruritus; swelling nor oropharyngeal involvement * Patient reports she has tolerated Amoxicillin/Augmentin in the past 4. Uncontrolled Diabetes 05/02: Dr Mitchell adjusted insulin regimen today. novolog 34 u sc ac. lantus 80 u sc hs. 05/01: adjusted insulin regimen today. novolog 25 u sc ac. lantus 56 u sc hs. * HbA1c 16.6 * 04/30: Triglycerides 158, Cholesterol 119, LDL pending, HDL 23 * Accucheck q6 hours * discontinued: D51/2 NS 100 cc/ hour * Lantus 25 units q daily (patient took this morning) * Novolog sliding scale (low) subq * Hold metformin on admission * Neurontin 800mg PO daily 5. Hypertension * f/u pharmacy to confirm meds; patient cannot recall medication * monitor vitals * lisinopril 10mg po daily 6. History of Bipolar disorder and PTSD * Patient started on low dose Seroquel 25mg po daily until her actual dose is confirmed in the AM * f/u pharmacy to confirm * psychiatry following, per Dr Rodriguez: Mood disorder CBT Psychoeducation Supportive therapy, group therapy, individual therapy Seroquel 25 mg pO Daily Neurontin 100 mg po TID 7. Leg Pain 05/02: started tylenol 650mg q6 prn. Will not give narcotics for leg pain as she is already takes methadone. * CPK is low * 04/29: Lower extremity ultrasound -> No evidence of hemodynamically significant arterial insufficiency in lower extremities b/l * 04/30: venous duplex scan ordered, f/u 8. Opioid use in sustained remission * On maintenance therapy - Will confirm with [facility] clin in [place] for Methadone dose * 04/29: Spoke with Pt's coil winder hand Areli at [facility] who verified 200mg methadone dose every morning * No narcotic medications * Has been sober for 4 years; on methadone maintenance * psychiatry following, per dr Rodriguez: CBT Psychoeducation Supportive therapy, individual therapy Clonidine when necessary Methadone 200 mg PO Daily (dose verified) 9. Hepatitis C 04/30: Per Dr Pantoja: "Obtain autoimmune panel. No planned GI intervention for chronic HCV, she should be considered for outpatient elective treatment following resolution of acute symptoms. Will sign off case, please reconsult as necessary, thank you. 04/30: f/u mitochondrial antibodies and smooth muscle antibodies * hx of hep C, 04/29: hepatitic C reactive, GI consulted - Dr Pantoja * not on treatment * HIV 1&2, Hepatitis panel * 10. Elevated LFTs 04/30: Likely 2/2 Hep C or likely 2/2 Aztreonam. Trend LFTs going forward. 11. Hypotension 05/02: gave 500 ml bolus NS for low BP 12. Prophylactic Measure 05/02: PT eval and treat because patient was complaining of musculoskeletal aches and pain * protonix 40 mg IVQ daily for GI ppx * Heparin 5000 units sc q8h * florastor 250 mg po bid * consistent carb diet * discontinued D51/2 NS 100cc/hr <Da Dewitt - Last Filed: 05/04/17 19:58> Objective - Vital Signs/Intake and Output Vital Signs (last 24 hours): Temp Pulse Resp BP Pulse Ox 98.4 F 83 20 135/97 H 98 05/04/17 07:00 05/04/17 07:00 05/04/17 07:00 05/04/17 07:00 05/04/17 07:00 Intake and Output: 05/04/17 05/05/17 18:59 06:59 Intake Total 650 Balance 650 - Medications Medications: Current Medications Acetaminophen (Tylenol 325mg Tab) 650 mg PO Q6 PRN PRN Reason: Pain, moderate (4-7) Last Admin: 05/03/17 16:12 Dose: 650 mg Gabapentin (Neurontin) 800 mg PO DAILY [facility] [place] Last Admin: 05/04/17 09:28 Dose: 800 mg Heparin Sodium (Porcine) (Heparin) 5,000 units SC Q8 [facility] [place] Last Admin: 05/04/17 13:43 Dose: 5,000 units Tigecycline 50 mg/ Sodium (Chloride) 100 mls @ 100 mls/hr IVPB Q12H [facility] [place] Last Admin: 05/04/17 17:05 Dose: 100 mls/hr Gentamicin Sulfate/Sodium Chloride (Gentamicin 60mg/50ml Ns) 60 mg in 50 mls @ 100 mls/hr IVPB Q8 [facility] [place] Last Admin: 05/04/17 13:39 Dose: 100 mls/hr Insulin Aspart (Novolog) 0 unit SC ACHS NICHOL PRN Reason: Protocol Last Admin: 05/04/17 17:06 Dose: 4 unit Insulin Aspart (Novolog) 34 unit SC AC [facility] [place] Last Admin: 05/04/17 17:06 Dose: 34 unit Insulin Glargine (Lantus) 80 unit SC HS [facility] Last Admin: 05/03/17 22:19 Dose: 80 unit Lisinopril (Zestril) 10 mg PO DAILY [facility] Last Admin: 05/04/17 09:28 Dose: 10 mg Methadone HCl (Methadose) 200 mg PO DAILY@0800 [facility] Last Admin: 05/04/17 08:17 Dose: 200 mg Pantoprazole Sodium (Protonix Ec Tab) 40 mg PO DAILY [facility] [place] Last Admin: 05/04/17 09:28 Dose: 40 mg Quetiapine Fumarate (Seroquel) 100 mg PO BID [facility] [place] Last Admin: 05/04/17 17:06 Dose: 100 mg Saccharomyces Boulardii (Florastor) 250 mg PO BID [facility] [place] Last Admin: 05/04/17 17:06 Dose: 250 mg Zolpidem Tartrate (Ambien) 5 mg PO HS PRN PRN Reason: Insomnia Last Admin: 05/03/17 22:18 Dose: 5 mg - Labs Labs: 05/04/17 06:36 05/04/17 06:36 PT 12.6 SECONDS (9.7-12.2) H 04/29/17 08:09 INR 1.1 04/29/17 08:09 Attending/Attestation - Attestation I have personally seen and examined this patient.: Yes I have fully participated in the care of the patient.: Yes I have reviewed all pertinent clinical information, including history, physical exam and plan: Yes Notes (Text): 05/04/17 19:38 Patient was seen and examined at 1:20 PM 05/04/17 655 Patient is a 46 F with (PMH of DM, HTN, Hep C, heroin/cocain/alcohol abuser 4 years ago) who presented to the ED on 04/28/17 with bilateral leg pain, LLQ and RUQ abdominal pain since 2 days prior to her presentation, and urinary burning/ increased frequency that has been present on and off for the past 3 months. Venous Duplex of the legs was negative for DVT. Bladder U/S showed 53 ml post void residual otherwise unremarkable. Chest X Ray showed NO active disease. U/S Abdomen showed cholelithiasis without cholecystitis and mild hepatomegaly. Blood Culture 04/28/17 showed Enterobacter and Urine Culture 04/28/17 showed E. coli. Currently upon FULL ROS: Soft bowel movement today nonbloody/nonblack NO burning/pain with urination with decreased frequency NO abdominal pain NO n/v Bilateral Leg Pain (bilateral thigh soreness) has improved as she has been walking on the floor frequently as instructed by me NO other complaints upon FULL ROS HEENT: NCA, EOMI, PERRLA, NO thyromegaly, NO lymphadenopathy, NO pharyngeal erythema/exudate Cardio: NS1 and NS2, NO M/R/G Resp: CTA B/L, NO R/R/W GI: BS x 4, Soft, NT, ND, NO HSM, NO guarding/rebound tenderness Ext: Capillary refill is 2 seconds, NO edema, Pulses are strong and equal Neuro: CN II through XII are grossly intact Assessment and Plan: 1). UTI and Bacteremia Urine Culture 04/28/17 showed E. coli Blood Culture 04/28/17 showed Enterobacter Tigecycline 50 mg IV Q12H Gentamicin 60 [address] IV Q8H [address] Dr[address] Payne help is appreciated F/U repeat Blood and Urine Cultures 05/04/17 2). Hx Abdominal Pain Resolved See report U/S Abdomen 3). Uncontrolled DM Patient's family and friends were bringing her sugary food from outside Explained at length the need to control blood glucose in order to help fight the UTI and Bacteremia Lantus 80 units SC HS Aspart 34 units SC AC Meals Glucose has been better controlled with less elevations 4). Hx HTN Zestril 10 mg PO 1x/day Controlled 5). Hx Bipolar Disorder Seroquel 100 mg PO 2x/day 6). Hx Bilateral Thigh Pain Better with increased ambulation as explained in ROS above 7). Hx Opoid Abuse Methadone 200 PO 1x/day as confirmed with [facility] 8). Hx Hepatitis C Will need to follow up with GI as outpatient after discharge 9). Hx Elevated LFTs Trending down Continue to monitor 10). Prophylactic Measures Florastor 25 mg PO 2x/day Ambien 5 mg PO QHS Heparin 5,000 Units SC Q8H Please note that an order was placed that the patient is not to have visitors due to being notified that upon admission (prior to my taking care of patient), I was notified by nurse caring for patient that empty needle/syringe were found in patient room and then patient was acting inappropriately (masturbating in room). Also NO visitors as she continued to eat high surgary content foods despite explaining to her the reasons why the blood glucose needed to be controlled better as explained above. Da Dewitt D.O.
[2017-05-04] MEDS: Methadone 40 mg Tab PO SCH (08:17)
[2017-05-04] MEDS: (Novolog) Insulin Aspart, Recombinant 100 u/ml 10 ml vial SC SCH ×7 (08:18→21:50)
[2017-05-04] MEDS: Pantoprazole 40 mg EC Tab PO SCH (09:28)
[2017-05-04] MEDS: Saccharomyces Boulardi 250 mg Cap PO SCH ×2 (09:28→17:06)
[2017-05-04] MEDS ORDERED: (Lantus) Insulin Glargine, Recombinant SC SCH (22:00)
[2017-05-04] MEDS ORDERED: (Lantus) Insulin Glargine, Recombinant SC ONE (22:27)
[2017-05-05] MEDS: Gentamicin 60mg/50ml NS 60 MG/50 ML BAG IVPB SCH ×2 (06:01→13:10)
[2017-05-05] MEDS: Methadone 40 mg Tab PO SCH (07:04)
[2017-05-05 07:15] LABS: BASO # 0.1 K/uL (0.0-0.2); BASO % 0.9 % (0.0-2.0); EOS # 0.2 K/uL (0.0-0.7); EOS % 4.3 % (0.0-4.0); HEMOGLOBIN 13.7 g/dL (11.0-16.0); LYMPH # 2.6 K/uL (1.0-4.3); LYMPH % 47.9 % (20.0-40.0); MEAN CORPUSCULAR HEMOGLOBIN 30.1 pg (27.0-31.0); MEAN CORPUSCULAR HGB CONC 33.1 g/dL (33.0-37.0); MEAN PLATELET VOLUME 9.8 fL (7.2-11.7); MONO # 0.6 K/uL (0.0-0.8); MONO % 10.9 % (0.0-10.0); NRBC % 0.1 % (0.0-2.0); RBC 4.56 Mil/uL (3.80-5.20); RED CELL DISTRIBUTION WIDTH 12.9 % (11.5-14.5); WHITE BLOOD COUNT 5.5 K/uL (4.8-10.8)
[2017-05-05] MEDS ORDERED: (Novolog) Insulin Aspart, Recombinant 100 u/ml 10 ml vial SC SCH (07:30)
[2017-05-05 07:48] LABS: ALB/GLOB RATIO 0.9 (1.0-2.1); GFR AFRICAN-AMERICAN > 60; GFR NON-AFRICAN AMERICAN > 60
[2017-05-05 07:49] LABS: ALT/SGPT 127 U/L (9-52); AST/SGOT 120 U/L (14-36); BLOOD UREA NITROGEN 19 mg/dL (7-17)
[2017-05-05 07:50] LABS: MAGNESIUM 1.7 mg/dL (1.6-2.3)
[2017-05-05] MEDS: (Novolog) Insulin Aspart, Recombinant 100 u/ml 10 ml vial SC SCH ×7 (08:00→21:14)
--- NOTE | 2017-05-05 08:57 | CP.PCM.PN ---
<Dony Brown - Last Filed: 05/05/17 08:54> Subjective - Date & Time of Evaluation Date of Evaluation: 05/05/17 Time of Evaluation: 08:15 - Subjective Subjective: Patient was seen and examined at bedside. Objective - Vital Signs/Intake and Output Vital Signs (last 24 hours): Temp Pulse Resp BP Pulse Ox 98.0 F 72 20 130/92 H 95 05/05/17 00:00 05/05/17 00:00 05/05/17 00:00 05/05/17 00:00 05/05/17 00:00 Intake and Output: 05/05/17 05/05/17 06:59 18:59 Intake Total 650 Balance 650 - Medications Medications: Current Medications Acetaminophen (Tylenol 325mg Tab) 650 mg PO Q6 PRN PRN Reason: Pain, moderate (4-7) Last Admin: 05/04/17 22:57 Dose: 650 mg Gabapentin (Neurontin) 800 mg PO DAILY [facility] Last Admin: 05/04/17 09:28 Dose: 800 mg Heparin Sodium (Porcine) (Heparin) 5,000 units SC Q8 [facility] Last Admin: 05/05/17 05:59 Dose: 5,000 units Tigecycline 50 mg/ Sodium (Chloride) 100 mls @ 100 mls/hr IVPB Q12H [facility] Last Admin: 05/05/17 05:59 Dose: 100 mls/hr Gentamicin Sulfate/Sodium Chloride (Gentamicin 60mg/50ml Ns) 60 mg in 50 mls @ 100 mls/hr IVPB Q8 [facility] Last Admin: 05/05/17 06:01 Dose: 100 mls/hr Insulin Aspart (Novolog) 0 unit SC ACHS [facility] PRN Reason: Protocol Last Admin: 05/05/17 08:00 Dose: Not Given Insulin Aspart (Novolog) 20 unit SC AC [facility] Last Admin: 05/05/17 08:00 Dose: 20 unit Insulin Glargine (Lantus) 50 unit SC HS [facility] Lisinopril (Zestril) 10 mg PO DAILY [facility] Last Admin: 05/04/17 09:28 Dose: 10 mg Methadone HCl (Methadose) 200 mg PO DAILY@0800 [facility] Last Admin: 05/05/17 07:04 Dose: 200 mg Pantoprazole Sodium (Protonix Ec Tab) 40 mg PO DAILY [facility] Last Admin: 05/04/17 09:28 Dose: 40 mg Quetiapine Fumarate (Seroquel) 100 mg PO BID [facility] Last Admin: 05/04/17 17:06 Dose: 100 mg Saccharomyces Boulardii (Florastor) 250 mg PO BID [facility] Last Admin: 05/04/17 17:06 Dose: 250 mg Zolpidem Tartrate (Ambien) 5 mg PO HS PRN PRN Reason: Insomnia Last Admin: 05/03/17 22:18 Dose: 5 mg - Labs Labs: 05/05/17 07:08 05/05/17 07:08 PT 12.6 SECONDS (9.7-12.2) H 04/29/17 08:09 INR 1.1 04/29/17 08:09 - Constitutional Appears: Well, Non-toxic, No Acute Distress - Head Exam Head Exam: ATRAUMATIC, NORMAL INSPECTION, NORMOCEPHALIC - Eye Exam Eye Exam: EOMI, Normal appearance, PERRL - ENT Exam ENT Exam: Mucous Membranes Moist, Normal Exam - Neck Exam Neck Exam: Full ROM, Normal Inspection. absent: Lymphadenopathy - Respiratory Exam Respiratory Exam: Clear to Ausculation Bilateral, NORMAL BREATHING PATTERN - Cardiovascular Exam Cardiovascular Exam: REGULAR RHYTHM, +S1, +S2. absent: Murmur - GI/Abdominal Exam GI & Abdominal Exam: Soft, Normal Bowel Sounds. absent: Tenderness - Rectal Exam Rectal Exam: Deferred - Extremities Exam Extremities Exam: Full ROM, Normal Capillary Refill, Normal Inspection. absent : Joint Swelling, Pedal Edema - Neurological Exam Neurological Exam: Alert, Awake, Normal Gait, Oriented x3 - Psychiatric Exam Psychiatric exam: Normal Affect, Normal Mood - Skin Skin Exam: Dry, Intact, Normal Color, Warm Assessment and Plan - Assessment and Plan (Free Text) Assessment: 1. Complicated Urinary Tract Infection 05/05: Repeat Urine and Blood Cx negative to date. Rectum sample shows no ova or parasites. 05/03: No ova and parasite seen in stool collection 05/02: Blood culture shows enterobacter 05/01: waiting for blood culture organism identification 04/30: started genamicin 60mg iv q8 04/30: started tigecycline 50mg iv q12 as it is sensitive for e coli in urine 04/30: stopped aztreonam 2g IV q12 04/30: stopped cefepime as it is resistant for e coli in urine 04/28: urine culture -> e coli 04/28: blood culture x2 -> gram negative rods 04/28: CXR: no active disease * suspicion for emphysematous cystitis * CT scan (04/28/17): moderate amount of air in urinary bladder, emphysematous cystitis cannot be excluded (further details available on the EMR) * Urology Consult, Dr. Kateryna Rangel, help appreciated * ID consult, Dr. Payne, help appreciated--f/u given questionable PCN allergy * 04/28: UA -> positive for glucose, ketones, urobilinogen, leukocyte esterase, wbc, rbc, epith cells, bacteria * IV abx: Aztreonam 2 g IV q8h * IV abx: cefepime 2gm IV q12 * Ordered for STD testing given patient is sexually active, no condoms, and prior history of prostitution: gonorrhea, chlamydia * 04/29: AMS, Head CT ordered: 1. No definite acute intracranial abnormality. Acute infarction may be CT occult within first 24 hours. If a focal deficit persists, consider followup CT or MRI for further evaluation. 2. Incidental/ non-acute findings are described above. * Florastor 250mg PO BID 2. Abdominal Pain * amylase: normal; lipase: normal * CT scan (04/28/17): enlarged liver with diffuse fatty infiltration and mild intrahepatic biliary ductal dilation, distended gallbladder, appendix 8.8mm ( further details available in the EMR) * Abdominal U/S ordered -RUQ pain; patient has negative James's sign on exam * 04/29: Abd Ultrasound: Cholelithiasis without sonographic evidence of cholecystitis. Mild hepatomegaly with fatty infiltration. No additional abnormality. * General surgery, Dr. Dodd, help appreciated-->for further evaluation 3. Questionable Penicillin Allergy * f/u with PMD, Dr. Parrish, regarding confirmation of patient's allergy * Given: solumedrol 40 mg iv x1, Benadryl 25mg x1, Pepcid 20 mg iv x1 in light of receiving Rocephin in the ED; patient denies pruritus; swelling nor oropharyngeal involvement * Patient reports she has tolerated Amoxicillin/Augmentin in the past 4. Uncontrolled Diabetes 05/05: Patient's family and friends were bringing her sugary food from outside. Dr Dewitt explained at length the need to control blood glucose in order to help fight the UTI and Bacteremia 05/02: Dr Mitchell adjusted insulin regimen today. novolog 34 u sc ac. lantus 80 u sc hs. 05/01: adjusted insulin regimen today. novolog 25 u sc ac. lantus 56 u sc hs. * HbA1c 16.6 * 04/30: Triglycerides 158, Cholesterol 119, LDL pending, HDL 23 * Accucheck q6 hours * discontinued: D510/22 NS 100 cc/ hour * Lantus 25 units q daily (patient took this morning) * Novolog sliding scale (low) subq * Hold metformin on admission * Neurontin 800mg PO daily 5. Hypertension * monitor vitals * lisinopril 10mg po daily 6. History of Bipolar disorder and PTSD * psychiatry following, per Dr Rodriguez: Mood disorder CBT Psychoeducation Supportive therapy, group therapy, individual therapy Seroquel 100 mg pO 2x/Daily Neurontin 100 mg po TID 7. Leg Pain 05/05: Improving with increased ambulation 05/02: started tylenol 650mg q6 prn. Will not give narcotics for leg pain as she is already takes methadone. * CPK is low * 04/29: Lower extremity ultrasound -> No evidence of hemodynamically significant arterial insufficiency in lower extremities b/l * 04/30: venous duplex scan ordered, f/u 8. 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 Hepatitis C 04/30: Per Dr Pantoja: "Obtain autoimmune panel. No planned GI intervention for chronic HCV, she should be considered for outpatient elective treatment following resolution of acute symptoms. Will sign off case, please reconsult as necessary, thank you. 04/30: f/u mitochondrial antibodies and smooth muscle antibodies * hx of hep C, 04/29: hepatitic C reactive, GI consulted - Dr Pantoja * not on treatment * HIV 1&2, Hepatitis panel * 10. Elevated LFTs 04/30: Likely 2/2 Hep C or likely 2/2 Aztreonam. Trend LFTs going forward. 11. Hypotension 05/02: gave 500 ml bolus NS for low BP 12. Prophylactic Measure 05/02: PT eval and treat because patient was complaining of musculoskeletal aches and pain * protonix 40 mg IVQ daily for GI ppx * Heparin 5000 units sc q8h * florastor 250 mg po bid * consistent carb diet * discontinued D51/2 NS 100cc/hr <Da Dewitt - Last Filed: 05/05/17 20:57> Objective - Vital Signs/Intake and Output Vital Signs (last 24 hours): Temp Pulse Resp BP Pulse Ox 97.6 F 85 20 109/85 99 05/05/17 15:12 05/05/17 15:12 05/05/17 15:12 05/05/17 15:12 05/05/17 15:12 Intake and Output: 05/05/17 05/06/17 18:59 06:59 Intake Total 500 Balance 500 - Medications Medications: Current Medications Acetaminophen (Tylenol 325mg Tab) 650 mg PO Q6 PRN PRN Reason: Pain, moderate (4-7) Last Admin: 05/04/17 22:57 Dose: 650 mg Gabapentin (Neurontin) 800 mg PO DAILY [facility] Last Admin: 05/05/17 09:43 Dose: 800 mg Heparin Sodium (Porcine) (Heparin) 5,000 units SC Q8 [facility] Last Admin: 05/05/17 13:08 Dose: 5,000 units Ciprofloxacin (Cipro 400mg/200ml Dsw) 400 mg in 200 mls @ 133 mls/hr IVPB Q12H [facility] Last Admin: 05/05/17 17:43 Dose: 133 mls/hr Insulin Aspart (Novolog) 0 unit SC ACHS [facility] PRN Reason: Protocol Last Admin: 05/05/17 17:39 Dose: Not Given Insulin Aspart (Novolog) 20 unit SC AC [facility] Last Admin: 05/05/17 17:41 Dose: 20 unit Insulin Glargine (Lantus) 50 unit SC HS [facility] Lisinopril (Zestril) 10 mg PO DAILY [facility] Last Admin: 05/05/17 09:43 Dose: 10 mg Methadone HCl (Methadose) 200 mg PO DAILY@0800 [facility] Last Admin: 05/05/17 07:04 Dose: 200 mg Pantoprazole Sodium (Protonix Ec Tab) 40 mg PO DAILY [facility] Last Admin: 05/05/17 09:43 Dose: 40 mg Quetiapine Fumarate (Seroquel) 100 mg PO BID [facility] Last Admin: 05/05/17 17:37 Dose: 100 mg Saccharomyces Boulardii (Florastor) 250 mg PO BID [facility] Last Admin: 05/05/17 17:37 Dose: 250 mg Zolpidem Tartrate (Ambien) 5 mg PO HS PRN PRN Reason: Insomnia Last Admin: 05/03/17 22:18 Dose: 5 mg - Labs Labs: 05/05/17 07:08 05/05/17 07:08 PT 12.6 SECONDS (9.7-12.2) H 04/29/17 08:09 INR 1.1 04/29/17 08:09 Attending/Attestation - Attestation I have personally seen and examined this patient.: Yes I have fully participated in the care of the patient.: Yes I have reviewed all pertinent clinical information, including history, physical exam and plan: Yes Notes (Text): 05/05/17 20:48 Patient was seen and examined at 4:52 PM 05/05/17 655 Patient is a 46 F with (PMH of DM, HTN, Hep C, heroin/cocain/alcohol abuser 4 years ago) who presented to the ED on 04/28/17 with bilateral leg pain, LLQ and RUQ abdominal pain since 2 days prior to her presentation, and urinary burning/ increased frequency that has been present on and off for the past 3 months. Venous Duplex of the legs was negative for DVT. Bladder U/S showed 53 ml post void residual otherwise unremarkable. Chest X Ray showed NO active disease. U/S Abdomen showed cholelithiasis without cholecystitis and mild hepatomegaly. Blood Culture 04/28/17 showed Enterobacter and Urine Culture 04/28/17 showed E. coli. Currently upon FULL ROS: Very upset about not being allowed visitors and about being watched remotely for 1:1 observation feeling like she is prisoner here Soft bowel movement today nonbloody/nonblack NO burning/pain with urination with decreased frequency NO abdominal pain NO n/v Bilateral Leg Pain (bilateral thigh soreness) has improved as she has been walking on the floor frequently as instructed by me NO other complaints upon FULL ROS HEENT: NCA, EOMI, PERRLA, NO thyromegaly, NO lymphadenopathy, NO pharyngeal erythema/exudate Cardio: NS1 and NS2, NO M/R/G Resp: CTA B/L, NO R/R/W GI: BS x 4, Soft, NT, ND, NO HSM, NO guarding/rebound tenderness Ext: Capillary refill is 2 seconds, NO edema, Pulses are strong and equal Neuro: CN II through XII are grossly intact Assessment and Plan: 1). UTI and Bacteremia Urine Culture 04/28/17 showed E. coli Blood Culture 04/28/17 showed Enterobacter Patient was on Tigecycline 50 mg IV Q12H and Gentamicin 60 mg IV Q8H but these were discontinued 05/05/17 Patient was started on Ciprofloxacin 400 mg IV Q12H on 05/05/17 Repeat Blood Culture 05/04/17 is negative to date Repeat Urine Culture 05/04/17 did not show any growth ID Dr. Payne help is appreciated 2). Hx Abdominal Pain Resolved See report U/S Abdomen 3). Uncontrolled DM Patient's family and friends were bringing her sugary food from outside Explained at length the need to control blood glucose in order to help fight the UTI and Bacteremia Lantus 50 units SC HS Aspart 20 units SC AC [facility] Dr. Mitchell's help is greatly appreciated 4). Hx HTN Zestril 10 mg PO 1x/day Controlled 5). Hx Bipolar Disorder Seroquel 100 mg PO 2x/day 6). Hx Bilateral Thigh Pain Better with increased ambulation as explained in ROS above 7). Hx Opoid Abuse Methadone 200 PO 1x/day as confirmed with [facility] 8). Hx Hepatitis C Seen by GI Dr. Pantoja on 04/30/17 and outpatient follow up with GI Clinic through the [facility] was recommended for further workup for viral load/ genotype for treatment options 9). Hx Elevated LFTs Trending down Continue to monitor 10). Prophylactic Measures Florastor 25 mg PO 2x/day Ambien 5 mg PO QHS Heparin 5,000 Units SC Q8H Prior to my starting to care for the patient on 04/29/17, there was a possibility that friend/family member may have brought patient drugs from outside as empty needle/syringe was found in her room. Therefore she was placed on 1:1. Also an order was placed to not allow any visitors. However, this order was rescinded today but the patient is still 1:1 remotely. Disposition: will need to have repeat blood culture 05/04/17 to be finalized as negative before discharging patient. Da Dewitt D.O.
[2017-05-05] MEDS: Saccharomyces Boulardi 250 mg Cap PO SCH ×2 (09:43→17:37)
[2017-05-05] MEDS: Pantoprazole 40 mg EC Tab PO SCH (09:43)
--- NOTE | 2017-05-05 16:16 | PN ---
SUBJECTIVE: This is a 46-year-old female with recent uncontrolled type 2 insulin-requiring diabetes with marked hyperglycemic accelerations and almost being given a daily dose insulin adjustments of her regimen thereof. Her glucose values are still fluctuating now and ranging from 316 to 390 mg/dL. LABORATORY DATA: Her latest chemistry shows a BUN of 13, sodium 134, potassium 4.3, chloride 96, CO2 27, glucose 345, and creatinine 0.5. Her glucose level at lunch time was 70 mg/dL. ASSESSMENT AND PLAN: So, at this time, we will actually modify her Novolog given at mealtimes to a lower dose of 24 units subcutaneous t.i.d. before meals as ordered. We will titrate incremental as indicated to optimize metabolic control. We will continue the low-dose correction scale using Novolog insulin to avoid hypoglycemia and detailed orders have been given. We will also continue the long-acting basal insulin, but will modify to a lower dose of 70 units subcutaneous at bedtime, to start tonight. We will obtain serial chemistries and supplement accordingly as needed. We will follow the patient. Colleen Mitchell MD
--- NOTE | 2017-05-05 17:07 | CP.PCM.PN ---
Subjective - Date & Time of Evaluation Date of Evaluation: 05/05/17 Time of Evaluation: 03:15 - Subjective Subjective: dictated Objective - Vital Signs/Intake and Output Vital Signs (last 24 hours): Temp Pulse Resp BP Pulse Ox 97.6 F 85 20 109/85 99 05/05/17 15:12 05/05/17 15:12 05/05/17 15:12 05/05/17 15:12 05/05/17 15:12 Intake and Output: 05/05/17 05/05/17 06:59 18:59 Intake Total 650 500 Balance 650 500 - Medications Medications: Current Medications Acetaminophen (Tylenol 325mg Tab) 650 mg PO Q6 PRN PRN Reason: Pain, moderate (4-7) Last Admin: 05/04/17 22:57 Dose: 650 mg Gabapentin (Neurontin) 800 mg PO DAILY [facility] Last Admin: 05/05/17 09:43 Dose: 800 mg Heparin Sodium (Porcine) (Heparin) 5,000 units SC Q8 [facility] Last Admin: 05/05/17 13:08 Dose: 5,000 units Ciprofloxacin (Cipro 400mg/200ml Dsw) 400 mg in 200 mls @ 133 mls/hr IVPB Q12H [facility] Insulin Aspart (Novolog) 0 unit SC ACHS [facility] PRN Reason: Protocol Last Admin: 05/05/17 11:58 Dose: Not Given Insulin Aspart (Novolog) 20 unit SC AC [facility] Last Admin: 05/05/17 11:59 Dose: Not Given Insulin Glargine (Lantus) 50 unit SC HS [facility] Lisinopril (Zestril) 10 mg PO DAILY [facility] Last Admin: 05/05/17 09:43 Dose: 10 mg Methadone HCl (Methadose) 200 mg PO DAILY@0800 [facility] Last Admin: 05/05/17 07:04 Dose: 200 mg Pantoprazole Sodium (Protonix Ec Tab) 40 mg PO DAILY [facility] Last Admin: 05/05/17 09:43 Dose: 40 mg Quetiapine Fumarate (Seroquel) 100 mg PO BID [facility] Last Admin: 05/05/17 09:43 Dose: 100 mg Saccharomyces Boulardii (Florastor) 250 mg PO BID [facility] Last Admin: 05/05/17 09:43 Dose: 250 mg Zolpidem Tartrate (Ambien) 5 mg PO HS PRN PRN Reason: Insomnia Last Admin: 05/03/17 22:18 Dose: 5 mg - Labs Labs: 05/05/17 07:08 05/05/17 07:08 PT 12.6 SECONDS (9.7-12.2) H 04/29/17 08:09 INR 1.1 04/29/17 08:09 Assessment and Plan (1) Escherichia coli septicemia Status: Acute (2) Hepatitis C Status: Acute (3) Hepatitis C antibody positive in blood Status: Acute (4) Cystitis Status: Acute (5) Uncontrolled diabetes mellitus Status: Acute (6) ESBL (extended spectrum beta-lactamase) producing bacteria infection Status: Acute
[2017-05-05] MEDS: Ciprofloxacin 400mg/200ml D5W 400 MG/200 ML BAG IVPB SCH (17:43)
[2017-05-05] MEDS ORDERED: (Lantus) Insulin Glargine, Recombinant SC SCH (22:00)
--- NOTE | 2017-05-06 04:52 | PN ---
DATE: 05/05/2017 SUBJECTIVE: The patient is feeling better. She is afebrile. She wants to go. She is coughing. No new complaints. PHYSICAL EXAMINATION VITAL SIGNS: T-max 97.6, pulse 85, blood pressure is 109/85, respirations are 20. HEENT: Head is atraumatic and normocephalic. NECK: Supple. CARDIOPULMONARY: S1 and S2 and regular. LUNGS: Clear. No crackles or rales present. ABDOMEN: Soft. Nontender. No guarding. No rigidity present. EXTREMITIES: Have no edema, clubbing or cyanosis. LABORATORY DATA: She is being treated for septicemia. The cultures from 04/28/2017 was E. coli in the urine. However, blood cultures were reported as Enterobacter agglomerans, which is sensitive to Cipro and was sensitive to tobramycin, which she was on and repeat blood cultures are negative 24 hours and urine cultures negative. She was on tigecycline and tobramycin. 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 Samara Payne MD
[2017-05-06] MEDS: Ciprofloxacin 400mg/200ml D5W 400 MG/200 ML BAG IVPB SCH (06:00)
[2017-05-06] MEDS: Methadone 40 mg Tab PO SCH (07:00)
[2017-05-06] MEDS: (Novolog) Insulin Aspart, Recombinant 100 u/ml 10 ml vial SC SCH ×4 (07:30→12:05)
[2017-05-06 07:41] LABS: BASO % 0.5 % (0.0-2.0); EOS # 0.2 K/uL (0.0-0.7); EOS % 3.8 % (0.0-4.0); HEMOGLOBIN 13.8 g/dL (11.0-16.0); LYMPH # 2.5 K/uL (1.0-4.3); LYMPH % 43.9 % (20.0-40.0); MEAN CELL VOLUME 91.5 fL (81.0-99.0); MEAN CORPUSCULAR HEMOGLOBIN 30.3 pg (27.0-31.0); MEAN CORPUSCULAR HGB CONC 33.1 g/dL (33.0-37.0); MEAN PLATELET VOLUME 10.2 fL (7.2-11.7); MONO # 0.8 K/uL (0.0-0.8); MONO % 13.9 % (0.0-10.0); NEUT # 2.2 K/uL (1.8-7.0); NEUT % 37.9 % (50.0-75.0); NRBC % 0.1 % (0.0-2.0); RBC 4.55 Mil/uL (3.80-5.20); RED CELL DISTRIBUTION WIDTH 13.2 % (11.5-14.5); WHITE BLOOD COUNT 5.7 K/uL (4.8-10.8)
[2017-05-06 09:11] VITALS: BP 126/90; PULSE 82; RESP 18; TEMP 98; O2SAT 98
[2017-05-06] MEDS: Saccharomyces Boulardi 250 mg Cap PO SCH (09:38)
[2017-05-06] MEDS: Pantoprazole 40 mg EC Tab PO SCH (10:30)
[2017-05-06 12:02] LABS: ALBUMIN 3.7 g/dL (3.5-5.0)
[2017-05-06 12:05] LABS: AST/SGOT 136 U/L (14-36); GFR AFRICAN-AMERICAN > 60; GFR NON-AFRICAN AMERICAN > 60
[2017-05-06 12:06] LABS: ALT/SGPT 133 U/L (9-52); BLOOD UREA NITROGEN 17 mg/dL (7-17); CALCIUM 9.3 mg/dl (8.6-10.4); MAGNESIUM 1.6 mg/dL (1.6-2.3)
--- NOTE | 2017-05-06 19:03 | CP.PCM.DIS ---
Provider - Provider Date of Admission: 04/28/17 16:51 Attending physician: Da Dewitt MD Primary care physician: Dr. Parrish Consults: Dr. Kateryna Rangel (urology) Dr. Dodd (surgery) Dr. Payne (ID) Time Spent in preparation of Discharge (in minutes): 45 Diagnosis - Discharge Diagnosis (1) ESBL (extended spectrum beta-lactamase) producing bacteria infection Status: Resolved Comment: see summary for details (2) Uncontrolled diabetes mellitus Status: Acute Comment: see summary for details (3) Hypertension Status: Acute Comment: see summary for details (4) Psychiatric disorder Status: Acute Comment: see summary for details Hospital Course - Lab Results Lab Results: Micro Results 05/04/17 11:09 Blood-Venous Blood Culture - Preliminary NO GROWTH AFTER 48 HOURS 05/04/17 06:15 Blood-Venous Blood Culture - Preliminary NO GROWTH AFTER 48 HOURS 05/02/17 21:53 Stool Stool Culture - Final NO SALMONELLA, SHIGELLA OR CAMPYLOBACTER ISOLATED. 05/04/17 Unknown Urine,Clean Catch Urine Culture - Final No Growth (<1,000 CFU/ML) 05/02/17 Unknown Rectum Ova and Parasite Concentrate Exam - Final 04/28/17 17:15 Blood-Venous Blood Culture - Final Enterobacter Agglomerans 04/28/17 17:15 Blood-Venous Gram Stain - Final 04/28/17 Unknown Urine Urine Culture - Final Escherichia Coli Most Recent Lab Values WBC 5.7 K/uL (4.8-10.8) 05/06/17 07:23 RBC 4.55 Mil/uL (3.80-5.20) 05/06/17 07:23 Hgb 13.8 g/dL (11.0-16.0) 05/06/17 07:23 Hct 41.7 % (34.0-47.0) 05/06/17 07:23 MCV 91.5 fL (81.0-99.0) 05/06/17 07:23 MCH 30.3 pg (27.0-31.0) 05/06/17 07:23 MCHC 33.1 g/dL (33.0-37.0) 05/06/17 07:23 RDW 13.2 % (11.5-14.5) 05/06/17 07:23 Plt Count 113 K/uL (130-400) L 05/06/17 07:23 MPV 10.2 fL (7.2-11.7) 05/06/17 07:23 Neut % (Auto) 37.9 % (50.0-75.0) L 05/06/17 07:23 Lymph % (Auto) 43.9 % (20.0-40.0) H 05/06/17 07:23 Tate % (Auto) 13.9 % (0.0-10.0) H 05/06/17 07:23 Eos % (Auto) 3.8 % (0.0-4.0) 05/06/17 07:23 Baso % (Auto) 0.5 % (0.0-2.0) 05/06/17 07:23 Neut # 2.2 K/uL (1.8-7.0) 05/06/17 07:23 Lymph # 2.5 K/uL (1.0-4.3) 05/06/17 07:23 Tate # 0.8 K/uL (0.0-0.8) 05/06/17 07:23 Eos # 0.2 K/uL (0.0-0.7) 05/06/17 07:23 Baso # 0.0 K/uL (0.0-0.2) 05/06/17 07:23 Differential Comment 04/30/17 08:08 PT 12.6 SECONDS (9.7-12.2) H 04/29/17 08:09 INR 1.1 04/29/17 08:09 pO2 47 mm/Hg (30-55) 04/28/17 12:55 VBG pH 7.53 (7.32-7.43) H 04/28/17 12:55 VBG pCO2 28 mmHg (40-60) L 04/28/17 12:55 VBG HCO3 26.0 mmol/L 04/28/17 12:55 VBG Total CO2 24.3 mmol/L (22-28) 04/28/17 12:55 VBG O2 Sat (Calc) 91.0 % (40-65) H 04/28/17 12:55 VBG Base Excess 1.7 mmol/L (0.0-2.0) 04/28/17 12:55 VBG Potassium 4.5 mmol/L (3.6-5.2) 04/28/17 12:55 Sodium 132.0 mmol/l (132-148) 04/28/17 12:55 Chloride 95.0 mmol/L (98-107) L 04/28/17 12:55 Glucose 460 mg/dl (65-105) H* 04/28/17 12:55 Lactate 1.7 mmol/L (0.7-2.1) 04/28/17 12:55 Crit Value Called To Mary hall 04/28/17 12:55 Crit Value Called By Robyn 04/28/17 12:55 Crit Value Read Back Y 04/28/17 12:55 Blood Gas Notified Time 1300 04/28/17 12:55 Sodium 136 mmol/L (132-148) 05/06/17 10:00 Potassium 4.1 mmol/L (3.6-5.2) 05/06/17 10:00 Chloride 94 mmol/L (98-107) L 05/06/17 10:00 Carbon Dioxide 28 mmol/L (22-30) 05/06/17 10:00 Anion Gap 18 (10-20) 05/06/17 10:00 BUN 17 mg/dL (7-17) 05/06/17 10:00 Creatinine 0.6 MG/DL (0.7-1.2) L 05/06/17 10:00 Est GFR ( Amer) > 60 05/06/17 10:00 Est GFR (Non-Af Amer) > 60 05/06/17 10:00 POC Glucose (mg/dL) 117 mg/dL (65-110) H 05/06/17 11:30 Random Glucose 102 mg/dL (65-105) 05/06/17 10:00 Hemoglobin A1c 16.3 % (4.2-6.5) H 04/30/17 08:08 Calcium 9.3 mg/dl (8.6-10.4) 05/06/17 10:00 Phosphorus 4.6 mg/dL (2.5-4.5) H 05/06/17 10:00 Magnesium 1.6 mg/dL (1.6-2.3) 05/06/17 10:00 Total Bilirubin 0.8 mg/dL (0.2-1.3) 05/06/17 10:00 GGT 351 U/L (8-78) H 04/30/17 08:08 AST 136 U/L (14-36) H 05/06/17 10:00 ALT 133 U/L (9-52) H 05/06/17 10:00 Alkaline Phosphatase 211 U/L (38-126) H D 05/06/17 10:00 Total Creatine Kinase 25 U/L (30-135) L 04/28/17 12:41 CK-MB (Mass) 0.29 ng/mL (0.0-3.38) 04/28/17 12:41 Troponin I < 0.0120 ng/mL (0.00-0.120) 04/28/17 12:41 Total Protein 7.7 g/dL (6.3-8.3) 05/06/17 10:00 Albumin 3.7 g/dL (3.5-5.0) 05/06/17 10:00 Globulin 3.9 gm/dL (2.2-3.9) 05/06/17 10:00 Albumin/Globulin Ratio 1.0 (1.0-2.1) 05/06/17 10:00 Triglycerides 158 mg/dL (0-149) H 04/30/17 08:08 Cholesterol 119 mg/dL (0-199) 04/30/17 08:08 LDL Cholesterol Direct 73 mg/dL (0-129) 04/30/17 08:08 HDL Cholesterol 23 mg/dL (30-70) L 04/30/17 08:08 Lipase 148 U/L (23-300) 04/30/17 08:08 TSH 3rd Generation 0.96 mIU/L (0.46-4.68) 04/30/17 08:08 Venous Blood Potassium 4.5 mmol/L (3.6-5.2) 04/28/17 12:55 Urine Color Yellow (YELLOW) 05/04/17 06:50 Urine Clarity Clear (Clear) 05/04/17 06:50 Urine pH 5.0 (5.0-8.0) 05/04/17 06:50 Ur Specific [place] 1.013 (1.003-1.030) 05/04/17 06:50 Urine Protein Negative mg/dL (NEGATIVE) 05/04/17 06:50 Urine Glucose (UA) 3+ mg/dL (Normal) H 05/04/17 06:50 Urine Ketones Negative mg/dL (NEGATIVE) 05/04/17 06:50 Urine Blood Negative (NEGATIVE) 05/04/17 06:50 Urine Nitrate Negative (NEGATIVE) 05/04/17 06:50 Urine Bilirubin Negative (NEGATIVE) 05/04/17 06:50 Urine Urobilinogen Normal mg/dL (0.2-1.0) 05/04/17 06:50 Ur Leukocyte Esterase Neg Chris/uL (Negative) 05/04/17 06:50 Urine WBC (Auto) 2 /hpf (0-5) 05/04/17 06:50 Urine RBC (Auto) < 1 /hpf (0-3) 05/04/17 06:50 Ur Squamous Epith Cells < 1 /hpf (0-5) 05/04/17 06:50 Urine Bacteria Occ (<OCC) H 04/28/17 13:28 Urine Opiates Screen Negative (NEGATIVE) 04/29/17 14:28 Urine Methadone Screen Positive (NEGATIVE) 04/29/17 14:28 Ur Barbiturates Screen Negative (NEGATIVE) 04/29/17 14:28 Ur Phencyclidine Scrn Negative (NEGATIVE) 04/29/17 14:28 Ur Amphetamines Screen Negative (NEGATIVE) 04/29/17 14:28 U Benzodiazepines Scrn Negative (NEGATIVE) 04/29/17 14:28 U Oth Cocaine Metabols Negative (NEGATIVE) 04/29/17 14:28 U Cannabinoids Screen Negative (NEGATIVE) 04/29/17 14:28 Serum Ketones Negative (NEGATIVE) 04/28/17 12:41 SPIKE 6 Profile Negative (NEGATIVE) 04/30/17 17:56 Anti-Mitochondrial Ab Negative (Negative) 04/30/17 17:56 Anti-Smooth Muscle Ab Negative (Negative) 04/30/17 17:56 Hepatitis A IgM Ab Negative (NEGATIVE) 04/29/17 08:09 Hep Bs Antigen Negative (NEGATIVE) 04/29/17 08:09 Hep B Core IgM Ab Negative (NEGATIVE) 04/29/17 08:09 Hepatitis C Antibody Reactive (NEGATIVE) H 04/29/17 08:09 HIV 1&2 Antibody Screen Negative (NEGATIVE) 04/29/17 08:09 - Hospital Course Hospital Course: "cc: Leg and abdominal pain Patient is a 46 F with PMH of DM, HTN, Hep C, heroin/cocain/alcohol abuser 4 years ago who presents to the ED with bilateral leg and abdominal pain that has been getting worse since Saturday. Patient also has urinary frequency and burning that his been on and off for 3 months and has never been treated. Patient describes her urine as beer colored and foamy. Patient describes the abdominal pain to be in the LLQ and RUQ and has had nausea and two episodes of vomiting over the weekend. Patient says her legs feel like they are burning. Patient denies chest pain now although she says she had some when she first came to the ED. She denies headache, palpitations, shortness of breath, constipation, or diarrhea." CT in ED showed moderate amount of air in bladder, emphysematous cystitis cannot be excluded; mild prominence of CBD; distended GB; fecal retention; diverticulosis; appendix mildly prominent 8.8mm; no adjacent fat stranding or fluid. Surgery consulted who said unlikely appendicitis given normal WBC and non tender in RLQ. Patient continued on home medications for uncontrolled diabetes and novolog sliding scale. Patient started on Lisinopril 10 mg po daily. UA 04/28 was positive for glucose, ketones, urobilinogen, leukocyte esterase, wbc, rbc, epith cells, bacteria. Patient started on IV antibiotics for UTI. 04/29 abd ultrasound showed cholelithiasis without sonographic evidence of cholecystitis. Mild hepatomegaly with fatty infiltration. No additional abnormality. Patient has history of bipolar disorder and PTSD started on low dose Seroquel 25mg po daily and seen by psychiatry. Patient had past use of Heroin and goes to [facility] clinic for methadone. 04/29 patient had an episode of altered mental status and head CT ordered which showed no definite acute intracranial abnormality. UTI positive for ESBL. Patient's antibiotics changed based on sensitivities. Blood culture shows enterobacter. Repeat urine and blood cultures were negative. Patient feeling much better on antibiotics and no longer has pain with urination. Patient to follow up with urology, Dr. Kateryna Rangel, as an outpatient. As per Dr. Payne, patient to continue Ciprofloxacin outpatient for 6 days. Patient stable for discharge as per Dr. Palomares. This is a summary of the patient's hospital course, see chart for full details. Discharge Exam - Head Exam Head Exam: ATRAUMATIC, NORMAL INSPECTION, NORMOCEPHALIC - Eye Exam Eye Exam: EOMI, Normal appearance, PERRL - ENT Exam ENT Exam: Mucous Membranes Moist - Neck Exam Neck exam: Full Rom - Respiratory Exam Respiratory Exam: Clear to PA & Lateral, NORMAL BREATHING PATTERN, UNREMARKABLE. absent: Rales, Wheezes, Respiratory Distress, Stridor - Cardiovascular Exam Cardiovascular Exam: REGULAR RHYTHM, RRR - GI/Abdominal Exam GI & Abdominal Exam: Normal Bowel Sounds. absent: Distended, Firm - Extremities Exam Extremities exam: full ROM, normal inspection - Back Exam Back exam: NORMAL INSPECTION - Neurological Exam Neurological exam: Alert, Oriented x3 - Psychiatric Exam Psychiatric exam: Normal Affect, Normal Mood - Skin Skin Exam: Intact, Normal Color, Warm Discharge Plan - Discharge Medications Prescriptions: Ciprofloxacin [Cipro] 500 mg PO Q12 #12 tab Gabapentin [Neurontin] 800 mg PO DAILY #30 tab Lisinopril [Zestril] 10 mg PO DAILY #30 tab Saccharomyces Boulardi [Florastor] 250 mg PO BID #60 cap - Follow Up Plan Condition: STABLE Disposition: HOME/ ROUTINE Instructions: Ciprofloxacin (By mouth), Lisinopril (By mouth), Gabapentin (By mouth), Urinary Tract Infection in Women (DC), Heart Healthy Diet (DC), Diabetic Foot Care (DC), Basic Carbohydrate Counting (DC), Meal Planning with the Plate Method (DC), Meal Planning with Diabetes Exchanges (DC), Diabetic Neuropathy (DC), Hypertension (DC) Additional Instructions: Patient to be discharged home per Dr. Palomares. Patient should resume all home medications. Patient should be taking Humalog 20U SC AC (20 units of Humalog with meals) and Lantus 50U SC HS (50 units of Lantus at night time before bed). Patient should also take newly prescribed gabapentin, lisinopril and ciprofloxacin. Ciprofloxacin is an antibiotic that should be taken for 6 more days. Patient should make an appointment and follow up with PMD or [facility] in the basement of this hospital within one week. Patient should return to ED immediately if symptoms return or worsen. Referrals: [facility] at [facility] [Outside]
--- NOTE | 2017-05-07 04:31 | PN ---
ENDO FOLLOWUP NOTE LOCATION: Room 655 This is a 46-year-old female with recent uncontrolled type 2 insulin requiring diabetes, now being followed closely for metabolic management. Her glycemic levels are fluctuating, but much improved at this time, and the latest glucose levels have ranged from 117 to 288 mg/dL. Her latest chemistry showed a BUN of 17, sodium 136, potassium 4.1, chloride 94, CO2 of 28, glucose 102 and creatinine of 0.6. So at this time, we will continue the modified basal and bolus insulin regimen as given with Lantus given at 50 units subQ at bedtime daily as ordered. We will continue the Novolin given as 20 units subQ t.i.d. before meals as ordered. She will follow with her medical doctor for outpatient diabetic and medical management. She is scheduled for discharge today as noted. We will follow. Colleen Mitchell MD
--- NOTE | 2017-05-07 17:22 | PN ---
DATE: 05/05/2017. This is a 46-year-old female with recent uncontrolled type 2 insulin-requiring diabetes, now being followed closely for metabolic management. Her glycemic levels are fluctuating, but much improved at this time and the latest chemistry showed a BUN of 19, sodium 136, potassium 4.3, chloride 97, CO2 of 27, glucose 199, and creatinine 0.6. Her glucose levels have ranged from 103 to 204 and 109 mg/dL. So at this time, we will modify her basal and bolus insulin regimen and lower the NovoLog to 20 units subcutaneous t.i.d. before meals as ordered. We will also lower the basal insulin with Lantus to be given at 50 units subcutaneous at bedtime daily as given. We will titrate incremental as indicated to optimize metabolic control. We will obtain serum chemistries and supplement accordingly as needed. We will follow. Colleen Mitchell MD
--- NOTE | 2017-05-07 17:31 | PN ---
ROOM: 5. SUBJECTIVE: This is a 46-year-old female with mild and presuming intractable vomiting and variable oral . LABORATORY DATA: Her glucose values have ranged from 290 to 322 and 354 mg/dL. Her latest chemistry showed BUN of 16, sodium of 132, potassium 4.3, chloride 98, CO2 of 26, glucose 311, and creatinine elevated liver transaminases of . ASSESSMENT AND PLAN: I have modified her ------. We will follow. Colleen Mitchell MD
--- NOTE | 2017-05-16 13:21 | CP.PCM.PN ---
This is Dr. Colleen Mitchell dictating an endocrinology F/U progress note for Josefa Mace at [facility]. This is a 46 y/o female with recent uncontrolled type II IDDM, now being followed closely for metabolic management. She presented here with severe abdominal pain and had a UTI with bacteremia. She is now also receiving IV antibiotics, as noted. She is being followed closely for metabolic management due to hyperglycemic accelerations as noted. Her glucose values today have ranged from 261-327 mg/dL. Her fasting glucose was 310 mg/dL. Latest chemistry panel: BUN: 16 Sodium: 135 Potassium: 3.9 Chloride: 101 CO2: 25 Glucose: 333 Creatinine: 0.7 She also shows elevated liver transaminases, as noted. At this time, we will modify once again her basal and bolus insulin regimen. This was actually increased by the medical staff today to lantus given at 56 units sub-q at bedtime daily, but we will actually increase the dosing to 60 units sub-q at bed time daily, to start tonight. We will continue the low dose correction scale, using Novolog insulin as given to obviate hypoglycemia. Detailed orders have been given. We will also increase her Novolog to 25 units sub-q t.i.d. as ordered by the medical staff, and will titrate increments as indicated to optimize metabolic control. We will obtain serial chemistries and supplement accordingly, as needed. We will follow advice accordingly. MTDD
== END 2017-05-06 13:11 | disposition home or self-care (01) | DRG 901 ==
LOC: C.ER 11:47 → OBSVTOIN 16:51 → C.9E 16:51 → EEVIPCON 16:51 → C.3T 17:35 → C.6T 04-30 21:30
PROVIDERS: ADMIT Family Medicine; ATTEND Family Medicine
PROC: HZ52ZZZ Individual Psychotherapy for Substance Abuse Treatment, Cognitive-Behavioral (ICD-10-PCS; principal; 2017-04-29)
PROC: HZ59ZZZ Individual Psychotherapy for Substance Abuse Treatment, Supportive (ICD-10-PCS; 2017-04-29)
PROC: HZ56ZZZ Individual Psychotherapy for Substance Abuse Treatment, Psychoeducation (ICD-10-PCS; 2017-04-29)
PROC: HZ42ZZZ Group Counseling for Substance Abuse Treatment, Cognitive-Behavioral (ICD-10-PCS; 2017-04-29)
PROC: HZ46ZZZ Group Counseling for Substance Abuse Treatment, Psychoeducation (ICD-10-PCS; 2017-04-29)
DX: A41.51 Sepsis due to Escherichia coli [E. coli] (principal); E11.40 Type 2 diabetes mellitus with diabetic neuropathy, unspecified; E11.65 Type 2 diabetes mellitus with hyperglycemia; R16.0 Hepatomegaly, not elsewhere classified; N30.80 Other cystitis without hematuria; R65.20 Severe sepsis without septic shock; I10 Essential (primary) hypertension; F31.9 Bipolar disorder, unspecified; F43.10 Post-traumatic stress disorder, unspecified; X58.XXXA Exposure to other specified factors, initial encounter; F41.9 Anxiety disorder, unspecified; F17.210 Nicotine dependence, cigarettes, uncomplicated; Z79.4 Long term (current) use of insulin; K59.00 Constipation, unspecified; Z88.0 Allergy status to penicillin; G47.00 Insomnia, unspecified; F51.9 Sleep disorder not due to a substance or known physiological condition, unspecified; F11.21 Opioid dependence, in remission; F39 Unspecified mood [affective] disorder; T36.1X5A Adverse effect of cephalosporins and other beta-lactam antibiotics, initial encounter; Z09 Encounter for follow-up examination after completed treatment for conditions other than malignant neoplasm; Z86.19 Personal history of other infectious and parasitic diseases

== ENCOUNTER 2017-06-08 04:42 | Inpatient (IN) | payer MEDICAID ==
[2017-06-08 04:42] VITALS: BMI 26.4
[2017-06-08] MEDS ORDERED: Sodium Chloride 0.9% 1,000 ML IV ONE ×2 (05:12→06:18)
--- NOTE | 2017-06-08 05:20 | C.PDOC ---
History Of Present Illness Patient is a 46 F with PMH of DM, HTN, Hep C, heroin/cocain/alcohol abuser 4 years ago who presents to the ED with bilateral leg gradually developed for past 2 days. Patient says her legs feel like they are burning, diffuse aching pain left>right leg. Patient denies fever, chills, headache, dizziness, drooling , chest pain, SOB, dyspnea, diaphoresis, palpitation, abd. pain, N/V/D, UTI sx, denies weakness, vascular deficits to B/L LEs. At present time, pt appears anxious, screaming for pain medication. Off note: previous ED records review, multiple previous visit due to same complaints. Last one was on 05/29/17 PMH:DM, HTN, Hep C, heroin/cocain/alcohol abuser 4 years ago Psurgical: back abscess, abdominal abscess many years ago Family hx: Mom and Aunt-DM Socialhx: tobacco: 5 cigarettes per day for about 30 years EtOH: sober for 4 years, used to drink one bottle of hard liquor per day Drugs: sober for 4 years, used to inject heroin, snort cocaine goes to [facility] Meds:Neurontin 800mg lantus 25 u daily humalog with meals metformin 500 mg daily ambien 10 mg HS htn medication seroquel constipation medication PRN Time Seen by Provider: 06/08/17 04:53 Chief Complaint (Nursing): Lower Extremity Problem/Injury History Per: Patient, Family Past Medical History Reviewed: Historical Data, Nursing Documentation, Vital Signs Vital Signs: Last Vital Signs Temp 98.4 F 06/10/17 16:00 Pulse 101 H 06/10/17 16:00 Resp 20 06/10/17 16:00 BP 122/95 H 06/10/17 16:00 Pulse Ox 97 06/10/17 16:00 - Medical History PMH: Anxiety, Bipolar Disorder, Diabetes, HTN, Post Traumatic Stress Disorder Denies: Chronic Kidney Disease - [facility] Procedures GROUP SUPERVISOR METAL HANGING FOR SUBSTANCE ABUSE TREATMENT, PSYCHOEDUCATION (04/28/17) GROUP SUPERVISOR METAL HANGING FOR SUBSTANCE ABUSE, COGNITIVE BEHAVIORAL (04/28/17) INDIV PSYCHOTHERAPY FOR SUBSTANCE ABUSE TREATMENT, SUPPORT (04/28/17) INDIV PSYCHOTHERAPY FOR SUBSTANCE ABUSE, COGNITIV BEHAVIORAL (04/28/17) INDIV PSYCHOTHERAPY FOR SUBSTANCE ABUSE, PSYCHOEDUCATION (04/28/17) Family History: States: No Known Family Hx - Social History Hx Tobacco Use: Yes Hx Alcohol Use: No Hx Substance Use: Yes (Methadone) - Immunization History Hx Tetanus Toxoid Vaccination: No Hx Influenza Vaccination: No Hx Pneumococcal Vaccination: No Review Of Systems Except As Marked, All Systems Reviewed And Found Negative. Constitutional: Negative for: Fever, Chills Eyes: Negative for: Vision Change ENT: Negative for: Throat Pain Cardiovascular: Negative for: Chest Pain, Palpitations, Edema, Light Headedness Respiratory: Negative for: Cough, Shortness of Breath, Wheezing Gastrointestinal: Negative for: Nausea, Vomiting, Abdominal Pain Genitourinary: Negative for: Dysuria, Frequency Musculoskeletal: Positive for: Leg Pain Skin: Negative for: Rash, Bruising Neurological: Negative for: Weakness, Numbness, Altered Mental Status, Headache , Dizziness Physical Exam - Physical Exam Appears: Well, Non-toxic, Agitated Skin: Normal Color, Warm, Dry, No Rash Head: Atraumatic, Normacephalic Eye(s): bilateral: PERRL Nose: No Flaring, No Discharge Oral Mucosa: Moist, No Drooling Throat: No Drooling Neck: Supple Cardiovascular: Rhythm Regular, No Friction Rub, No Murmur, No JVD Respiratory: No Decreased Breath Sounds, No Accessory Muscle Use, No Stridor, No Wheezing Gastrointestinal/Abdominal: Soft, No Tenderness, No Distention, No Guarding Back: No CVA Tenderness Extremity: Normal ROM, Tenderness (diffuse B/L LEs tenderness), Capillary Refill (less than 2sec to B/L LEs.), No Deformity, No Swelling, Other (No neurovascular deficist to B/L LEs. ) Pulses: Left Femoral: Normal, Right Femoral: Normal, Left Dorsalis Pedis: Normal , Right Dorsalis Pedis: Normal DTR: Knee (R): 0, Knee (L): 0, Ankle (R): 0, Ankle (L): 0 Neurological/Psych: Oriented x3, Normal Speech, Normal Motor, Normal Sensation, Normal Reflexes ED Course And Treatment - Laboratory Results Result Diagrams: 06/10/17 11:29 06/10/17 11:29 Lab Interpretation: Abnormal O2 Sat by Pulse Oximetry: 100 Pulse Ox Interpretation: Normal Progress Note: On re-eval, pt is remained unchanged. Blood work review and appears abnormal. Hyperglycemia, (+) ketones, AG 19. Pt has lcinical findings c/w diabteic ketoacidosis. case discussed with ED attending and admission recommend. Disposition - Disposition Disposition: HOSPITALIZED Disposition Time: 06:34 Condition: STABLE - Clinical Impression Clinical Impression: Neuropathy, Hyperglycemia due to type 1 diabetes mellitus, Ketoacidosis due to diabetes
[2017-06-08 05:53] LABS: BASO # 0.1 K/uL (0.0-0.2); EOS # 0.1 K/uL (0.0-0.7); EOS % 1.2 % (0.0-4.0); HEMATOCRIT 45.7 % (34.0-47.0); LYMPH # 1.7 K/uL (1.0-4.3); MEAN CELL VOLUME 89.4 fL (81.0-99.0); MEAN CORPUSCULAR HEMOGLOBIN 30.3 pg (27.0-31.0); MEAN PLATELET VOLUME 9.4 fL (7.2-11.7); MONO # 0.4 K/uL (0.0-0.8); MONO % 5.4 % (0.0-10.0); NRBC % 0.1 % (0.0-2.0); RED CELL DISTRIBUTION WIDTH 12.7 % (11.5-14.5); WHITE BLOOD COUNT 7.3 K/uL (4.8-10.8)
[2017-06-08 06:02] LABS: RBC URINE 2 /hpf (0-3); URINE BILIRUBIN NEGATIVE (NEGATIVE); URINE BLOOD NEGATIVE (NEGATIVE); URINE COLOR Yellow (YELLOW); URINE GLUCOSE (UA) 3+ mg/dL (Normal); URINE KETONE 1+ mg/dL (NEGATIVE); URINE LEUKOCYTE ESTERASE NEG Leu/uL (Negative); URINE PROTEIN NEGATIVE (NEGATIVE); WBC URINE 1 /hpf (0-5)
[2017-06-08 06:09] LABS: CHLORIDE 93 mmol/L (98-107); POTASSIUM 5.2 mmol/L (3.6-5.2); SODIUM 132 mmol/L (132-148)
[2017-06-08 06:11] LABS: ALB/GLOB RATIO 0.9 (1.0-2.1); ALKALINE PHOSPHATASE 304 U/L (38-126); AST/SGOT 61 U/L (14-36); BILIRUBIN,TOTAL 1.1 mg/dL (0.2-1.3); CARBON DIOXIDE 20 mmol/L (22-30); GFR AFRICAN-AMERICAN > 60; TOTAL PROTEIN 7.8 g/dL (6.3-8.3)
[2017-06-08 06:12] LABS: ALT/SGPT 89 U/L (9-52); BLOOD UREA NITROGEN 11 mg/dL (7-17); CALCIUM 9.8 mg/dl (8.6-10.4)
[2017-06-08 06:16] LABS: GLUCOSE,RANDOM 532 mg/dL (65-105)
[2017-06-08] MEDS ORDERED: (Novolin R) Insulin Human Regular 100 units/ml vial IV ONE (06:17)
[2017-06-08] MEDS ORDERED: (Novolin R) Insulin Human Regular 100 units/ml vial ONE (06:22)
[2017-06-08 06:55] LABS: VENOUS BLOOD GAS BASE EXCESS -2.9 mmol/L (0.0-2.0); VENOUS BLOOD GAS PCO2 41 mmHg (40-60); VENOUS BLOOD PH 7.35 (7.32-7.43)
[2017-06-08] MEDS ORDERED: Sodium Chloride 0.9% 1,000 ML ONE (07:01)
[2017-06-08] MEDS ORDERED: Enoxaparin 40 mg Syringe ONE (10:19)
[2017-06-08] MEDS ORDERED: Sodium Chloride 0.45% 1,000 ML IV ONE (10:19)
[2017-06-08] MEDS: Sodium Chloride 0.45% 1,000 ML IV SCH (10:38)
[2017-06-08] MEDS: Enoxaparin 40 mg Syringe SC SCH (10:42)
[2017-06-08] MEDS ORDERED: Methadone 40 mg Tab PO ONE (11:24)
[2017-06-08] MEDS ORDERED: (Novolog) Insulin Aspart, Recombinant 100 u/ml 10 ml vial ONE (11:26)
[2017-06-08] MEDS ORDERED: (Novolog) Insulin Aspart, Recombinant 100 u/ml 10 ml vial SC SCH (11:30)
[2017-06-08] MEDS: Methadone 40 mg Tab PO SCH (11:33)
[2017-06-08] MEDS: (Novolog) Insulin Aspart, Recombinant 100 u/ml 10 ml vial SC SCH ×2 (11:33→17:24)
[2017-06-08] MEDS: (Lantus) Insulin Glargine, Recombinant SC SCH (21:38)
[2017-06-08] MEDS ORDERED: (Lantus) Insulin Glargine, Recombinant SC SCH (22:00)
[2017-06-09] MEDS: (Novolog) Insulin Aspart, Recombinant 100 u/ml 10 ml vial SC SCH ×3 (08:30→17:09)
[2017-06-09] MEDS: Methadone 40 mg Tab PO SCH (09:01)
[2017-06-09] MEDS: Sodium Chloride 0.45% 1,000 ML IV SCH ×2 (09:07→12:00)
[2017-06-09] MEDS: Enoxaparin 40 mg Syringe SC SCH (09:16)
[2017-06-09] MEDS: (Lantus) Insulin Glargine, Recombinant SC SCH (21:47)
[2017-06-10] MEDS: (Novolog) Insulin Aspart, Recombinant 100 u/ml 10 ml vial SC SCH ×3 (08:20→17:29)
[2017-06-10] MEDS: Enoxaparin 40 mg Syringe SC SCH (09:24)
[2017-06-10] MEDS: Methadone 40 mg Tab PO SCH (09:40)
[2017-06-10] MEDS ORDERED: Pneumococcal 23-Valent Vaccine IM ONE ×2 (10:00→13:00)
--- NOTE | 2017-06-10 10:08 | HP ---
HISTORY OF PRESENT ILLNESS: A 46-year-old female in the hospital with chief complaint of hyperglycemia and leg pain. The patient came to the ER with an elevated blood sugar. The patient was given IV hydration and insulin with history of long-term diabetes and drug abuse. The patient is admitted on insulin, Humalog and Lantus. PHYSICAL EXAMINATION: GENERAL: The patient is awake, alert and oriented. VITAL SIGNS: Temperature 98 and pulse 70. HEENT: Within normal limits. NECK: Supple. CHEST: Symmetrical. HEART: Regular. ABDOMEN: Soft. EXTREMITIES: No edema. She has trophic changes in both lower extremities. IMPRESSION: The patient with diabetes, neuropathy, drug abuse . Ke Schulz MD
[2017-06-10 11:40] LABS: BASO % 0.8 % (0.0-2.0); EOS # 0.2 K/uL (0.0-0.7); EOS % 3.7 % (0.0-4.0); HEMATOCRIT 41.7 % (34.0-47.0); LYMPH # 2.2 K/uL (1.0-4.3); LYMPH % 42.7 % (20.0-40.0); MEAN CELL VOLUME 89.4 fL (81.0-99.0); MEAN CORPUSCULAR HEMOGLOBIN 29.8 pg (27.0-31.0); MEAN CORPUSCULAR HGB CONC 33.3 g/dL (33.0-37.0); MEAN PLATELET VOLUME 9.6 fL (7.2-11.7); MONO # 0.5 K/uL (0.0-0.8); MONO % 9.6 % (0.0-10.0); NRBC % 0.2 % (0.0-2.0); WHITE BLOOD COUNT 5.2 K/uL (4.8-10.8)
[2017-06-10 11:47] LABS: CHLORIDE 99 mmol/L (98-107); POTASSIUM 3.4 mmol/L (3.6-5.2); SODIUM 138 mmol/L (132-148)
[2017-06-10 11:49] LABS: AST/SGOT 127 U/L (14-36); BILIRUBIN,TOTAL 0.7 mg/dL (0.2-1.3); CARBON DIOXIDE 25 mmol/L (22-30); GFR AFRICAN-AMERICAN > 60
[2017-06-10 11:50] LABS: ALB/GLOB RATIO 0.9 (1.0-2.1); ALKALINE PHOSPHATASE 182 U/L (38-126); ALT/SGPT 94 U/L (9-52); BLOOD UREA NITROGEN 12 mg/dL (7-17); CALCIUM 9.1 mg/dl (8.6-10.4); GLUCOSE,RANDOM 246 mg/dL (65-105); PHOSPHOROUS 3.6 mg/dL (2.5-4.5); TOTAL PROTEIN 6.7 g/dL (6.3-8.3)
[2017-06-10 11:51] LABS: MAGNESIUM 1.5 mg/dL (1.6-2.3)
[2017-06-10] MEDS ORDERED: Potassium Chloride 20 mEq ER Tab PO ONE (12:39)
--- NOTE | 2017-06-10 15:24 | CP.PCM.PN ---
Subjective - Date & Time of Evaluation Date of Evaluation: 06/10/17 Time of Evaluation: 09:00 - Subjective Subjective: PGY3 on medicine Dr. Schulz service: Pt seen and examined at bedside. Pt reports chronic bilateral lower extremity pain. Pt also reports constipation for several days. Per RN pt was hypertensive overnight and fluids were on hold. No other events overnight. Objective - Vital Signs/Intake and Output Vital Signs (last 24 hours): Temp Pulse Resp BP Pulse Ox 97.5 F L 77 18 142/100 H 97 06/10/17 07:56 06/10/17 07:56 06/10/17 07:56 06/10/17 07:56 06/10/17 07:56 Intake and Output: 06/10/17 06/10/17 06:59 18:59 Intake Total 1090 Balance 1090 - Medications Medications: Current Medications Enoxaparin Sodium (Lovenox) 40 mg SC DAILY [facility] Last Admin: 06/10/17 09:24 Dose: 40 mg Famotidine (Pepcid) 20 mg PO BID [facility] Last Admin: 06/10/17 09:25 Dose: 20 mg Gabapentin (Neurontin) 800 mg PO BID [facility] Last Admin: 06/10/17 09:25 Dose: 800 mg Sodium Chloride (Sodium Chloride 0.45%) 1,000 mls @ 80 mls/hr IV .[id number] [facility] Last Admin: 06/09/17 12:00 Dose: Not Given Insulin Aspart (Novolog) 20 unit SC AC [facility] Last Admin: 06/10/17 12:38 Dose: 20 unit Insulin Glargine (Lantus) 25 unit SC [facility] Last Admin: 06/09/17 21:47 Dose: Not Given Lisinopril (Zestril) 5 mg PO DAILY [facility] Last Admin: 06/10/17 09:25 Dose: 5 mg Magnesium Oxide (Mag-Ox) 400 mg PO BID [facility] Metformin HCl (Glucophage) 500 mg PO BID [facility] Last Admin: 06/10/17 09:25 Dose: 500 mg Methadone HCl (Methadose) 200 mg PO DAILY [facility] Last Admin: 06/10/17 09:40 Dose: 200 mg Quetiapine Fumarate (Seroquel) 100 mg PO HS [facility] Last Admin: 06/09/17 21:47 Dose: 100 mg Tramadol HCl (Ultram) 50 mg PO TID PRN PRN Reason: Pain, moderate (4-7) Last Admin: 06/09/17 14:55 Dose: 50 mg Zolpidem Tartrate (Ambien) 5 mg PO HS PRN PRN Reason: Insomnia Last Admin: 06/09/17 21:47 Dose: 5 mg - Labs Labs: 06/10/17 11:29 06/10/17 11:29 PT 11.5 SECONDS (9.7-12.2) 06/08/17 05:37 INR 1.0 06/08/17 05:37 APTT 30 SECONDS (21-34) 06/08/17 05:37 - Constitutional Appears: Non-toxic, No Acute Distress - Head Exam Head Exam: NORMOCEPHALIC - Eye Exam Eye Exam: Normal appearance - ENT Exam ENT Exam: Mucous Membranes Moist - Respiratory Exam Respiratory Exam: Clear to Ausculation Bilateral, NORMAL BREATHING PATTERN. absent: Wheezes - Cardiovascular Exam Cardiovascular Exam: REGULAR RHYTHM, +S1, +S2. absent: Gallop - GI/Abdominal Exam GI & Abdominal Exam: Soft, Normal Bowel Sounds. absent: Tenderness - Extremities Exam Extremities Exam: Pedal Edema, Tenderness Additional comments: bilateral varicose veins - Neurological Exam Neurological Exam: Alert, Awake, Oriented x3 - Psychiatric Exam Psychiatric exam: Normal Mood - Skin Skin Exam: Intact Assessment and Plan - Assessment and Plan (Free Text) Assessment: DKA AG 19 on admission, currently 14. 1/2NS decreased to 60ml/hr. Lantus 30U SC HS. Novolog 20U SC TIDAC. Neurontin 800mg PO BID. Lisinopril 5mg PO daily. Metformin 500mg PO BID. F/U AM labs. Replace as needed. Bilateral leg pain Negative workup in 04/2017. Continue monitoring. LFT Continue monitoring. Hx of opioid use Methadone 200mg PO daily. Prophylactic measure Pepcid, Lovenox. Mg oxide for both low magnesium and constipation. Management as per Dr. Schulz.
[2017-06-10] MEDS ORDERED: (Lantus) Insulin Glargine, Recombinant SC SCH (15:29)
[2017-06-10] MEDS ORDERED: Sodium Chloride 0.45% 1,000 ML IV SCH (15:29)
[2017-06-10] MEDS: Sodium Chloride 0.45% 1,000 ML IV SCH (16:08)
[2017-06-10 16:31] VITALS: RESP 20
[2017-06-10] MEDS: Magnesium Oxide 400 mg Tab UD PO SCH (17:27)
[2017-06-10] MEDS ORDERED: Magnesium Oxide 400 mg Tab UD PO SCH (18:00)
[2017-06-11] MEDS: Sodium Chloride 0.45% 1,000 ML IV SCH (05:37)
[2017-06-11 06:32] LABS: ALB/GLOB RATIO 1.1 (1.0-2.1); ALKALINE PHOSPHATASE 202 U/L (38-126); ALT/SGPT 111 U/L (9-52); AST/SGOT 117 U/L (14-36); BILIRUBIN,TOTAL 0.8 mg/dL (0.2-1.3); BLOOD UREA NITROGEN 11 mg/dL (7-17); CALCIUM 9.2 mg/dl (8.6-10.4); CARBON DIOXIDE 24 mmol/L (22-30); CHLORIDE 97 mmol/L (98-107); GFR AFRICAN-AMERICAN > 60; GLUCOSE,RANDOM 272 mg/dL (65-105); MAGNESIUM 1.8 mg/dL (1.6-2.3); PHOSPHOROUS 3.6 mg/dL (2.5-4.5); POTASSIUM 4.3 mmol/L (3.6-5.2); SODIUM 134 mmol/L (132-148); TOTAL PROTEIN 6.8 g/dL (6.3-8.3)
[2017-06-11 06:39] LABS: BASO % 0.6 % (0.0-2.0); EOS # 0.2 K/uL (0.0-0.7); EOS % 2.9 % (0.0-4.0); HEMATOCRIT 41.6 % (34.0-47.0); LYMPH # 2.1 K/uL (1.0-4.3); LYMPH % 30.8 % (20.0-40.0); MEAN CELL VOLUME 88.8 fL (81.0-99.0); MEAN CORPUSCULAR HEMOGLOBIN 30.5 pg (27.0-31.0); MEAN CORPUSCULAR HGB CONC 34.4 g/dL (33.0-37.0); MONO # 0.8 K/uL (0.0-0.8); MONO % 11.5 % (0.0-10.0); NRBC % 0.1 % (0.0-2.0); WHITE BLOOD COUNT 6.8 K/uL (4.8-10.8)
--- NOTE | 2017-06-11 07:24 | CP.PCM.PN ---
Subjective - Date & Time of Evaluation Date of Evaluation: 06/11/17 Time of Evaluation: 07:30 - Subjective Subjective: PGY-2 Resident Progress Note for Dr. Schulz Patient seen and examined at bedside. Patient complains of having constipation. Patient denies having headache, fever, chills, shortness of breath, nausea, vomiting, or diarrhea. Objective - Vital Signs/Intake and Output Vital Signs (last 24 hours): Temp Pulse Resp BP Pulse Ox 98.2 F 86 20 146/96 H 96 06/11/17 00:10 06/11/17 00:10 06/11/17 00:10 06/11/17 00:10 06/11/17 00:10 - Medications Medications: Current Medications Enoxaparin Sodium (Lovenox) 40 mg SC DAILY [facility] Last Admin: 06/10/17 09:24 Dose: 40 mg Famotidine (Pepcid) 20 mg PO BID [facility] Last Admin: 06/10/17 17:27 Dose: 20 mg Gabapentin (Neurontin) 800 mg PO BID [facility] Last Admin: 06/10/17 17:27 Dose: 800 mg Sodium Chloride (Sodium Chloride 0.45%) 1,000 mls @ 60 mls/hr IV .[id number] [facility] Last Admin: 06/11/17 05:37 Dose: 60 mls/hr Insulin Aspart (Novolog) 20 unit SC AC [facility] Last Admin: 06/10/17 17:29 Dose: Not Given Insulin Glargine (Lantus) 30 unit SC HS [facility] Last Admin: 06/10/17 21:42 Dose: 30 units Lisinopril (Zestril) 5 mg PO DAILY [facility] Last Admin: 06/10/17 09:25 Dose: 5 mg Magnesium Oxide (Mag-Ox) 400 mg PO BID [facility] Last Admin: 06/10/17 17:27 Dose: 400 mg Metformin HCl (Glucophage) 500 mg PO BID [facility] Last Admin: 06/10/17 17:27 Dose: 500 mg Methadone HCl (Methadose) 200 mg PO DAILY [facility] Last Admin: 06/10/17 09:40 Dose: 200 mg Quetiapine Fumarate (Seroquel) 100 mg PO [facility] Last Admin: 06/10/17 21:40 Dose: 100 mg Tramadol HCl (Ultram) 50 mg PO TID PRN PRN Reason: Pain, moderate (4-7) Last Admin: 06/11/17 05:37 Dose: 50 mg Zolpidem Tartrate (Ambien) 5 mg PO HS PRN PRN Reason: Insomnia Last Admin: 06/10/17 22:41 Dose: 5 mg - Labs Labs: 06/11/17 06:12 06/11/17 06:12 PT 11.5 SECONDS (9.7-12.2) 06/08/17 05:37 INR 1.0 06/08/17 05:37 APTT 30 SECONDS (21-34) 06/08/17 05:37 - Constitutional Appears: Non-toxic, No Acute Distress - Head Exam Head Exam: NORMOCEPHALIC - Eye Exam Eye Exam: Normal appearance - ENT Exam ENT Exam: Mucous Membranes Moist - Respiratory Exam Respiratory Exam: Clear to Ausculation Bilateral, NORMAL BREATHING PATTERN. absent: Respiratory Distress - Cardiovascular Exam Cardiovascular Exam: REGULAR RHYTHM, +S1, +S2. absent: Murmur - GI/Abdominal Exam GI & Abdominal Exam: Soft, Normal Bowel Sounds. absent: Tenderness - Extremities Exam Extremities Exam: Normal Capillary Refill. absent: Normal Inspection ( bilateral varicose veins) - Neurological Exam Neurological Exam: Alert, Awake, Oriented x3 - Psychiatric Exam Psychiatric exam: Normal Affect, Normal Mood - Skin Skin Exam: Intact Assessment and Plan - Assessment and Plan (Free Text) Assessment: DKA Improving AG 19 on admission, today is 13 1/2NS 60ml/hr Lantus 35U SC HS Novolog 20U SC TIDAC Neurontin 800mg PO BID Lisinopril 5mg PO daily Metformin 500mg PO BID Potassium supplemented PO Bilateral leg pain Negative workup in 04/2017 Continue monitoring LFT Continue monitoring Hx of opioid use Methadone 200mg PO daily Prophylactic measure Pepcid, Lovenox Mg oxide for both low magnesium and constipation Colace Disposition: Patient is stable to be discharged home per Dr. Schulz. Patient was instructed to follow up with PMD Dr. Parrish for medication adjustments Management as per Dr. Schulz
[2017-06-11] MEDS: (Novolog) Insulin Aspart, Recombinant 100 u/ml 10 ml vial SC SCH (08:08)
[2017-06-11 08:29] VITALS: BP 135/89; PULSE 78; TEMP 98; O2SAT 97
[2017-06-11] MEDS: Magnesium Oxide 400 mg Tab UD PO SCH (09:01)
[2017-06-11] MEDS: Enoxaparin 40 mg Syringe SC SCH (09:02)
[2017-06-11] MEDS: Methadone 40 mg Tab PO SCH (09:49)
--- NOTE | 2017-06-11 20:14 | CARD ---
APPROVED REPORT EKG Measurement Heart [id number] AL [id number] <Conclusion> Unusual P axis, possible ectopic atrial rhythm Abnormal ECG
== END 2017-06-11 12:01 | disposition home or self-care (01) | DRG 294 ==
LOC: C.ER 04:42 → C.9E 06:34 → C.6T 10:46
PROVIDERS: ADMIT Internal Medicine Pulmonary Disease; ATTEND Internal Medicine Pulmonary Disease
DX: E10.10 Type 1 diabetes mellitus with ketoacidosis without coma (principal); E10.40 Type 1 diabetes mellitus with diabetic neuropathy, unspecified; F11.20 Opioid dependence, uncomplicated; B19.20 Unspecified viral hepatitis C without hepatic coma; I10 Essential (primary) hypertension; F17.210 Nicotine dependence, cigarettes, uncomplicated; K59.00 Constipation, unspecified; F43.10 Post-traumatic stress disorder, unspecified; F41.9 Anxiety disorder, unspecified; F31.9 Bipolar disorder, unspecified; Z79.4 Long term (current) use of insulin

== ENCOUNTER 2017-08-13 07:25 | Emergency (ER) | payer MEDICAID ==
[2017-08-13 07:26] VITALS: BMI 26.4
--- NOTE | 2017-08-13 07:33 | C.PDOC ---
History Of Present Illness Patient is a 46 year old female, with past medical history of neuropathy, presents to Emergency Department for evaluation of pain and swelling to bilateral legs, left more than right, for few days. Patient notes that pain starts at her hips and radiates down to the feet. Patient denies any fall or trauma. Notes having similar pain the past. Notes she is compliant with her Neurontin 800mg. Patient walks with a cane. Accucheck was noted to be 425 during triage, patient reports that her sugar level normally remains in the 300s. (+)nausea (+) diarrhea. Denies any dizziness, lightheadedness, extremity weakness, numbness, abdominal pain, vomiting, chest pain, or shortness of breath. Time Seen by Provider: 08/13/17 07:40 History Per: Patient History/Exam Limitations: no limitations Onset/Duration Of Symptoms: Days (1) Current Symptoms Are (Timing): Still Present Additional History Per: Patient Past Medical History Reviewed: Historical Data, Nursing Documentation, Vital Signs Vital Signs: Last Vital Signs Temp 98.0 F 08/13/17 10:50 Pulse 73 08/13/17 10:50 Resp 18 08/13/17 10:50 BP 137/95 H 08/13/17 10:50 Pulse Ox 97 08/13/17 10:50 - Medical History PMH: Anxiety, Bipolar Disorder, Diabetes, HTN, Post Traumatic Stress Disorder Denies: Chronic Kidney Disease - [facility] Procedures GROUP BELLMAN CAPTAIN FOR SUBSTANCE ABUSE TREATMENT, PSYCHOEDUCATION (04/28/17) GROUP BELLMAN CAPTAIN FOR SUBSTANCE ABUSE, COGNITIVE BEHAVIORAL (04/28/17) INDIV PSYCHOTHERAPY FOR SUBSTANCE ABUSE TREATMENT, SUPPORT (04/28/17) INDIV PSYCHOTHERAPY FOR SUBSTANCE ABUSE, COGNITIV BEHAVIORAL (04/28/17) INDIV PSYCHOTHERAPY FOR SUBSTANCE ABUSE, PSYCHOEDUCATION (04/28/17) Family History: States: Unknown Family Hx - Social History Hx Tobacco Use: Yes Hx Alcohol Use: No Hx Substance Use: Yes (Methadone) - Immunization History Hx Tetanus Toxoid Vaccination: No Hx Influenza Vaccination: No Hx Pneumococcal Vaccination: No Review Of Systems Except As Marked, All Systems Reviewed And Found Negative. Constitutional: Negative for: Fever, Chills Cardiovascular: Negative for: Chest Pain, Palpitations Respiratory: Negative for: Shortness of Breath Gastrointestinal: Positive for: Nausea, Diarrhea. Negative for: Vomiting, Abdominal Pain Genitourinary: Negative for: Dysuria, Frequency, Hematuria Musculoskeletal: Positive for: Leg Pain (bilateral) Neurological: Negative for: Weakness, Numbness, Headache, Dizziness Physical Exam - Physical Exam Appears: Non-toxic, Other (Uncomfortable; obese) Skin: Normal Color, Warm, Dry Head: Atraumatic, Normacephalic Eye(s): bilateral: Normal Inspection, EOMI Oral Mucosa: Moist Neck: Normal ROM, Supple Chest: Symmetrical Cardiovascular: Rhythm Regular, No Murmur Respiratory: Normal Breath Sounds, No Rales, No Rhonchi, No Wheezing Gastrointestinal/Abdominal: Soft, No Tenderness Extremity: Normal ROM, Tenderness (non focal tenderness to bilateral lower extremities), No Pedal Edema, No Calf Tenderness, Capillary Refill (less than 2 seconds), No Deformity, No Swelling Extremity: Bilateral: Atraumatic, Normal Color And Temperature, Pelvis-Stable Pulses: Left Dorsalis Pedis: Normal, Right Dorsalis Pedis: Normal Neurological/Psych: Oriented x3, Normal Speech, Normal Motor, Normal Sensation Gait: Steady ED Course And Treatment - Laboratory Results Result Diagrams: 08/13/17 08:44 08/13/17 08:44 Lab Interpretation: Abnormal Medical Decision Making Medical Decision Making: Impression: leg pain, neuropathy Prior records reviewed: Patient last seen and admitted on 06/08/17 for DKA, neuropathy Plan: * Blood work * UA * Neurontin * Toradol * Valium * IV fluids * Reassess and disposition Progress: Labs reviewed hyperglycemia no acidosis Patient treated for pain and on re-eval she reports moderate improvement of symptoms. Discussed result and plan for discharge with Rx. Patient states she has an appointment with vascular later today. Patient ambulatory with cane in no distress Disposition Counseled Patient/Family Regarding: Studies Performed, Diagnosis, Need For Followup, Rx Given - Disposition Referrals: [facility] [Outside] [facility] [Outside] Disposition: HOME/ ROUTINE Disposition Time: 10:39 Condition: STABLE Additional Instructions: Please continue taking your usual medications for diabetes and neuropathy. Take pain medicine as needed. Follow up with your primary medical doctor or clinic in 2-5 days for further evaluation. Return to the emergency department at any time if symptoms persist or worsen. Prescriptions: diaZEpam [Valium] 2 mg PO Q8 #10 tab Instructions: Peripheral Neuropathy (ED) Forms: [facility] (Vincentian) - POA Present On Arrival: Poor Glycemic Control - Clinical Impression Clinical Impression: Uncontrolled diabetes mellitus, Neuropathy - PA / WATCH ELECTRICIAN / Resident Statement MD/DO has reviewed & agrees with the documentation as recorded. - Scribe Statement The provider has reviewed the documentation as recorded by the Lemuelibjamaal Dewitt All medical record entries made by the Lemuelibjamaal were at my direction and personally dictated by me. I have reviewed the chart and agree that the record accurately reflects my personal performance of the history, physical exam, medical decision making, and the department course for this patient. I have also personally directed, reviewed, and agree with the discharge instructions and disposition.
[2017-08-13 07:48] VITALS: RESP 18
[2017-08-13] MEDS ORDERED: Sodium Chloride 0.9% 1,000 ML IV ONE (07:50)
[2017-08-13] MEDS ORDERED: Sodium Chloride 0.9% 1,000 ML ONE (08:17)
[2017-08-13 08:42] LABS: RBC URINE 1 /hpf (0-3); URINE BILIRUBIN NEGATIVE (NEGATIVE); URINE BLOOD NEGATIVE (NEGATIVE); URINE COLOR Yellow (YELLOW); URINE GLUCOSE (UA) 3+ mg/dL (Normal); URINE KETONE TRACE mg/dL (NEGATIVE); URINE LEUKOCYTE ESTERASE NEG Leu/uL (Negative); URINE PROTEIN NEGATIVE (NEGATIVE); WBC URINE 2 /hpf (0-5)
[2017-08-13 08:57] LABS: BASO # 0.1 K/uL (0.0-0.2); EOS # 0.1 K/uL (0.0-0.7); EOS % 1.2 % (0.0-4.0); HEMATOCRIT 44.4 % (34.0-47.0); LYMPH # 2.1 K/uL (1.0-4.3); LYMPH % 27.1 % (20.0-40.0); MEAN CORPUSCULAR HEMOGLOBIN 30.3 pg (27.0-31.0); MEAN CORPUSCULAR HGB CONC 34.4 g/dL (33.0-37.0); MEAN PLATELET VOLUME 9.9 fL (7.2-11.7); MONO # 0.3 K/uL (0.0-0.8); MONO % 4.3 % (0.0-10.0); NRBC % 0.2 % (0.0-2.0); RED CELL DISTRIBUTION WIDTH 12.8 % (11.5-14.5); WHITE BLOOD COUNT 7.7 K/uL (4.8-10.8)
[2017-08-13 09:03] LABS: CHLORIDE 92 mmol/L (98-107); POTASSIUM 4.3 mmol/L (3.6-5.2); SODIUM 130 mmol/L (132-148)
[2017-08-13 09:05] LABS: GFR AFRICAN-AMERICAN > 60
[2017-08-13 09:06] LABS: ALB/GLOB RATIO 0.9 (1.0-2.1); ALKALINE PHOSPHATASE 239 U/L (38-126); ALT/SGPT 30 U/L (9-52); AST/SGOT 22 U/L (14-36); BILIRUBIN,TOTAL 0.9 mg/dL (0.2-1.3); BLOOD UREA NITROGEN 10 mg/dL (7-17); CARBON DIOXIDE 25 mmol/L (22-30); TOTAL PROTEIN 8.9 g/dL (6.3-8.3)
[2017-08-13 09:07] LABS: CALCIUM 9.7 mg/dl (8.6-10.4)
[2017-08-13 09:11] LABS: GLUCOSE,RANDOM 449 mg/dL (65-105)
[2017-08-13] MEDS ORDERED: (Novolin R) Insulin Human Regular 100 units/ml vial IV ONE (09:13)
[2017-08-13] MEDS ORDERED: (Novolin R) Insulin Human Regular 100 units/ml vial ONE (09:33)
[2017-08-13 10:50] VITALS: BP 137/95; PULSE 73; TEMP 98; O2SAT 97
== END 2017-08-13 11:06 | disposition home or self-care (01) ==
LOC: C.ER 07:25
DX: E11.65 Type 2 diabetes mellitus with hyperglycemia (principal); E11.40 Type 2 diabetes mellitus with diabetic neuropathy, unspecified
CPT/HCPCS: 80053; 81001; 82009; 82948; 85025; 96361; 96374; 96375; 99284; J1885; J7040

== ENCOUNTER 2018-03-31 13:32 | Emergency (ER) | payer MEDICAID ==
[2018-03-31 13:32] VITALS: BMI 26.2
[2018-03-31] MEDS ORDERED: Sodium Chloride 0.9% 1,000 ML IV ONE ×2 (13:50→16:06)
[2018-03-31] MEDS ORDERED: (Novolin R) Insulin Human Regular 100 units/ml vial IV STA ×2 (13:53→13:54)
[2018-03-31 14:45] LABS: VENOUS BLOOD GAS BASE EXCESS 4.3 mmol/L (0.0-2.0); VENOUS BLOOD GAS PCO2 47 mmHg (40-60); VENOUS BLOOD GAS PO2 44 mm/Hg (30-55); VENOUS BLOOD PH 7.41 (7.32-7.43)
[2018-03-31] MEDS ORDERED: Sodium Chloride 0.9% 1,000 ML ONE ×2 (14:48→16:11)
[2018-03-31] MEDS ORDERED: (Novolin R) Insulin Human Regular 100 units/ml vial ONE (14:48)
[2018-03-31 14:53] LABS: BASO # 0.1 K/uL (0.0-0.2); BASO % 1.2 % (0.0-2.0); EOS # 0.2 K/uL (0.0-0.7); EOS % 1.6 % (0.0-4.0); HEMOGLOBIN 13.8 g/dL (11.0-16.0); LYMPH # 3.1 K/uL (1.0-4.3); LYMPH % 31.4 % (20.0-40.0); MEAN CELL VOLUME 88.3 fL (81.0-99.0); MEAN CORPUSCULAR HEMOGLOBIN 29.8 pg (27.0-31.0); MEAN CORPUSCULAR HGB CONC 33.8 g/dL (33.0-37.0); MEAN PLATELET VOLUME 8.9 fL (7.2-11.7); MONO # 0.6 K/uL (0.0-0.8); MONO % 5.5 % (0.0-10.0); NEUT % 60.3 % (50.0-75.0); NRBC % 0.1 % (0.0-2.0); RBC 4.64 Mil/uL (3.80-5.20); RED CELL DISTRIBUTION WIDTH 13.6 % (11.5-14.5)
[2018-03-31 15:10] LABS: ALBUMIN 4.2 g/dL (3.5-5.0); ALT/SGPT 40 U/L (9-52); AST/SGOT 43 U/L (14-36); BLOOD UREA NITROGEN 13 mg/dL (7-17); CALCIUM 9.9 mg/dl (8.6-10.4); GFR AFRICAN-AMERICAN > 60; GFR NON-AFRICAN AMERICAN > 60
[2018-03-31 15:13] LABS: ACETAMINOPHEN < 10.0 ug/mL (10.0-30.0); SALICYLATE < 1.0 mg/dL 1
--- NOTE | 2018-03-31 16:11 | C.PDOC ---
History Of Present Illness 47 y/o female brought to ed by EMS after being found in decreased level of consciousness at bus stop. Patient given IV push narcan on route, had [id number] response and at ED became agitated. Patient alert and awake, admits to taking 200mg of Methadone daily. Patient has history of IDDM, reports taking insulin today and denies other drug use, trauma, pain or any other complaints at this time. Chief Complaint (Nursing): Substance Abuse History Per: Patient History/Exam Limitations: no limitations Onset/Duration Of Symptoms: Days Current Symptoms Are (Timing): Still Present Suicide/Self Injury Attempted (Context): None Past Medical History Reviewed: Historical Data, Nursing Documentation, Vital Signs Vital Signs: Last Vital Signs Temp 97.6 F 03/31/18 20:18 Pulse 78 03/31/18 20:18 Resp 18 03/31/18 20:18 BP 130/97 H 03/31/18 20:18 Pulse Ox 98 03/31/18 20:18 - Medical History PMH: Anxiety, Bipolar Disorder, Diabetes, HTN, Hypercholesterolemia, Osteoporosis, Peripheral Edema (left leg), Post Traumatic Stress Disorder Surgical History: No Surg Hx - [facility] Procedures GROUP GAMBLING BOX PERSON FOR SUBSTANCE ABUSE TREATMENT, PSYCHOEDUCATION (04/28/17) GROUP GAMBLING BOX PERSON FOR SUBSTANCE ABUSE, COGNITIVE BEHAVIORAL (04/28/17) INDIV PSYCHOTHERAPY FOR SUBSTANCE ABUSE TREATMENT, SUPPORT (04/28/17) INDIV PSYCHOTHERAPY FOR SUBSTANCE ABUSE, COGNITIV BEHAVIORAL (04/28/17) INDIV PSYCHOTHERAPY FOR SUBSTANCE ABUSE, PSYCHOEDUCATION (04/28/17) Family History: States: No Known Family Hx - Social History Hx Tobacco Use: Yes Hx Alcohol Use: No Hx Substance Use: Yes (Methadone) - Immunization History Hx Tetanus Toxoid Vaccination: No Hx Influenza Vaccination: No Hx Pneumococcal Vaccination: No Review Of Systems Constitutional: Negative for: Fever, Chills Cardiovascular: Negative for: Chest Pain Respiratory: Negative for: Shortness of Breath Gastrointestinal: Negative for: Nausea, Vomiting Skin: Negative for: Rash Psych: Negative for: Suicidal ideation, Withdrawal Physical Exam - Physical Exam Appears: Non-toxic, Agitated Skin: Warm, Dry, No Rash Head: Atraumatic, Normacephalic Eye(s): bilateral: Normal Inspection Oral Mucosa: Moist Neck: Normal ROM, Supple Cardiovascular: Rhythm Regular Respiratory: Normal Breath Sounds, No Rales, No Rhonchi, No Wheezing Gastrointestinal/Abdominal: Soft, No Tenderness, No Guarding, No Rebound Neurological/Psych: Oriented x3, Normal Speech, Normal Cognition ED Course And Treatment - Laboratory Results Result Diagrams: 03/31/18 14:45 03/31/18 14:45 O2 Sat by Pulse Oximetry: 98 (RA) Pulse Ox Interpretation: Normal Disposition - Disposition Referrals: [facility] Negin Recesar, [Non-Staff] - Disposition: HOME/ ROUTINE Disposition Time: 16:20 Condition: GOOD Additional Instructions: JOSE ALFREDO MILLER, thank you for letting us take care of you today. Your provider was Brandon Mejía DO. The emergency medical care you received today was directed at your acute symptoms. If you were prescribed any medication, please fill it and take as directed. It may take several days for your symptoms to resolve. Return to the Emergency Department if your symptoms worsen, do not improve, or if you have any other problems. Please contact your doctor or call one of the physicians/clinics you have been referred to that are listed on the Patient Visit Information form that is included in your discharge packet. Bring any paperwork you were given at discharge with you along with any medications you are taking to your follow up visit. Our treatment cannot replace ongoing medical care by a primary care provider outside of the emergency department. Thank you for allowing the [facility] team to be part of your care today. Follow up with your primary care doctor in 1-2 days for re-evaluation and further management. Instructions: Hyperglycemia, Adult (DC), Opioid Use Disorder Forms: [facility] (Turkmen) - Clinical Impression Clinical Impression: Drug abuse, Hyperglycemia due to type 1 diabetes mellitus - Scribe Statement The provider has reviewed the documentation as recorded by the Scribjamaal Robbins All medical record entries made by the Scribe were at my direction and personally dictated by me. I have reviewed the chart and agree that the record accurately reflects my personal performance of the history, physical exam, medical decision making, and the department course for this patient. I have also personally directed, reviewed, and agree with the discharge instructions and disposition.
[2018-03-31 18:36] LABS: HCG,QUALITATIVE URINE NEGATIVE (NEGATIVE); SQUAMOUS EPITHIAL < 1 /hpf (0-5); URINE BILIRUBIN NEGATIVE (NEGATIVE); URINE BLOOD NEGATIVE (NEGATIVE); URINE CLARITY Clear (Clear); URINE COLOR Yellow (YELLOW); URINE GLUCOSE (UA) 3+ mg/dL (Normal); URINE LEUKOCYTE ESTERASE NEG Leu/uL (Negative); URINE PROTEIN NEGATIVE (NEGATIVE); URINE UROBILINOGEN NORMAL mg/dL (0.2-1.0)
[2018-03-31 18:45] LABS: BARBITURATES, UR NEGATIVE (NEGATIVE); BENZODIAZEPINES, UR NEGATIVE (NEGATIVE); OPIATES, UR NEGATIVE (NEGATIVE); PHENCYCLIDINE, UR NEGATIVE (NEGATIVE)
[2018-03-31 20:19] VITALS: BP 130/97; PULSE 78; RESP 18; TEMP 97.6; O2SAT 98
== END 2018-03-31 20:19 | disposition home or self-care (01) ==
LOC: C.ER 13:32
DX: E10.65 Type 1 diabetes mellitus with hyperglycemia (principal); Z79.4 Long term (current) use of insulin; F19.10 Other psychoactive substance abuse, uncomplicated; I10 Essential (primary) hypertension; E78.00 Pure hypercholesterolemia, unspecified; F31.9 Bipolar disorder, unspecified
CPT/HCPCS: 80053; 80320; 80324; 80329; 80345; 80346; 80349; 80353; 80358; 80361; 81001; 82009; 82803; 82948; 83992; 84703; 85025; 96360; 99285; J7030

== ENCOUNTER 2018-10-01 17:37 | Emergency (ER) | payer MEDICAID ==
[2018-10-01 17:37] VITALS: BMI 26.2
--- NOTE | 2018-10-01 19:15 | C.PDOC ---
History Of Present Illness 48 year old female presents to the ED c/o intermittent abdominal pain associated with vomiting and diarrhea. Patient reports having similar symptoms in the past. Patient had negative CT scan in May 2018. Patient denies fever, chills, dysuria, hematuria, back pain, rash, weakness, numbness. Time Seen by Provider: 10/01/18 19:14 Chief Complaint (Nursing): Abdominal Pain History Per: Patient History/Exam Limitations: no limitations Onset/Duration Of Symptoms: Days Current Symptoms Are (Timing): Still Present Location Of Pain/Discomfort: Diffuse Quality Of Discomfort: "Pain" Associated Symptoms: Nausea, Vomiting, Diarrhea. denies: Urinary Symptoms Recent travel outside of the [place]: No Additional History Per: Patient Abnormal Vaginal Bleeding: No Past Medical History Reviewed: Historical Data, Nursing Documentation, Vital Signs Vital Signs: Last Vital Signs Temp 97.6 F 10/01/18 17:47 Pulse 85 10/01/18 17:47 Resp 18 10/01/18 17:47 BP 157/105 H 10/01/18 17:47 Pulse Ox 100 10/01/18 17:47 - Medical History PMH: Anxiety, Bipolar Disorder, Depression, Diabetes, HTN, Hypercholesterolemia, Osteoporosis, Peripheral Edema (left leg), Post Traumatic Stress Disorder Denies: Anemia, Asthma, HIV, Paranoia, Chronic Kidney Disease, Schizophrenia Surgical History: No Surg Hx - [facility] Procedures GROUP PRINCIPAL ARCHITECT FOR SUBSTANCE ABUSE TREATMENT, PSYCHOEDUCATION (04/28/17) GROUP PRINCIPAL ARCHITECT FOR SUBSTANCE ABUSE, COGNITIVE BEHAVIORAL (04/28/17) INDIV PSYCHOTHERAPY FOR SUBSTANCE ABUSE TREATMENT, SUPPORT (04/28/17) INDIV PSYCHOTHERAPY FOR SUBSTANCE ABUSE, COGNITIV BEHAVIORAL (04/28/17) INDIV PSYCHOTHERAPY FOR SUBSTANCE ABUSE, PSYCHOEDUCATION (04/28/17) Family History: States: Unknown Family Hx - Social History Hx Tobacco Use: Yes Hx Alcohol Use: No Hx Substance Use: Yes (on methadone program) - Immunization History Hx Tetanus Toxoid Vaccination: No Hx Influenza Vaccination: No Hx Pneumococcal Vaccination: No Review Of Systems Constitutional: Negative for: Fever, Chills Cardiovascular: Negative for: Chest Pain Respiratory: Negative for: Shortness of Breath Gastrointestinal: Positive for: Nausea, Vomiting, Abdominal Pain, Diarrhea Genitourinary: Negative for: Dysuria, Hematuria Musculoskeletal: Negative for: Back Pain Skin: Negative for: Rash Neurological: Negative for: Weakness, Numbness Physical Exam - Physical Exam Appears: Non-toxic, No Acute Distress Skin: Warm, Dry Head: Normacephalic Eye(s): bilateral: Normal Inspection Oral Mucosa: Dry Neck: Supple Chest: Symmetrical Cardiovascular: Rhythm Regular Respiratory: No Rales, No Rhonchi, No Wheezing Gastrointestinal/Abdominal: Soft, Tenderness (diffuse ), No Guarding, No Rebound Back: No CVA Tenderness Extremity: Normal ROM Extremity: Bilateral: Atraumatic, Normal Color And Temperature, Normal ROM Pulses: Left Dorsalis Pedis: Normal, Right Dorsalis Pedis: Normal Neurological/Psych: Oriented x3, Normal Speech, Normal Cognition Gait: Steady ED Course And Treatment - Laboratory Results Result Diagrams: 10/01/18 19:46 10/01/18 20:34 O2 Sat by Pulse Oximetry: 100 (On RA) Pulse Ox Interpretation: Normal - CT Scan/US Ct abd/pelvis Other Rad Studies (CT/US): Read By Radiologist, Radiology Report Reviewed CT/US Interpretation: EXAM: CT Abdomen and Pelvis with IV contrast. CLINICAL HISTORY: Left lower abd pain. TECHNIQUE: Axial computed tomography images of the abdomen and pelvis with intravenous contrast. CONTRAST: With intravenous contrast. COMPARISON: None provided. FINDINGS: LUNG BASES: The lung bases appear clear. No pleural effusions are seen. LIVER: Unremarkable. GALLBLADDER AND BILE DUCTS: The gallbladder appears within normal limits. No radioopaque gallstones are seen. No biliary ductal dilatation is evident. PANCREAS: Unremarkable. SPLEEN: Unremarkable. ADRENAL GLANDS: Unremarkable. KIDNEYS, URETERS, AND BLADDER: The kidneys appear within normal limits. There is no hydronephrosis or hydroureter. No urinary calculi are seen. STOMACH AND BOWEL: There is diffuse diverticulosis noted involving descending and sigmoid colon. No evidence of acute diverticulitis. APPENDIX: No evidence of acute appendicitis on CT examination. PERITONEUM: No free fluid. No free air. LYMPH NODES: No lymphadenopathy is evident. REPRODUCTIVE: Left adnexal calcification is noted. The uterus and ovaries are otherwise WNL. VASCULATURE: No evidence of abdominal aortic aneurysm. BONES: No aggressive appearing osseous lesion. No acute osseous pathology evident. IMPRESSION: No acute pathology. Diverticulosis noted involving descending and sigmoid colon. No evidence of acute diverticulitis. . Electronically signed on Oct 02, 2018 12 :27:24 AM COT by: Brandon Romero M.D., GENTRY Certified By ABR & CBCCT. Fellowship Trained MRI and CT Specialist Progress Note: Plan: - Labs. - Protonix 40 mg IVP. - IV fluids. - zofran 4 mg IVP. - UA Disposition Discussed With DrPhillip: Gregorio Hankins Comment: accepted the pt on his service and took over the care at 3:03 AM Doctor Will See Patient In The: ED Counseled Patient/Family Regarding: Studies Performed, Diagnosis - Disposition Disposition: HOSPITALIZED Disposition Time: 19:15 Condition: FAIR Forms: [facility] (Finnish) - POA Present On Arrival: Poor Glycemic Control - Clinical Impression Clinical Impression: Abdominal pain, Diarrhea, Pancreatitis, UTI (urinary tract infection) - Scribe Statement The provider has reviewed the documentation as recorded by the Scribe Rush Wesley All medical record entries made by the Scribe were at my direction and personally dictated by me. I have reviewed the chart and agree that the record accurately reflects my personal performance of the history, physical exam, medical decision making, and the department course for this patient. I have also personally directed, reviewed, and agree with the discharge instructions and disposition. Decision To Admit - Pt Status Changed To: Hospital Disposition Of: Inpatient - Admit Certification Admit to Inpatient:: After my assessment, the patient will require hospitalization for at least two midnights. This is because of the severity of symptoms shown, intensity of services needed, and/or the medical risk in this patient being treated as an outpatient. - InPatient: Physician Admission Certification:: After my assessment, the patient will require hospitalization for at least two midnights. This is because of the severity of symptoms shown, intensity of services needed, and/or the medical risk in this patient being treated as an outpatient. - . Bed Request Type: Regular Admitting Physician: Gregorio Hankins Patient Diagnosis: Abdominal pain, Diarrhea, Pancreatitis, UTI (urinary tract infection)
[2018-10-01] MEDS ORDERED: Sodium Chloride 0.9% 1,000 ML IV ONE (19:18)
[2018-10-01 20:00] LABS: BASO # 0.1 K/uL (0.0-0.2); BASO % 1.2 % (0.0-2.0); EOS # 0.3 K/uL (0.0-0.7); EOS % 3.4 % (0.0-4.0); HEMOGLOBIN 13.4 g/dL (11.0-16.0); LYMPH % 42.2 % (20.0-40.0); MEAN CELL VOLUME 88.2 fL (81.0-99.0); MEAN CORPUSCULAR HEMOGLOBIN 29.1 pg (27.0-31.0); MEAN PLATELET VOLUME 8.8 fL (7.2-11.7); MONO # 0.4 K/uL (0.0-0.8); MONO % 4.3 % (0.0-10.0); NEUT # 4.7 K/uL (1.8-7.0); NEUT % 48.9 % (50.0-75.0); RBC 4.62 Mil/uL (3.80-5.20); RED CELL DISTRIBUTION WIDTH 13.9 % (11.5-14.5); WHITE BLOOD COUNT 9.6 K/uL (4.8-10.8)
[2018-10-01 20:15] LABS: HCG,QUALITATIVE URINE NEGATIVE (NEGATIVE)
[2018-10-01 20:22] LABS: SQUAMOUS EPITHIAL 10 /hpf (0-5); URINE BACTERIA OCC (<OCC); URINE BILIRUBIN NEGATIVE (NEGATIVE); URINE BLOOD 1+ (NEGATIVE); URINE CLARITY Hazy (Clear); URINE COLOR Yellow (YELLOW); URINE GLUCOSE (UA) 3+ mg/dL (Normal); URINE LEUKOCYTE ESTERASE 2+ Leu/uL (Negative); URINE PROTEIN NEGATIVE (NEGATIVE); URINE UROBILINOGEN NORMAL mg/dL (0.2-1.0)
[2018-10-01] MEDS ORDERED: Iohexol 240 (50 ml) PO ONE (20:22)
[2018-10-01] MEDS ORDERED: Ciprofloxacin 400mg/200ml D5W 400 MG/200 ML BAG IVPB STA (20:30)
[2018-10-01] MEDS ORDERED: Iohexol 240 (50 ml) ONE (20:38)
[2018-10-01 20:53] LABS: ALB/GLOB RATIO 1.1 (1.0-2.1); ALBUMIN 3.8 g/dL (3.5-5.0); ALT/SGPT 34 U/L (9-52); AST/SGOT 36 U/L (14-36); BLOOD UREA NITROGEN 18 mg/dL (7-17); GFR NON-AFRICAN AMERICAN > 60; LIPASE 498 U/L (23-300)
[2018-10-01] MEDS ORDERED: Ciprofloxacin 400mg/200ml D5W 400 MG/200 ML BAG IVPB ONE (21:26)
[2018-10-01] MEDS ORDERED: Iodixanol 320 MG/ML 100 ML BOTTLE IV ONE (23:03)
[2018-10-02] MEDS ORDERED: metroNIDAZOLE IV 500 mg/100 ml 500 MG/100 ML BAG IVPB SCH (00:30)
[2018-10-02] MEDS ORDERED: metroNIDAZOLE IV 500 mg/100 ml 500 MG/100 ML BAG IVPB STA (00:47)
[2018-10-02] MEDS ORDERED: metroNIDAZOLE IV 500 mg/100 ml 500 MG/100 ML BAG ONE (00:51)
[2018-10-02] MEDS ORDERED: Dextrose 50% SYRINGE Inj (50 ml) IV PRN (02:57)
[2018-10-02] MEDS ORDERED: Glucagon Recombinant 1 mg Inj IM PRN (02:57)
[2018-10-02] MEDS ORDERED: Sodium Chloride 0.9% 1,000 ML IV SCH ×2 (03:15→05:45)
[2018-10-02] MEDS ORDERED: Sodium Chloride 0.9% 1,000 ML ONE (03:39)
--- NOTE | 2018-10-02 04:03 | CP.PCM.HP ---
<Nathaniel Escobar - Last Filed: 10/02/18 07:01> History of Present Illness - History of Present Illness History of Present Illness: H&P note for Dr Hankins Cc: abdominal pain Patient is a 48 yo Female with pmhx of DM, heroin abuse on methadone for the past 6 years, Neuropathy, HTN and hepatitis C that came to ER for worsening abdominal pain today. Patient has been experiencing abdominal pain along with diarrhea in the past 3-4 months. Patient was sent to the ER by her PMD Dr Doty. Patient states her pain is in left lower quadrant area being the worst, states moving makes it worst. Patient admits to several episodes of diarrhea about every 4 days. Patient says bowels are loose dark stools, but has not noticed bright red blood in the stools. Patient admits to having two epidsodes of vomiting, as well as burping that smells like rotten eggs. Patient admits to having taken Peptobismol 3-4 times a day for diarrhea, and one time of imodium which does not help. Patient states her feet are cold and they hurt. Patient denies fevers, chills, dysuria, hematuria, back pain, rash, weakness, numbness. PMD: Pooja All: Penicillin, Bactrim (rashes and blisters) Pmhx: as stated in HPI Shx: cyst removal in right mid thoracic back Meds: Insulin, Metformin, Methadone QDaily. Did not specify all her medications at this time Shx: 1 pack a day for 20 years, denies alcohol or illicit drug use Fhx: DM ( mother, aunt) Present on Admission - Present on Admission Any Indicators Present on Admission: No Review of Systems - Review of Systems All systems: reviewed and no additional remarkable complaints except Review of Systems: as mentioned in HPI Past Patient History - Tetanus Immunizations Tetanus Immunization: Unknown - Past Medical History & Family History Past Medical History?: Yes - Past Social History Smoking Status: Light Smoker < 10 Cigarettes Daily - CARDIAC Hx Hypercholesterolemia: Yes Hx Hypertension: Yes Hx Peripheral Edema: Yes (left leg) - PULMONARY Hx Asthma: No - NEUROLOGICAL Hx Neurological Disorder: No - HEENT Hx HEENT Problems: No - RENAL Hx Chronic Kidney Disease: No - ENDOCRINE/METABOLIC Hx Endocrine Disorders: Yes Hx Diabetes Mellitus Type 2: Yes - HEMATOLOGICAL/ONCOLOGICAL Hx Anemia: No Hx Human Immunodeficiency Virus (HIV): No - INTEGUMENTARY Hx Dermatological Problems: No - MUSCULOSKELETAL/RHEUMATOLOGICAL Hx Osteoporosis: Yes - GASTROINTESTINAL Hx Gastrointestinal Disorders: No Hx Fatty Liver Disease: Yes Hx Nausea: Yes Hx Vomiting: Yes - GENITOURINARY/GYNECOLOGICAL Hx Genitourinary Disorders: No - PSYCHIATRIC Hx Anxiety: Yes Hx Bipolar Disorder: Yes Hx Depression: Yes Hx Paranoia: No Hx Post Traumatic Stress Disorder: Yes Hx Schizophrenia: No Hx Substance Use: Yes (on methadone program) - SURGICAL HISTORY Hx Surgeries: Yes Other/Comment: back and stomach - ANESTHESIA Hx Anesthesia: Yes (Local) Hx Anesthesia Reactions: No Hx Malignant Hyperthermia: No Meds Allergies/Adverse Reactions: Allergies Allergy/AdvReac Type Severity Reaction Status Date / Time sulfamethoxazole Allergy Severe RASH Verified 10/01/18 17:53 [From Bactrim] trimethoprim [From Bactrim] Allergy Severe RASH Verified 10/01/18 17:53 Penicillins Allergy PAIN Verified 03/31/18 13:42 Physical Exam - Constitutional Appears: Non-toxic, No Acute Distress - Head Exam Head Exam: ATRAUMATIC, NORMAL INSPECTION, NORMOCEPHALIC - Eye Exam Eye Exam: EOMI, Normal appearance - ENT Exam ENT Exam: Mucous Membranes Moist, Normal Exam - Neck Exam Neck exam: Positive for: Normal Inspection - Respiratory Exam Respiratory Exam: Clear to Auscultation Bilateral, NORMAL BREATHING PATTERN. absent: Rales, Rhonchi, Wheezes - Cardiovascular Exam Cardiovascular Exam: REGULAR RHYTHM, +S1, +S2 - GI/Abdominal Exam GI & Abdominal Exam: Distended, Soft, Tenderness. absent: Guarding, Rebound Additional comments: diffuse tenderness on superficial palpation Right circular wound, healed, non tender, non erythematous or warm ( 2/2 burning herself with cigarette) - Extremities Exam Extremities exam: Positive for: full ROM, normal inspection, pedal pulses present - Back Exam Back exam: NORMAL INSPECTION, tenderness (lower back area tenderness on sup palpation ) Additional comments: right mid thoracic lower thoracic area healed incision - Neurological Exam Neurological exam: Alert, CN II-XII Intact, Oriented x3 - Psychiatric Exam Psychiatric exam: Anxious - Skin Skin Exam: Dry, Intact, Normal Color, Warm Results - Vital Signs Recent Vital Signs: Last Vital Signs Temp 99.1 F 10/02/18 03:16 Pulse 92 H 10/02/18 03:16 Resp 18 10/02/18 03:16 BP 163/115 H 10/02/18 03:16 Pulse Ox 100 10/02/18 03:16 - Labs Result Diagrams: 10/02/18 06:04 10/01/18 20:34 Labs: Laboratory Results - last 24 hr 10/01/18 10/01/18 10/01/18 19:46 19:59 20:34 WBC 9.6 RBC 4.62 Hgb 13.4 Hct 40.7 MCV 88.2 MCH 29.1 MCHC 33.0 RDW 13.9 Plt Count 223 MPV 8.8 Neut % (Auto) 48.9 L Lymph % (Auto) 42.2 H [place] % (Auto) 4.3 Eos % (Auto) 3.4 Baso % (Auto) 1.2 Neut # (Auto) 4.7 Lymph # (Auto) 4.0 [place] # (Auto) 0.4 Eos # (Auto) 0.3 Baso # (Auto) 0.1 Sodium 135 Potassium 4.0 Chloride 98 Carbon Dioxide 24 Anion Gap 17 BUN 18 H Creatinine 0.7 Est GFR ( Amer) > 60 Est GFR (Non-Af Amer) > 60 POC Glucose (mg/dL) Random Glucose 378 H Calcium 9.0 Total Bilirubin 0.3 AST 36 ALT 34 Alkaline Phosphatase 192 H D Total Protein 7.3 Albumin 3.8 Globulin 3.4 Albumin/Globulin Ratio 1.1 Lipase 498 H Urine Color Yellow Urine Clarity Hazy Urine pH 5.0 Ur Specific [place] 1.016 Urine Protein Negative Urine Glucose (UA) 3+ H Urine Ketones Negative Urine Blood 1+ H Urine Nitrate Negative Urine Bilirubin Negative Urine Urobilinogen Normal Ur Leukocyte Esterase 2+ H Urine WBC (Auto) 93 H Urine RBC (Auto) 20 H Ur Squamous Epith Cells 10 H Urine Bacteria Occ H Urine Yeast (Budding) Many H Urine HCG, Qual Negative 10/02/18 03:08 WBC RBC Hgb Hct MCV MCH MCHC RDW Plt Count MPV Neut % (Auto) Lymph % (Auto) [place] % (Auto) Eos % (Auto) Baso % (Auto) Neut # (Auto) Lymph # (Auto) [place] # (Auto) Eos # (Auto) Baso # (Auto) Sodium Potassium Chloride Carbon Dioxide Anion Gap BUN Creatinine Est GFR ( Amer) Est GFR (Non-Af Amer) POC Glucose (mg/dL) 191 H Random Glucose Calcium Total Bilirubin AST ALT Alkaline Phosphatase Total Protein Albumin Globulin Albumin/Globulin Ratio Lipase Urine Color Urine Clarity Urine pH Ur Specific [place] Urine Protein Urine Glucose (UA) Urine Ketones Urine Blood Urine Nitrate Urine Bilirubin Urine Urobilinogen Ur Leukocyte Esterase Urine WBC (Auto) Urine RBC (Auto) Ur Squamous Epith Cells Urine Bacteria Urine Yeast (Budding) Urine HCG, Qual Assessment & Plan - Assessment and Plan (Free Text) Plan: Abdominal pain/ nausea/diarrhea r/o Inflammatory bowel syndrome - CT: no acute pathology, diverticulosis noted involving descending and sigmoid colon. No evidence of acute diverticulitis - Cipro and Flagyl x1 given in ED - Stool culture - OVA and parasite - Stool leukocyte - GI consult - help is appreciated - NPO diet - follow up am labs CBC, CMP - B12, folic acid, vitD DM - levemir 20 HS - ISS low dose - accuchecks Hx of Heroin abuse, on methadone - Psych consult - Dr Huizar - help is appreciated - Confirm Methadone dosage with clinic in the am DVT - Heparin 5000 SC Q12HR - NPO diet -Tylenol PRN Pain - Zofran PRN Nausea/vomiting Plan discussed with Dr Cr Escobar, PGY-1 - Date & Time Date: 10/02/18 Time: 03:00 <Gregorio Hankins P - Last Filed: 10/04/18 07:22> Results - Vital Signs Recent Vital Signs: Last Vital Signs Temp 97.9 F 10/02/18 05:07 Pulse 92 H 10/02/18 05:35 Resp 20 10/02/18 05:35 BP 187/110 H 10/02/18 05:35 Pulse Ox 100 10/02/18 05:35 - Labs Result Diagrams: 10/02/18 06:04 10/01/18 20:34 Attending/Attestation - Attestation I have personally seen and examined this patient.: Yes I have fully participated in the care of the patient.: Yes I have reviewed all pertinent clinical information: Yes Notes (Text): 10/04/18 07:19 Chronic diarrhea and abd pain related with diarrhea, clinically not malnourished, no weight loss, no signs of infection clinically, fpc high dose exposure to opiods. Also suspect slow grastric emptying, gastritis. Patient advised will need regular f/u with GI residential property consultant as out patient for trial of therapies clinically suspect IBS, gastritis. Patient was being observed and gi to evaluate.
[2018-10-02 05:10] VITALS: TEMP 97.9
[2018-10-02 05:36] VITALS: BP 187/110; PULSE 92; RESP 20; O2SAT 100
[2018-10-02 06:12] LABS: BASO # 0.1 K/uL (0.0-0.2); BASO % 0.7 % (0.0-2.0); EOS # 0.3 K/uL (0.0-0.7); EOS % 2.7 % (0.0-4.0); HEMOGLOBIN 13.4 g/dL (11.0-16.0); LYMPH # 2.8 K/uL (1.0-4.3); LYMPH % 26.8 % (20.0-40.0); MEAN CELL VOLUME 89.3 fL (81.0-99.0); MEAN CORPUSCULAR HEMOGLOBIN 29.6 pg (27.0-31.0); MEAN CORPUSCULAR HGB CONC 33.2 g/dL (33.0-37.0); MEAN PLATELET VOLUME 9.1 fL (7.2-11.7); MONO # 0.6 K/uL (0.0-0.8); MONO % 6.1 % (0.0-10.0); NEUT # 6.7 K/uL (1.8-7.0); NEUT % 63.7 % (50.0-75.0); RBC 4.51 Mil/uL (3.80-5.20); RED CELL DISTRIBUTION WIDTH 13.7 % (11.5-14.5); WHITE BLOOD COUNT 10.5 K/uL (4.8-10.8)
[2018-10-02 07:18] LABS: FOLATE 19.3 ng/mL
--- NOTE | 2018-10-02 07:26 | CP.PCM.DIS ---
Provider - Provider Date of Admission: 10/02/18 03:02 Attending physician: Gregorio Hankins MD Consults: 10/02/18 05:42 Psychiatry Consult Routine Comment: Consulting Provider: Araceli Vargas Consulting Physician: Aarceli Vargas Reason for Consult: Pt on Methadone for hx of heroin use Time Spent in preparation of Discharge (in minutes): 45 Diagnosis - Discharge Diagnosis (1) Abdominal pain Status: Acute (2) DM2 (diabetes mellitus, type 2) Status: Acute (3) Drug abuse Status: Acute Hospital Course - Lab Results Lab Results: Most Recent Lab Values WBC 10.5 K/uL (4.8-10.8) 10/02/18 06:04 RBC 4.51 Mil/uL (3.80-5.20) 10/02/18 06:04 Hgb 13.4 g/dL (11.0-16.0) 10/02/18 06:04 Hct 40.3 % (34.0-47.0) 10/02/18 06:04 MCV 89.3 fL (81.0-99.0) 10/02/18 06:04 MCH 29.6 pg (27.0-31.0) 10/02/18 06:04 MCHC 33.2 g/dL (33.0-37.0) 10/02/18 06:04 RDW 13.7 % (11.5-14.5) 10/02/18 06:04 Plt Count 226 K/uL (130-400) 10/02/18 06:04 MPV 9.1 fL (7.2-11.7) 10/02/18 06:04 Neut % (Auto) 63.7 % (50.0-75.0) 10/02/18 06:04 Lymph % (Auto) 26.8 % (20.0-40.0) 10/02/18 06:04 [place] % (Auto) 6.1 % (0.0-10.0) 10/02/18 06:04 Eos % (Auto) 2.7 % (0.0-4.0) 10/02/18 06:04 Baso % (Auto) 0.7 % (0.0-2.0) 10/02/18 06:04 Neut # (Auto) 6.7 K/uL (1.8-7.0) 10/02/18 06:04 Lymph # (Auto) 2.8 K/uL (1.0-4.3) 10/02/18 06:04 [place] # (Auto) 0.6 K/uL (0.0-0.8) 10/02/18 06:04 Eos # (Auto) 0.3 K/uL (0.0-0.7) 10/02/18 06:04 Baso # (Auto) 0.1 K/uL (0.0-0.2) 10/02/18 06:04 Sodium 135 mmol/L (132-148) 10/01/18 20:34 Potassium 4.0 mmol/L (3.6-5.2) 10/01/18 20:34 Chloride 98 mmol/L (98-107) 10/01/18 20:34 Carbon Dioxide 24 mmol/L (22-30) 10/01/18 20:34 Anion Gap 17 (10-20) 10/01/18 20:34 BUN 18 mg/dL (7-17) H 10/01/18 20:34 Creatinine 0.7 mg/dL (0.7-1.2) 10/01/18 20:34 Est GFR ( Amer) > 60 10/01/18 20:34 Est GFR (Non-Af Amer) > 60 10/01/18 20:34 POC Glucose (mg/dL) 183 mg/dL (65-110) H 10/02/18 05:13 Random Glucose 378 mg/dL (65-105) H 10/01/18 20:34 Calcium 9.0 mg/dl (8.6-10.4) 10/01/18 20:34 Total Bilirubin 0.3 mg/dL (0.2-1.3) 10/01/18 20:34 AST 36 U/L (14-36) 10/01/18 20:34 ALT 34 U/L (9-52) 10/01/18 20:34 Alkaline Phosphatase 192 U/L (38-126) H D 10/01/18 20:34 Total Protein 7.3 g/dL (6.3-8.3) 10/01/18 20:34 Albumin 3.8 g/dL (3.5-5.0) 10/01/18 20:34 Globulin 3.4 gm/dL (2.2-3.9) 10/01/18 20:34 Albumin/Globulin Ratio 1.1 (1.0-2.1) 10/01/18 20:34 Lipase 498 U/L (23-300) H 10/01/18 20:34 Folate 19.3 ng/mL 10/02/18 05:27 Urine Color Yellow (YELLOW) 10/01/18 19:59 Urine Clarity Hazy (Clear) 10/01/18 19:59 Urine pH 5.0 (5.0-8.0) 10/01/18 19:59 Ur Specific [place] 1.016 (1.003-1.030) 10/01/18 19:59 Urine Protein Negative mg/dL (NEGATIVE) 10/01/18 19:59 Urine Glucose (UA) 3+ mg/dL (Normal) H 10/01/18 19:59 Urine Ketones Negative mg/dL (NEGATIVE) 10/01/18 19:59 Urine Blood 1+ (NEGATIVE) H 10/01/18 19:59 Urine Nitrate Negative (NEGATIVE) 10/01/18 19:59 Urine Bilirubin Negative (NEGATIVE) 10/01/18 19:59 Urine Urobilinogen Normal mg/dL (0.2-1.0) 10/01/18 19:59 Ur Leukocyte Esterase 2+ Chris/uL (Negative) H 10/01/18 19:59 Urine WBC (Auto) 93 /hpf (0-5) H 10/01/18 19:59 Urine RBC (Auto) 20 /hpf (0-3) H 10/01/18 19:59 Ur Squamous Epith Cells 10 /hpf (0-5) H 10/01/18 19:59 Urine Bacteria Occ (<OCC) H 10/01/18 19:59 Urine Yeast (Budding) Many /hpf (NEGATIVE) H 10/01/18 19:59 Urine HCG, Qual Negative (NEGATIVE) 10/01/18 19:59 - Hospital Course Hospital Course: Patient is a 48 yo Female with pmhx of DM, heroin abuse on methadone for the past 6 years, Neuropathy, HTN and hepatitis C that came to ER for worsening abdominal pain today. Patient has been experiencing abdominal pain along with diarrhea in the past 3-4 months. Patient was sent to the ER by her PMD Dr Doty. Patient states her pain is in left lower quadrant area being the worst, states moving makes it worst. Patient admits to several episodes of diarrhea about every 4 days. Patient says bowels are loose dark stools, but has not noticed bright red blood in the stools. Patient admits to having two epidsodes of vomiting, as well as burping that smells like rotten eggs. Patient admits to having taken Peptobismol 3-4 times a day for diarrhea, and one time of imodium which does not help. Patient states her feet are cold and they hurt. Patient denies fevers, chills, dysuria, hematuria, back pain, rash, weakness, numbness. Patient has decided to leave against medical advice. Patient stated she wanted to leave due to not getting her Methadone and will seek methadone at her clinic. The patient is competent and understands the risks of leaving, including permanent disability and/or , and has had the opportunity to ask questions about his/her condition. Patient accepts all risk and liability. Paper work filled. The patient has been informed that she may return for care at any time, and patient will follow with PMD urgently. - Date & Time of H&P Date of H&P: 10/02/18 Time of H&P: 04:00 Discharge Exam - Head Exam Head Exam: ATRAUMATIC, NORMAL INSPECTION, NORMOCEPHALIC - Eye Exam Eye Exam: EOMI, Normal appearance - ENT Exam ENT Exam: Normal Exam - Neck Exam Neck exam: Full Rom - Respiratory Exam Respiratory Exam: Clear to PA & Lateral, NORMAL BREATHING PATTERN, UNREMARKABLE - Cardiovascular Exam Cardiovascular Exam: REGULAR RHYTHM, +S1, +S2 - GI/Abdominal Exam GI & Abdominal Exam: Normal Bowel Sounds, Soft, Tenderness - Neurological Exam Neurological exam: Alert, Oriented x3 - Skin Skin Exam: Dry, Normal Color, Warm Discharge Plan - Follow Up Plan Condition: FAIR Disposition: AGAINST MEDICAL ADVICE Instructions: Acute Abdominal Pain (DC), Acute Abdominal Pain (GEN)
[2018-10-02] MEDS ORDERED: (Novolin R) Insulin Human Regular 100 units/ml vial SC SCH (07:30)
--- NOTE | 2018-10-02 12:02 | CT ---
PROCEDURE: CT Abdomen and Pelvis with oral and IV contrast. HISTORY: llq abd pain COMPARISON: Abdominal ultrasound performed 04/29/17, CT abdomen and pelvis with IV contrast performed 04/28/17 TECHNIQUE: Contiguous axial images of the abdomen and pelvis. Oral and IV contrast was administered. Coronal and Sagittal reformats generated and reviewed. Contrast dose: 100 mL Visipaque IV Radiation dose: Total exam DLP = 1020.69 mGy-cm. This CT exam was performed using one or more of the following dose reduction techniques: Automated exposure control, adjustment of the mA and/or kV according to patient size, and/or use of iterative reconstruction technique. FINDINGS: LOWER THORAX: No visible consolidation, pleural effusion, or pneumothorax. 4 mm right middle lobe pulmonary nodule (series 5, image 2). LIVER: Hepatomegaly. GALLBLADDER AND BILE DUCTS: Unremarkable. PANCREAS: Atrophy. SPLEEN: Unremarkable. ADRENALS: Unremarkable. KIDNEYS AND URETERS: The kidneys enhance symmetrically. No hydronephrosis or obstructing renal calculus. BLADDER: The urinary bladder appears unremarkable. REPRODUCTIVE: Uterus is present. 7 mm left adnexal calcification. APPENDIX: The appendix appears within normal limits of caliber. No secondary signs of acute appendicitis. BOWEL: The stomach is nondistended. The bowel loops appear within normal limits of caliber without evidence of intestinal obstruction. Diverticulosis without CT evidence of acute diverticulitis. PERITONEUM: No significant free fluid. No definite free air. LYMPH NODES: No bulky lymphadenopathy identified. VASCULATURE: No aortic aneurysm. No atherosclerotic calcification or mural plaque present. BONES: Mild degenerative changes. OTHER FINDINGS: None. IMPRESSION: Diverticulosis without CT evidence of acute diverticulitis. Hepatomegaly. 4 mm right middle lobe pulmonary nodule. According to the 2017 Fleischner criteria, the patient is low risk, no routine follow-up is recommended. If the patient is high risk, an optional CT at 12 months is recommended. Additional incidental findings as above. Preliminary impression was provided by [employer]. Study marked for PA review.
[2018-10-02] MEDS ORDERED: Insulin Detemir 100 units/ml Vial (Levemir) SC SCH (22:00)
== END 2018-10-02 07:13 | disposition left against medical advice (07) ==
LOC: C.ER 17:37 → C.9E 10-02 03:02 → UNDOADMIN 10-02 03:02 → C.ER 10-02 07:13 → UNDODISIN 10-02 07:13
DX: K85.90 Acute pancreatitis without necrosis or infection, unspecified (principal); N39.0 Urinary tract infection, site not specified; R19.7 Diarrhea, unspecified; I10 Essential (primary) hypertension; E11.9 Type 2 diabetes mellitus without complications; E78.00 Pure hypercholesterolemia, unspecified; B19.20 Unspecified viral hepatitis C without hepatic coma; F11.10 Opioid abuse, uncomplicated; F17.210 Nicotine dependence, cigarettes, uncomplicated
CPT/HCPCS: 74177; 80053; 81001; 82306; 82607; 82746; 82803; 82948; 83690; 84703; 85025; 96361; 96365; 96375; 96376; 99285; C9113; J0744; J1885; J2405; J2765; J7030; Q9966; Q9967